=== PATIENT | female | born 1950 | race Hispanic/Latino ===

== ENCOUNTER 2016-10-01 13:05 | Emergency (ER) | payer MEDICARE, BC ==
[2016-10-01 13:05] VITALS: BMI 22.7
[2016-10-01 13:10] VITALS: TEMP 98
[2016-10-01] MEDS ORDERED: DiphenhydrAMINE 50 mg/ml Inj IVP STA (13:16)
[2016-10-01] MEDS ORDERED: methylPREDNISolone 1 GM in Sodium Chloride 0.9% 250 ML IV ONE (13:30)
[2016-10-01 13:40] LABS: ADD MANUAL DIFF? NO
[2016-10-01 13:45] LABS: BASO # 0.02 K/mm3 (0.0-2.0); BASO % 0.5 % (0.0-3.0); EOS # 0.1 (0.0-0.7); EOS % 1.1 % (1.5-5.0); GRAN # 3.18 (1.4-6.5); HEMATOCRIT 31.7 % (36.0-48.0); LYMPH # 0.9 (1.2-3.4); LYMPH % 19.2 % (22.0-35.0); MEAN CELL VOLUME 79.8 fL (80.0-105.0); MEAN CORPUSCULAR HEMOGLOBIN 25.4 pg (25.0-35.0); MEAN CORPUSCULAR HGB CONC 31.9 g/dl (31.0-37.0); MEAN PLATELET VOLUME 9.5 fl (7.0-11.0); MONO # 0.3 (0.1-0.6); MONO % 7.2 % (1.0-6.0); PLATELET COUNT 230 10^3/uL (120.0-450.0); RED CELL DISTRIBUTION WIDTH 16.5 % (11.5-14.5); WHITE BLOOD COUNT 4.4 10^3/ul (4.5-11.0)
[2016-10-01 13:53] LABS: ALB/GLOB RATIO 1.6 (1.1-1.8); ALKALINE PHOSPHATASE 72 U/L (38-133); ALT/SGPT 23 U/L (7-56); AST/SGOT 23 U/L (15-39); BILIRUBIN,TOTAL 0.3 mg/dL (0.2-1.3); BLOOD UREA NITROGEN 12 mg/dL (7-21); CALCIUM 9.5 mg/dL (8.4-10.5); CARBON DIOXIDE 26 mmol/L (21-33); CHLORIDE 105 mmol/L (95-110); GFR AFRICAN-AMERICAN > 60; GLUCOSE,RANDOM 86 mg/dL (70-110); POTASSIUM 4.3 mmol/L (3.6-5.0); SODIUM 141 mmol/L (132-148); TOTAL PROTEIN 7.1 g/dL (5.8-8.3)
[2016-10-01 15:08] VITALS: BP 118/75; PULSE 89; RESP 18; O2SAT 98
--- NOTE | 2016-10-01 15:28 | ED PDOC ---
Arrival/HPI - General Chief Complaint: Weakness/Neurological Deficit Time Seen by Provider: 10/01/16 13:12 - History of Present Illness Narrative History of Present Illness (Text): 66yo female with hx of MS, presents from Dr. Bhavna Del Castillo office for a flare. case has been discussed with him and he asked to obtain labs, per script, and to admin 1g solumedrol with benadryl. pt states she is having difficulty ambulating. states this feels identical to her previous MS flare up symptoms. Denies any trauma/injury, no other complaints. Past Medical History - Provider Review Nursing Documentation Reviewed: Yes - Infectious Disease Hx of Infectious Diseases: None - Tetanus Immunization Tetanus Immunization: Unknown - Cardiac Hx Cardiac Disorders: No - Pulmonary Hx Respiratory Disorders: No - Neurological Hx Neurological Disorder: Yes Hx Multiple Sclerosis: Yes - HEENT Hx HEENT Disorder: Yes (wears eyeglassees) - Renal Hx Renal Disorder: No - Endocrine/Metabolic Hx Endocrine Disorders: No - Hematological/Oncological Hx Blood Disorders: No - Integumentary Hx Dermatological Disorder: No - Musculoskeletal/Rheumatological Hx Musculoskeletal Disorders: No Hx Falls: No - Gastrointestinal Hx Gastrointestinal Disorders: No - Genitourinary/Gynecological Hx Genitourinary Disorders: Yes Other/Comment: pt straight caths herself 3/4x's a day - Psychiatric Hx Psychophysiologic Disorder: No Hx Anxiety: No Hx Bipolar Disorder: No Hx Depression: No Hx Emotional Abuse: No Hx Hallucinations: No Hx Panic Disorder: No Hx Post Traumatic Stress Disorder: No Hx Psychosis: No Hx Physical Abuse: No Hx Schizophrenia: No Hx Sexual Abuse: No Hx Substance Use: No - Past Surgical History Past Surgical History: No Previous - Anesthesia Hx Anesthesia: No Hx Anesthesia Reactions: No Hx Malignant Hyperthermia: No - Suicidal Assessment Feels Threatened In Home Enviroment: No Family/Social History Family/Social History: Unknown Family HX Smoking Status: Never Smoked Hx Alcohol Use: No Hx Substance Use: No Hx Substance Use Treatment: No Allergies/Home Meds Allergies/Adverse Reactions: Allergies No Known Allergies Allergy (Verified 10/01/16 13:10) Home Medications: Home Meds Medication Instructions Recorded Confirmed Dalfampridine [Ampyra] 10 mg PO BID 06/20/15 10/01/16 Dimethyl Fumarate [Tecfidera] 240 mg PO BID 06/20/15 10/01/16 Nitrofurantoin Macrocrystal 50 mg PO DAILY 06/20/15 10/01/16 [Macrodantin] Oxybutynin [Ditropan Tab] 10 mg PO QID 06/20/15 10/01/16 Physical Exam - Physical Exam Narrative Physical Exam (Text): - Review of Systems Constitutional: Normal. absent: Fatigue, Weight Change, Fevers Eyes: Normal ENT: denies sore throat, denies tristhmus Respiratory: Normal. absent: SOB, Cough, Sputum Cardiovascular: absent: Chest Pain, Palpitations, Syncope Gastrointestinal: Normal. absent: Abdominal Pain, Diarrhea, Nausea, Vomiting Genitourinary: Normal. absent: Dysuria, Frequency, Hematuria, vaginal bleeding Musculoskeletal: Normal. absent: Arthralgias, Back Pain, Neck Pain Skin: no rashes, no erythema Neurological: difficulty ambulating absent: Focal Weakness Endocrine: Normal Hemo/Lymphatic: Normal Psychiatric: No suicidal or homicidal ideations Physical exam Patient appears age appropriate in no distress, speaking full sentences without difficulty - Systems Exam Head: Present: Atraumatic, Normocephalic Pupils: Present: PERRL Extroacular Muscles: Present: EOMI Conjunctiva: Present: Normal Mouth: Present: Moist Mucous Membranes Neck: Present: Normal Range of Motion. No: MIDLINE TENDERNESS, Paraspinal Tenderness Respiratory/Chest: Present: Clear to Auscultation, Good Air Exchange. No: Respiratory Distress, Accessory Muscle Use, Tachypneic Cardiovascular: Present: Regular Rate and Rhythm, Normal S1, S2, Peripheal Pulses Present. No: Murmurs Abdomen: Present: Normal Bowel Sounds. No: Tenderness, Distention, Peritoneal Signs, Rebound, Guarding Back: Present: Normal Inspection. No: Midline Tenderness, Paraspinal Tenderness Upper Extremity: Present: Normal Inspection. No: Cyanosis, Edema Lower Extremity: Present: Normal Inspection. No: Edema Neurological: Present: GCS=15, Speech Normal, cranial nerves II through XII fully intact with no cerebellar abnormality. No focal neurological deficits. pt states she does not ambulate, but able to transfer without assistance Skin: Present: Warm, Dry, Normal Color. No: Rashes Lymphatic: Present: OX3, NI, NC Psychiatric: Present: Alert, Oriented x 3, Normal Insight, Normal Concentration Vital Signs Reviewed: Yes Vital Signs Temp Pulse Resp BP Pulse Ox 10/01/16 15:06 89 18 118/75 98 10/01/16 13:07 98 F 91 H 16 121/79 97 Temperature: Afebrile Blood Pressure: Normal Pulse: Regular Respiratory Rate: Normal Appearance: Positive for: Well-Appearing Pain Distress: None Mental Status: Positive for: Alert and Oriented X 3 Medical Decision Making ED Course and Treatment: pt from Dr. Bhavna Franco for emergency medical service manager and labs dw Dr. Franco, asked to dc home and he will f/u labs pt states she lives alone. states she feels comfortable being dc'd home with outpatient f/u Pt states she understands to return to the ER right away for new or worsening symptoms or for inability to f/u with PMD or specialist as instructed. Patient states that she fully agrees with and understands discharge instructions. States that she agrees with the plan and disposition. Verbalized and repeated discharge instructions and plan. I have given the patient opportunity to ask any additional questions. - Lab Interpretations Lab Results: 10/01/16 13:33 10/01/16 13:33 Lab Results 10/01/16 13:33: Sodium 141, Potassium 4.3, Chloride 105, Carbon Dioxide 26, Anion Gap 14, BUN 12, Creatinine 0.6, Est GFR ( Amer) > 60, Est GFR (Non- Af Amer) > 60, Random Glucose 86, Calcium 9.5, Total Bilirubin 0.3, AST 23, ALT 23, Alkaline Phosphatase 72, Total Protein 7.1, Albumin 4.4, Globulin 2.7, Albumin/Globulin Ratio 1.6, Vitamin B12 Pending 10/01/16 13:33: WBC 4.4 L D, RBC 3.97, Hgb 10.1 L, Hct 31.7 L, MCV 79.8 L, MCH 25.4, MCHC 31.9, RDW 16.5 H, Plt Count 230, MPV 9.5, Gran % 72.0 H, Lymph % ( Auto) 19.2 L, [place] % (Auto) 7.2 H, Eos % (Auto) 1.1 L, Baso % (Auto) 0.5, Gran # 3.18, Lymph # 0.9 L, [place] # 0.3, Eos # 0.1, Baso # 0.02 - Medication Orders Current Medication Orders: Discontinued Medications Diphenhydramine HCl (Benadryl) 50 mg IVP STAT STA Stop: 10/01/16 13:17 Last Admin: 10/01/16 13:37 Dose: 50 mg Methylprednisolone 1 gm/ (Sodium Chloride) 250 mls @ 250 mls/hr IV ONCE ONE Stop: 10/01/16 14:29 Last Admin: 10/01/16 13:37 Dose: 250 mls/hr Disposition/Present on Arrival - Present on Arrival Any Indicators Present on Arrival: No History of DVT/PE: No History of Uncontrolled Diabetes: No Urinary Catheter: No History of Decub. Ulcer: No History Surgical Site Infection Following: None - Disposition Have Diagnosis and Disposition been Completed?: Yes Diagnosis: Multiple sclerosis exacerbation Disposition: HOME/ ROUTINE Disposition Time: 15:11 Patient Plan: Discharge Condition: GOOD Additional Instructions: PLEASE RETURN TO THE EMERGENCY DEPARTMENT FOR NEW OR WORSENING SYMPTOMS. RETURN RIGHT AWAY IF YOU CANNOT FOLLOW UP WITH YOUR PRIMARY CARE DOCTOR, CLINIC, OR SPECIALIST IN 1-2 DAYS. Referrals: Manuelito Franco MD [Primary Care Provider] - Follow up with primary Forms: [employer] (Eritrean)
== END 2016-10-01 15:16 | disposition home or self-care (01) ==
LOC: ED 13:05
DX: G35 Multiple sclerosis (principal)
CPT/HCPCS: 80053; 80074; 82306; 82607; 85025; 96374; 99285; J1200; J2930

== ENCOUNTER 2016-11-22 08:52 | Emergency (ER) | payer MEDICARE, BC ==
[2016-11-22 08:52] VITALS: BMI 22.7
[2016-11-22] MEDS ORDERED: DiphenhydrAMINE 50 mg/ml Inj IVP STA (09:32)
[2016-11-22] MEDS ORDERED: methylPREDNISolone 1 GM in Sodium Chloride 0.9% 250 ML IV ONE (09:32)
--- NOTE | 2016-11-22 09:34 | ED PDOC ---
Arrival/HPI - General Time Seen by Provider: 11/22/16 09:08 Historian: Patient - History of Present Illness Narrative History of Present Illness (Text): 11/22/16 09: Cindy Osorio is a 66 year old female, whose past medical history includes Multiple sclerosis, presents to the emergency room complaining of difficulty walking. Patient reports feeling lack of balance. Patient was sent by her neurologist Dr. Ramos. She denies any shortness of breath, chest pain, fever, appetite change or any other associated symptoms. PMD: Dr. Muniz Neurologist: Dr. Franco Symptom Onset: Gradual Symptom Course: Unchanged Activities at Onset: Light Context: Walking Associated Symptoms (Text): gait unbalance Past Medical History - Provider Review Nursing Documentation Reviewed: Yes - Infectious Disease Hx of Infectious Diseases: None - Tetanus Immunization Tetanus Immunization: Unknown - Cardiac Hx Cardiac Disorders: No - Pulmonary Hx Respiratory Disorders: No - Neurological Hx Neurological Disorder: Yes Hx Multiple Sclerosis: Yes - HEENT Hx HEENT Disorder: Yes (wears eyeglassees) - Renal Hx Renal Disorder: No - Endocrine/Metabolic Hx Endocrine Disorders: No - Hematological/Oncological Hx Blood Disorders: No - Integumentary Hx Dermatological Disorder: No - Musculoskeletal/Rheumatological Hx Musculoskeletal Disorders: No Hx Falls: No - Gastrointestinal Hx Gastrointestinal Disorders: No - Genitourinary/Gynecological Hx Genitourinary Disorders: Yes Other/Comment: pt straight caths herself 3/4x's a day - Psychiatric Hx Psychophysiologic Disorder: No Hx Anxiety: No Hx Bipolar Disorder: No Hx Depression: No Hx Emotional Abuse: No Hx Hallucinations: No Hx Panic Disorder: No Hx Post Traumatic Stress Disorder: No Hx Psychosis: No Hx Physical Abuse: No Hx Schizophrenia: No Hx Sexual Abuse: No Hx Substance Use: No - Past Surgical History Past Surgical History: No Previous - Anesthesia Hx Anesthesia: No Hx Anesthesia Reactions: No Hx Malignant Hyperthermia: No - Suicidal Assessment Feels Threatened In Home Enviroment: No Family/Social History - Physician Review Nursing Documentation Reviewed: Yes Family/Social History: Unknown Family HX Smoking Status: Never Smoked Hx Alcohol Use: No Hx Substance Use: No Hx Substance Use Treatment: No Allergies/Home Meds Allergies/Adverse Reactions: Allergies No Known Allergies Allergy (Verified 10/01/16 13:10) Home Medications: Home Meds Medication Instructions Recorded Confirmed Dalfampridine [Ampyra] 10 mg PO BID 06/20/15 11/22/16 Dimethyl Fumarate [Tecfidera] 240 mg PO BID 06/20/15 11/22/16 Nitrofurantoin Macrocrystal 50 mg PO DAILY 06/20/15 11/22/16 [Macrodantin] Oxybutynin [Ditropan Tab] 10 mg PO QID 06/20/15 11/22/16 Review of Systems - Review of Systems Constitutional: absent: Fevers Respiratory: absent: SOB Cardiovascular: absent: Chest Pain Gastrointestinal: absent: Abdominal Pain Neurological: Gait Changes (gait unbalance ). absent: Headache Physical Exam Vital Signs Reviewed: Yes Vital Signs Temp Pulse Resp BP Pulse Ox 11/22/16 13:19 90 18 125/79 99 11/22/16 12:46 89 18 124/69 98 11/22/16 11:24 98 H 18 126/74 98 11/22/16 09:23 98.1 F 110 H 17 129/76 98 Temperature: Afebrile Blood Pressure: Normal Pulse: Tachycardic Respiratory Rate: Normal Appearance: Positive for: Well-Appearing, Non-Toxic, Comfortable Pain Distress: None Mental Status: Positive for: Alert and Oriented X 3 - Systems Exam Head: Present: Atraumatic, Normocephalic Pupils: Present: PERRL Extroacular Muscles: Present: EOMI Conjunctiva: Present: Normal Mouth: Present: Moist Mucous Membranes Neck: Present: Normal Range of Motion Respiratory/Chest: Present: Clear to Auscultation, Good Air Exchange. No: Respiratory Distress, Accessory Muscle Use Cardiovascular: Present: Regular Rate and Rhythm, Normal S1, S2. No: Murmurs Abdomen: Present: Normal Bowel Sounds. No: Tenderness, Distention, Peritoneal Signs Upper Extremity: Present: Normal Inspection. No: Cyanosis, Edema Lower Extremity: Present: Normal ROM. No: Edema Neurological: Present: GCS=15, CN II-XII Intact, Speech Normal. No: Gait Normal (abnormal gait) Skin: Present: Warm, Dry, Normal Color. No: Rashes Psychiatric: Present: Alert, Oriented x 3, Normal Insight, Normal Concentration Medical Decision Making ED Course and Treatment: 11/22/16 Impression: 66 year old female with pmh of MS. Has abnormal gait. Differential Diagnosis included but are not limited to: MS exacerbation Plan: -- Labs -- Benadryl and Solumedrol -- Reassess and disposition Progress Notes: Case discussed with Dr. Franco, who states giving patient 1gram of Solumedrol and Benadryl. Perform reevaluation on patient in two hours. 11/22/16 13:22 On reevaluation, patient was able to walk much better with her walker. We discussed options for admission and she states that she does not want to be admitted. She can walk much better and she'll be great at home with support. I advised to make sure to follow up with Dr. Ramos as scheduled. - Lab Interpretations Lab Results: 11/22/16 10:05 11/22/16 10:05 Lab Results 11/22/16 10:05: Sodium 142, Potassium 3.8, Chloride 107, Carbon Dioxide 26, Anion Gap 13, BUN 14, Creatinine 0.6, Est GFR ( Amer) > 60, Est GFR (Non- Af Amer) > 60, Random Glucose 121 H, Calcium 9.2, Magnesium 1.9, Total Bilirubin 0.2, AST 17, ALT 27, Alkaline Phosphatase 63, Total Protein 6.5, Albumin 4.1, Globulin 2.4, Albumin/Globulin Ratio 1.7 11/22/16 10:05: WBC 3.8 L, RBC 3.87, Hgb 10.0 L, Hct 31.8 L, MCV 82.2, MCH 25.8 , MCHC 31.4, RDW 18.7 H, Plt Count 218, MPV 9.2, Gran % 65.7, Lymph % (Auto) 24.5, [place] % (Auto) 8.5 H, Eos % (Auto) 0.8 L, Baso % (Auto) 0.5, Gran # 2.46, Lymph # 0.9 L, [place] # 0.3, Eos # 0.0, Baso # 0.02 I have reviewed the lab results: Yes - Medication Orders Current Medication Orders: Discontinued Medications Diphenhydramine HCl (Benadryl) 50 mg IVP STAT STA Stop: 11/22/16 09:33 Last Admin: 11/22/16 09:51 Dose: 50 mg IVP Administration Document 11/22/16 09:51 SF (Rec: 11/22/16 09:51 SF [facility] [id number]) Charges for Administration # of IVP Administrations 1 Methylprednisolone 1 gm/ (Sodium Chloride) 250 mls @ 500 mls/hr IV ONCE ONE Stop: 11/22/16 10:01 Last Admin: 11/22/16 10:20 Dose: 500 mls/hr eMAR Start Stop Document 11/22/16 10:20 SF (Rec: 11/22/16 10:20 [id number]) Intravenous Solution Start Date 11/22/16 Start Time 10:20 End Date 11/22/16 End time 10:50 Total Infusion Time 30 - Scribe Statement The provider has reviewed the documentation as recorded by the Scribe Savanna Tate Provider Scribe Attestation: All medical record entries made by the Scribe were at my direction and personally dictated by me. I have reviewed the chart and agree that the record accurately reflects my personal performance of the history, physical exam, medical decision making, and the department course for this patient. I have also personally directed, reviewed, and agree with the discharge instructions and disposition. Disposition/Present on Arrival - Present on Arrival Any Indicators Present on Arrival: No History of DVT/PE: No History of Uncontrolled Diabetes: No Urinary Catheter: No History Surgical Site Infection Following: None - Disposition Have Diagnosis and Disposition been Completed?: Yes Diagnosis: Multiple sclerosis exacerbation Disposition: HOME/ ROUTINE Disposition Time: 13:15 Patient Plan: Discharge Condition: IMPROVED Additional Instructions: Ms Osorio, thank you for letting us take care of you today. Your provider was Dr. Person. You were treated for Multiple Sclerosis exacerbation. The emergency medical care you received today was directed at your acute symptoms. If you were prescribed any medication, please fill it and take as directed. It may take several days for your symptoms to resolve. Return to the Emergency Department if your symptoms worsen, do not improve, or if you have any other problems. Please contact your doctor or call one of the physicians/clinics you have been referred to that are listed on the Patient Visit Information form that is included in your discharge packet. Bring any paperwork you were given at discharge with you along with any medications you are taking to your follow up visit. Our treatment cannot replace ongoing medical care by a primary care provider (PCP) outside of the emergency department. Thank you for allowing the [facility] team to be part of your care today. If you had an X-Ray or CT scan: A Radiologist will review the ED reading if any change in treatment is needed we will contact you. If you had a blood, urine, or wound culture: It will take several days for the results, if any change in treatment is needed we will contact you. If you had an STI test: It will take 48 hours for the results. Please call after 1 week if you have not heard back. Referrals: Michael Franco MD [Staff Provider] - Follow up with primary Jamel Muniz MD [Primary Care Provider] - Follow up with primary Forms: [employer] (Afghan)
[2016-11-22 09:40] VITALS: TEMP 98.1
[2016-11-22 10:17] LABS: BASO # 0.02 K/mm3 (0.0-2.0); BASO % 0.5 % (0.0-3.0); EOS % 0.8 % (1.5-5.0); GRAN # 2.46 (1.4-6.5); GRAN % 65.7 % (50.0-68.0); HEMATOCRIT 31.8 % (36.0-48.0); LYMPH # 0.9 (1.2-3.4); LYMPH % 24.5 % (22.0-35.0); MEAN CELL VOLUME 82.2 fl (80.0-105.0); MEAN CORPUSCULAR HEMOGLOBIN 25.8 pg (25.0-35.0); MEAN CORPUSCULAR HGB CONC 31.4 g/dl (31.0-37.0); MEAN PLATELET VOLUME 9.2 fl (7.0-11.0); MONO # 0.3 (0.1-0.6); MONO % 8.5 % (1.0-6.0); RED CELL DISTRIBUTION WIDTH 18.7 % (11.5-14.5); WHITE BLOOD COUNT 3.8 10^3/ul (4.5-11.0)
[2016-11-22 10:24] LABS: ALB/GLOB RATIO 1.7 (1.1-1.8); ALKALINE PHOSPHATASE 63 U/L (38-126); ALT/SGPT 27 U/L (7-56); AST/SGOT 17 U/L (14-36); BILIRUBIN,TOTAL 0.2 mg/dL (0.2-1.3); BLOOD UREA NITROGEN 14 mg/dL (7-21); CALCIUM 9.2 mg/dL (8.4-10.5); CARBON DIOXIDE 26 mmol/L (21-33); CHLORIDE 107 mmol/L (98-107); GFR AFRICAN-AMERICAN > 60; GLUCOSE,RANDOM 121 mg/dL (70-110); MAGNESIUM 1.9 mg/dL (1.7-2.2); POTASSIUM 3.8 mmol/L (3.6-5.0); SODIUM 142 mmol/L (132-148); TOTAL PROTEIN 6.5 g/dL (5.8-8.3)
[2016-11-22 11:24] VITALS: RESP 18
[2016-11-22 13:20] VITALS: BP 125/79; PULSE 90; O2SAT 99
== END 2016-11-22 13:22 | disposition home or self-care (01) ==
LOC: ED 08:52
DX: G35 Multiple sclerosis (principal)
CPT/HCPCS: 80053; 83735; 85025; 96374; 99285; J1200; J2930

== ENCOUNTER 2018-07-17 12:14 | Inpatient (IN) | payer MEDICARE, BC ==
--- NOTE | 2018-07-17 13:24 | ED PDOC ---
Arrival/HPI - General Chief Complaint: Abdominal Pain Time Seen by Provider: 07/17/18 12:32 Historian: Patient - History of Present Illness Narrative History of Present Illness (Text): 07/17/18 13:18 A 68 year old female, whose past medical history includes MS, patient wheelchair bound, presents to the emergency department with a complaint of nausea and vomiting that stared yesterday. Patient also complains of associated dizziness and epigastric pain. Patient has an infusion yesterday and went home later. Patient notes that she started feeling sick after the infusion. She denies fevers, chills, headache, dizziness, chest pain, shortness of breath, dyspnea on exertion, cough, diarrhea, back pain, neck pain, urinary/bowel changes, or any other complaint. Time/Duration: Other (Yesterday) Symptom Onset: Sudden Symptom Course: Unchanged Activities at Onset: Rest, Light Context: Home Past Medical History - Provider Review Nursing Documentation Reviewed: Yes - Infectious Disease Hx of Infectious Diseases: None - Tetanus Immunization Tetanus Immunization: Unknown - Cardiac Hx Cardiac Disorders: No - Pulmonary Hx Respiratory Disorders: No - Neurological Hx Neurological Disorder: Yes Hx Multiple Sclerosis: Yes - HEENT Hx HEENT Disorder: Yes Hx Blind: Yes - Renal Hx Renal Disorder: No - Endocrine/Metabolic Hx Endocrine Disorders: No - Hematological/Oncological Hx Blood Disorders: No - Integumentary Hx Dermatological Disorder: No - Musculoskeletal/Rheumatological Hx Musculoskeletal Disorders: Yes Hx Falls: Yes Hx Unsteady Gait: Yes - Gastrointestinal Hx Gastrointestinal Disorders: No - Genitourinary/Gynecological Hx Genitourinary Disorders: Yes Hx Urinary Tract Infection: Yes - Psychiatric Hx Psychophysiologic Disorder: No Hx Substance Use: No - Past Surgical History Past Surgical History: No Previous - Anesthesia Hx Anesthesia: No Hx Anesthesia Reactions: No Hx Malignant Hyperthermia: No - Suicidal Assessment Feels Threatened In Home Enviroment: No Family/Social History - Physician Review Nursing Documentation Reviewed: Yes Family/Social History: No Known Family HX Smoking Status: Never Smoked Hx Alcohol Use: No Hx Substance Use: No Hx Substance Use Treatment: No Allergies/Home Meds Allergies/Adverse Reactions: Allergies No Known Allergies Allergy (Verified 07/17/18 12:26) Home Medications: Home Meds Medication Instructions Recorded Confirmed Dalfampridine [Ampyra] 10 mg PO BID 06/20/15 07/17/18 Oxybutynin [Ditropan Tab] 10 mg PO QID 06/20/15 07/17/18 Review of Systems - Physician Review All systems were reviewed & negative as marked: Yes - Review of Systems Constitutional: absent: Fevers Respiratory: absent: SOB, Cough Cardiovascular: absent: Chest Pain, NIEVES Gastrointestinal: Abdominal Pain, Nausea, Vomiting. absent: Stool Changes, Diarrhea Genitourinary Female: absent: Urine Output Changes Musculoskeletal: absent: Back Pain, Neck Pain Neurological: absent: Headache, Dizziness Physical Exam Vital Signs Reviewed: Yes Vital Signs Temp Pulse Resp BP Pulse Ox 07/17/18 12:28 98.7 F 130 H 19 123/82 93 L Temperature: Afebrile Blood Pressure: Normal Pulse: Tachycardic Respiratory Rate: Normal Appearance: Positive for: Well-Appearing, Non-Toxic, Comfortable Pain Distress: None Mental Status: Positive for: Alert and Oriented X 3 - Systems Exam Head: Present: Atraumatic, Normocephalic Pupils: Present: PERRL Extroacular Muscles: Present: EOMI Conjunctiva: Present: Normal Mouth: Present: Dry Neck: Present: Normal Range of Motion Respiratory/Chest: Present: Clear to Auscultation, Good Air Exchange. No: Respiratory Distress, Accessory Muscle Use Cardiovascular: Present: Regular Rate and Rhythm, Normal S1, S2. No: Murmurs Abdomen: Present: Tenderness (epigastric tenderness). No: Distention, Perit guallpa Signs, Rebound, Guarding Back: Present: Normal Inspection Upper Extremity: Present: Normal Inspection. No: Cyanosis, Edema Lower Extremity: Present: Normal Inspection. No: Edema Neurological: Present: GCS=15, CN II-XII Intact, Speech Normal Skin: Present: Warm, Dry, Normal Color. No: Rashes Psychiatric: Present: Alert, Oriented x 3, Normal Insight, Normal Concentration Medical Decision Making ED Course and Treatment: 07/17/18 13:26 Impression: A 68 year old female presents to the emergency department with a complaint of nausea, vomiting, dizziness, and epigastric abdominal pain s/p infusion yesterday. Differential Diagnosis included but are not limited to: Gastritis vs. medication reaction Plan: -- EKG -- Chest X-ray -- Labs -- Pepcid, Zofran -- Reassess and disposition Progress Notes: 07/17/18 12:28: EKG read and interpreted by me shows Sinus Tachycardia at 130 BPM. Normal axis. 07/17/18 16:03 Chest X-Ray shows: IMPRESSION: No active disease - Lab Interpretations I have reviewed the lab results: Yes - Scribe Statement The provider has reviewed the documentation as recorded by the Scribe Ita Khalil Provider Scribe Attestation: All medical record entries made by the Scribe were at my direction and personally dictated by me. I have reviewed the chart and agree that the record accurately reflects my personal performance of the history, physical exam, medical decision making, and the department course for this patient. I have also personally directed, reviewed, and agree with the discharge instructions and disposition. Disposition/Present on Arrival - Present on Arrival Any Indicators Present on Arrival: No History of DVT/PE: No History of Uncontrolled Diabetes: No Urinary Catheter: No History of Decub. Ulcer: No History Surgical Site Infection Following: None - Disposition Have Diagnosis and Disposition been Completed?: Yes Diagnosis: GI bleed Disposition: HOSPITALIZED Disposition Time: 16:22 Patient Plan: Admission Condition: GUARDED
[2018-07-17] MEDS ORDERED: Sodium Chloride 0.9% 1,000 ML IV STA ×2 (13:27→15:05)
[2018-07-17 13:57] LABS: BASO # 0.02 K/mm3 (0.0-2.0); BASO % 0.4 % (0.0-3.0); EOS % 0.2 % (1.5-5.0); HEMOGLOBIN 14.2 g/dL (12.0-16.0); LYMPH # 0.9 (1.2-3.4); LYMPH % 16.6 % (22.0-35.0); MEAN CELL VOLUME 91.1 fl (80.0-105.0); MEAN CORPUSCULAR HEMOGLOBIN 28.7 pg (25.0-35.0); MEAN CORPUSCULAR HGB CONC 31.6 g/dl (31.0-37.0); MEAN PLATELET VOLUME 9.5 fl (7.0-11.0); MONO # 0.6 (0.1-0.6); MONO % 10.1 % (1.0-6.0); RBC 4.94 10^6/uL (3.5-6.1); WHITE BLOOD COUNT 5.5 10^3/uL (4.5-11.0)
[2018-07-17 14:11] LABS: ALB/GLOB RATIO 1.5 (1.1-1.8); ALBUMIN 4.6 g/dL (3.0-4.8); ALT/SGPT 17 U/L (7-56); AST/SGOT 25 U/L (14-36); BLOOD UREA NITROGEN 33 mg/dL (7-21); CALCIUM 10.2 mg/dL (8.4-10.5); GFR NON-AFRICAN AMERICAN > 60; LIPASE 93 U/L (23-300)
[2018-07-17 14:16] LABS: INR 1.15; PARTIAL THROMBOPLASTIN TIME 27.8 Seconds (26.9-38.3); PROTHROMBIN TIME 12.8 SECONDS (9.4-12.5)
[2018-07-17 14:19] LABS: TROPONIN I < 0.01 ng/mL
[2018-07-17 14:51] LABS: URINE BILIRUBIN NEGATIVE (NEGATIVE); URINE BLOOD NEGATIVE (NEGATIVE); URINE GLUCOSE (UA) NEGATIVE (NEGATIVE); URINE LEUKOCYTE ESTERASE TRACE Leu/uL (NEGATIVE); URINE PROTEIN TRACE mg/dL (<30 mg/dL); URINE UROBILINOGEN 0.2 E.U./dL (<1 E.U./dL)
[2018-07-17 14:52] LABS: URINE APPEARANCE TURBID (CLEAR); URINE COLOR YELLOW (YELLOW)
[2018-07-17 14:56] LABS: URINE BACTERIA MANY /hpf; URINE RBC 0 - 2 /hpf (0-2); URINE WBC 0 - 2 /hpf (0-6)
--- NOTE | 2018-07-17 16:07 | RAD ---
Date of service: 07/17/2018 PROCEDURE: CHEST RADIOGRAPH, 1 VIEW HISTORY: r/o infiltrate COMPARISON: 11/20/2012 FINDINGS: LUNGS: Clear. PLEURA: No pneumothorax or pleural fluid seen. CARDIOVASCULAR: No aortic atherosclerotic calcification present. Normal. OSSEOUS STRUCTURES: No significant abnormalities. VISUALIZED UPPER ABDOMEN: Normal. OTHER FINDINGS: None. IMPRESSION: No active disease.
[2018-07-17] MEDS ORDERED: Calcium Gluconate in NS 1 GM/50 ML BAG IV ONE (17:06)
[2018-07-17] MEDS ORDERED: Insulin Regular 1 UNITS/0.01 ML ML SC ONE (17:06)
[2018-07-17] MEDS ORDERED: Dextrose 50% SYRINGE Inj (50 ml) IVP STA (17:06)
[2018-07-17] MEDS ORDERED: Iohexol 240 (50 ml) ONE (18:04)
[2018-07-17] MEDS ORDERED: Iohexol 350 MG/100 ML VIAL ONE (18:16)
--- NOTE | 2018-07-17 18:20 | CP.PCM.HP ---
<Emil Hoover - Last Filed: 07/18/18 06:48> History of Present Illness - History of Present Illness History of Present Illness: H&P for hospitalist Dr. Hood Hoover PGY2 Chief Complaint: nausea, vomiting, and abdominal pain Patient is a 68 F with a history of multiple sclerosis presenting with complains of nausea, vomiting and abdominal pain which began last night and lasted right up until patient was evaluated. Patient states yesterday morning she woke up not feeling too well and as a result had poor oral intake. She states that during the night is when the symptoms started. Patient states she vomited several nacho es, however did not notice any dark colored, brown or blood in vomitus. Upon evaluating patient now she states that all her symptoms have resolved. As per patient's sister who was in the room she states this is the third occurence for the patient as far as these symptoms of nausea, vomiting and abdominal pain which last about one day and then resolves. To note patient had one session of IV infusion of Tecfidera yesterday with Dr. Diaz for her MS. Patient denies current fevers, chills, diarrhea, abdominal pain, nausea, vomiting, headache, dizziness, shortness of breath, palpitations. PMD: Dr. Muniz Neurologist: Dr. Diaz Insurance: Medicare Pharmacy: [facility] PMHx: MS diagnosed in 1982. Patient ambulates with walker but mostly uses wheelchair as of the past year. Patient began receiving infusions of new medication tecfidera 6 months ago. When she has an MS exacerbations she usually feels weak and has vision problems. Family Hx: Mother had breast cancer, father had prostate cancer, and maternal grandfather had cancer not sure which type Allergies: denies Social history: lives at home alone, as per sister, the current plan is to set up assisted living for the patient in [facility] where the brother lives. Labs: WBC 5.5, H&H 14.2&45. Plt 468, Na 141, Potassium 5.3, Chloride 100, BUN/Cr 33/0.9, random glucose 147, Ca 10.2, mg 2.1, AST 25, ALT 17, Alk phos 96, Troponin 0.01, Lipase 93 UA: trace protein, negative Nitrates/Blood, trace LE, WBC 0-2 Stool occult: negative Present on Admission - Present on Admission Any Indicators Present on Admission: No Review of Systems - Review of Systems All systems: reviewed and no additional remarkable complaints except (as mentioned in HPI) Past Patient History - Infectious Disease Hx of Infectious Diseases: None - Tetanus Immunizations Tetanus Immunization: Unknown - Past Social History Smoking Status: Never Smoked - CARDIAC Hx Cardiac Disorders: No - PULMONARY Hx Respiratory Disorders: No - NEUROLOGICAL Hx Neurological Disorder: Yes Hx Multiple Sclerosis: Yes - HEENT Hx HEENT Problems: Yes Hx Blind: Yes - RENAL Hx Chronic Kidney Disease: No - ENDOCRINE/METABOLIC Hx Endocrine Disorders: No - HEMATOLOGICAL/ONCOLOGICAL Hx Blood Disorders: No - INTEGUMENTARY Hx Dermatological Problems: No - MUSCULOSKELETAL/RHEUMATOLOGICAL Hx Musculoskeletal Disorders: Yes Hx Falls: Yes Hx Unsteady Gait: Yes - GASTROINTESTINAL Hx Gastrointestinal Disorders: No - GENITOURINARY/GYNECOLOGICAL Hx Genitourinary Disorders: Yes Hx Urinary Tract Infection: Yes - PSYCHIATRIC Hx Psychophysiologic Disorder: No Hx Substance Use: No - SURGICAL HISTORY Hx Surgeries: No - ANESTHESIA Hx Anesthesia: No Hx Anesthesia Reactions: No Hx Malignant Hyperthermia: No Meds Allergies/Adverse Reactions: Allergies Allergy/AdvReac Type Severity Reaction Status Date / Time No Known Allergies Allergy Verified 07/17/18 12:26 Physical Exam - Constitutional Appears: Non-toxic - Head Exam Head Exam: ATRAUMATIC, NORMAL INSPECTION, NORMOCEPHALIC - Eye Exam Eye Exam: EOMI, Normal appearance - ENT Exam ENT Exam: Mucous Membranes Dry - Respiratory Exam Respiratory Exam: Clear to Auscultation Bilateral, NORMAL BREATHING PATTERN - Cardiovascular Exam Cardiovascular Exam: Tachycardia, REGULAR RHYTHM, +S1, +S2 - GI/Abdominal Exam GI & Abdominal Exam: Normal Bowel Sounds, Soft, Tenderness (epigastric region and left lower quadrant). absent: Distended, Guarding - Extremities Exam Extremities exam: Positive for: normal inspection - Back Exam Back exam: NORMAL INSPECTION - Neurological Exam Neurological exam: Alert, CN II-XII Intact, Oriented x3 - Psychiatric Exam Psychiatric exam: Normal Affect, Normal Mood - Skin Skin Exam: Dry, Intact, Normal Color, Warm Results - Vital Signs Recent Vital Signs: Last Vital Signs Temp 98.7 F 07/17/18 12:28 Pulse 110 H 07/17/18 18:18 Resp 16 07/17/18 18:18 BP 122/72 05/17/19 18:18 Pulse Ox 95 07/17/18 18:18 - Labs Result Diagrams: 07/17/18 13:51 07/17/18 13:51 Labs: Laboratory Results - last 24 hr 07/17/18 07/17/18 07/17/18 13:51 13:51 13:51 WBC 5.5 RBC 4.94 Hgb 14.2 D Hct 45.0 MCV 91.1 D MCH 28.7 MCHC 31.6 RDW 15.0 H Plt Count 468 H MPV 9.5 Neut % (Auto) 72.7 H Lymph % (Auto) 16.6 L [place] % (Auto) 10.1 H Eos % (Auto) 0.2 L Baso % (Auto) 0.4 Lymph # (Auto) 0.9 L [place] # (Auto) 0.6 Eos # (Auto) 0.0 Baso # (Auto) 0.02 Absolute Neuts (auto) 4.02 PT 12.8 H INR 1.15 APTT 27.8 Sodium 141 Potassium 5.3 H Chloride 100 Carbon Dioxide 28 Anion Gap 18 BUN 33 H Creatinine 0.9 Est GFR ( Amer) > 60 Est GFR (Non-Af Amer) > 60 Random Glucose 147 H Calcium 10.2 Magnesium 2.1 Total Bilirubin 0.6 AST 25 ALT 17 Alkaline Phosphatase 96 Troponin I < 0.01 Total Protein 7.7 Albumin 4.6 Globulin 3.1 Albumin/Globulin Ratio 1.5 Lipase 93 Urine Color Urine Appearance Urine pH Ur Specific [place] Urine Protein Urine Glucose (UA) Urine Ketones Urine Blood Urine Nitrate Urine Bilirubin Urine Urobilinogen Ur Leukocyte Esterase Urine RBC Urine WBC Urine Bacteria Stool Occult Blood BBK History Checked 07/17/18 07/17/18 07/17/18 14:10 16:00 17:35 WBC RBC Hgb Hct MCV MCH MCHC RDW Plt Count MPV Neut % (Auto) Lymph % (Auto) [place] % (Auto) Eos % (Auto) Baso % (Auto) Lymph # (Auto) [place] # (Auto) Eos # (Auto) Baso # (Auto) Absolute Neuts (auto) PT INR APTT Sodium Potassium Chloride Carbon Dioxide Anion Gap BUN Creatinine Est GFR ( Amer) Est GFR (Non-Af Amer) Random Glucose Calcium Magnesium Total Bilirubin AST ALT Alkaline Phosphatase Troponin I Total Protein Albumin Globulin Albumin/Globulin Ratio Lipase Urine Color Yellow Urine Appearance Turbid Urine pH 6.0 Ur Specific [place] 1.020 Urine Protein Trace H Urine Glucose (UA) Negative Urine Ketones Negative Urine Blood Negative Urine Nitrate Negative Urine Bilirubin Negative Urine Urobilinogen 0.2 Ur Leukocyte Esterase Trace H Urine RBC 0 - 2 Urine WBC 0 - 2 Urine Bacteria Many Stool Occult Blood Negative BBK History Checked No verified bt Assessment & Plan - Assessment and Plan (Free Text) Assessment: Patient is a 68 F with a history of multiple sclerosis presenting with complains of nausea, vomiting and abdominal pain which began last night and lasted right up until patient was evaluated. Plan: Abdominal pain -CT abdomen/pelvis with IV and PO contrast reveals severe enteritis/colitis; will start rocephin and flagyl -ESR, CRP -CBC, CMP, Mag, Phos, Blood and Urine cultures -Tylenol for pain/fever -Protonix -clear liquid diet Nausea and Vomiting -Zofran -NS@125 Hyperkalemia -Calcium gluconate, Insulin 10 mg IVP, D50 -Repeat BMP and EKG in morning Sinus tachycardia -Most likely due to dehydration vs infection, repeat EKG in morning DVT ppx: SCDs, If patient's hospital stay extends beyond a day consider m edication ppx Case discussed and reviewed with Dr. Morataya <Tracy Morataya - Last Filed: 07/18/18 14:04> Results - Vital Signs Recent Vital Signs: Last Vital Signs Temp 98.6 F 07/18/18 08:02 Pulse 112 H 07/18/18 08:02 Resp 20 07/18/18 08:02 BP 122/75 07/18/18 08:02 Pulse Ox 92 L 07/18/18 08:02 - Labs Result Diagrams: 07/18/18 05:15 07/18/18 05:15 Labs: Laboratory Results - last 24 hr 07/17/18 07/17/18 07/17/18 13:51 13:51 14:10 WBC RBC Hgb Hct MCV MCH MCHC RDW Plt Count MPV Neut % (Auto) Lymph % (Auto) [place] % (Auto) Eos % (Auto) Baso % (Auto) Lymph # (Auto) [place] # (Auto) Eos # (Auto) Baso # (Auto) Absolute Neuts (auto) ESR PT 12.8 H INR 1.15 APTT 27.8 Sodium 141 Potassium 5.3 H Chloride 100 Carbon Dioxide 28 Anion Gap 18 BUN 33 H Creatinine 0.9 Est GFR ( Amer) > 60 Est GFR (Non-Af Amer) > 60 Random Glucose 147 H Calcium 10.2 Phosphorus Magnesium 2.1 Total Bilirubin 0.6 AST 25 ALT 17 Alkaline Phosphatase 96 Troponin I < 0.01 C-React Prot High Sens Total Protein 7.7 Albumin 4.6 Globulin 3.1 Albumin/Globulin Ratio 1.5 Lipase 93 Urine Color Yellow Urine Appearance Turbid Urine pH 6.0 Ur Specific [place] 1.020 Urine Protein Trace H Urine Glucose (UA) Negative Urine Ketones Negative Urine Blood Negative Urine Nitrate Negative Urine Bilirubin Negative Urine Urobilinogen 0.2 Ur Leukocyte Esterase Trace H Urine RBC 0 - 2 Urine WBC 0 - 2 Urine Bacteria Many Stool Occult Blood Blood Type Blood Type Confirm Antibody Screen BBK History Checked 07/17/18 07/17/18 07/17/18 16:00 17:35 23:40 WBC RBC Hgb Hct MCV MCH MCHC RDW Plt Count MPV Neut % (Auto) Lymph % (Auto) [place] % (Auto) Eos % (Auto) Baso % (Auto) Lymph # (Auto) [place] # (Auto) Eos # (Auto) Baso # (Auto) Absolute Neuts (auto) ESR PT INR APTT Sodium Potassium Chloride Carbon Dioxide Anion Gap BUN Creatinine Est GFR ( Amer) Est GFR (Non-Af Amer) Random Glucose Calcium Phosphorus Magnesium Total Bilirubin AST ALT Alkaline Phosphatase Troponin I C-React Prot High Sens Total Protein Albumin Globulin Albumin/Globulin Ratio Lipase Urine Color Urine Appearance Urine pH Ur Specific [place] Urine Protein Urine Glucose (UA) Urine Ketones Urine Blood Urine Nitrate Urine Bilirubin Urine Urobilinogen Ur Leukocyte Esterase Urine RBC Urine WBC Urine Bacteria Stool Occult Blood Negative Blood Type A NEGATIVE Blood Type Confirm A NEGATIVE Antibody Screen Negative BBK History Checked No verified bt 07/17/18 07/17/18 07/18/18 23:40 23:40 05:15 WBC 4.3 L D RBC 3.75 Hgb 10.8 L D Hct 34.6 L MCV 92.3 MCH 28.8 MCHC 31.2 RDW 15.3 H Plt Count 365 MPV 9.4 Neut % (Auto) 48.9 L Lymph % (Auto) 28.7 [place] % (Auto) 17.8 H Eos % (Auto) 4.4 Baso % (Auto) 0.2 Lymph # (Auto) 1.2 [place] # (Auto) 0.8 H Eos # (Auto) 0.2 Baso # (Auto) 0.01 Absolute Neuts (auto) 2.11 ESR 35 H PT INR APTT Sodium Potassium Chloride Carbon Dioxide Anion Gap BUN Creatinine Est GFR ( Amer) Est GFR (Non-Af Amer) Random Glucose Calcium Phosphorus Magnesium Total Bilirubin AST ALT Alkaline Phosphatase Troponin I C-React Prot High Sens > 15.00 H Total Protein Albumin Globulin Albumin/Globulin Ratio Lipase Urine Color Urine Appearance Urine pH Ur Specific [place] Urine Protein Urine Glucose (UA) Urine Ketones Urine Blood Urine Nitrate Urine Bilirubin Urine Urobilinogen Ur Leukocyte Esterase Urine RBC Urine WBC Urine Bacteria Stool Occult Blood Blood Type Blood Type Confirm Antibody Screen BBK History Checked 07/18/18 05:15 WBC RBC Hgb Hct MCV MCH MCHC RDW Plt Count MPV Neut % (Auto) Lymph % (Auto) [place] % (Auto) Eos % (Auto) Baso % (Auto) Lymph # (Auto) [place] # (Auto) Eos # (Auto) Baso # (Auto) Absolute Neuts (auto) ESR PT INR APTT Sodium 140 Potassium 4.6 Chloride 106 Carbon Dioxide 26 Anion Gap 12 BUN 23 H Creatinine 0.7 Est GFR ( Amer) > 60 Est GFR (Non-Af Amer) > 60 Random Glucose 98 Calcium 8.9 Phosphorus 3.6 Magnesium 2.0 Total Bilirubin 0.5 AST 44 H D ALT 23 Alkaline Phosphatase 66 Troponin I C-React Prot High Sens Total Protein 5.9 Albumin 3.4 Globulin 2.5 Albumin/Globulin Ratio 1.4 Lipase Urine Color Urine Appearance Urine pH Ur Specific [place] Urine Protein Urine Glucose (UA) Urine Ketones Urine Blood Urine Nitrate Urine Bilirubin Urine Urobilinogen Ur Leukocyte Esterase Urine RBC Urine WBC Urine Bacteria Stool Occult Blood Blood Type Blood Type Confirm Antibody Screen BBK History Checked Attending/Attestation - Attestation I have personally seen and examined this patient.: Yes I have fully participated in the care of the patient.: Yes I have reviewed all pertinent clinical information: Yes Notes (Text): 07/18/18 13:59 Attending note; Patient seen and examined with resident in the ER. Patient is alert and awake Complaining of nausea and vomiting. Patient is not able to tolerate liquid diet. Complaining of constipation for the past 3 days. Denies any fevers, chills. Denies any urinary complaints Patient got infusion of Tecfidera From Dr. Rivera's office yesterday for MS treatment. Patient is mostly using wheelchair. Walks with a walker at home . Patient is a 68 F with a history of multiple sclerosis presenting with complains of nausea, vomiting and abdominal pain which began last night and lasted right up until patient was evaluated. 1. Intractablenausea and vomiting; patient is currently n.p.o.. Started on IV fluids. Monitor closely. Continue Zofran as needed. Continue IV Pepcid. 2. Tachycardia; secondary to dehydration . Continue IV fluids . 3. Abdominal discomfort; CT abdomen and pelvis ordered . Patient never had EGD or colonoscopy . Will get GI evaluation. 4. Multiple sclerosis; continue infusion with Tecfidera as outpatient. 5. Gait instability. Patient uses wheelchair and walker at home. Upon discharge the patient will follow up with PMD Dr. Muniz.
--- NOTE | 2018-07-17 19:34 | CARD ---
APPROVED REPORT Date of service: 07/17/2018 EKG Measurement Heart [id number] <Conclusion> Sinus tachycardia Otherwise normal ECG
[2018-07-17] MEDS ORDERED: Sodium Chloride 0.9% 1,000 ML IV SCH (21:00)
[2018-07-18 00:15] VITALS: BMI 26.6
[2018-07-18] MEDS: POLYETHYLENE GLYCOL 3350 17 GM/Dose PACKET PO SCH ×3 (02:32→17:24)
[2018-07-18] MEDS: Sodium Chloride 0.9% 1,000 ML IV SCH ×3 (02:32→21:33)
[2018-07-18] MEDS: metroNIDAZOLE IV 500 mg/100 ml 500 MG/100 ML BAG IVPB SCH ×4 (02:32→21:26)
[2018-07-18 06:58] LABS: ALB/GLOB RATIO 1.4 (1.1-1.8); ALBUMIN 3.4 g/dL (3.0-4.8); ALT/SGPT 23 U/L (7-56); AST/SGOT 44 U/L (14-36); BLOOD UREA NITROGEN 23 mg/dL (7-21); CALCIUM 8.9 mg/dL (8.4-10.5); GFR NON-AFRICAN AMERICAN > 60
[2018-07-18 07:50] LABS: BASO # 0.01 K/mm3 (0.0-2.0); BASO % 0.2 % (0.0-3.0); EOS # 0.2 (0.0-0.7); EOS % 4.4 % (1.5-5.0); LYMPH # 1.2 (1.2-3.4); LYMPH % 28.7 % (22.0-35.0); MEAN CELL VOLUME 92.3 fl (80.0-105.0); MEAN CORPUSCULAR HEMOGLOBIN 28.8 pg (25.0-35.0); MEAN CORPUSCULAR HGB CONC 31.2 g/dl (31.0-37.0); MEAN PLATELET VOLUME 9.4 fl (7.0-11.0); MONO # 0.8 (0.1-0.6); MONO % 17.8 % (1.0-6.0); RBC 3.75 10^6/uL (3.5-6.1); RED CELL DISTRIBUTION WIDTH 15.3 % (11.5-14.5); WHITE BLOOD COUNT 4.3 10^3/uL (4.5-11.0)
[2018-07-18 08:11] LABS: HEMOGLOBIN 10.8 g/dL (12.0-16.0)
[2018-07-18] MEDS ORDERED: cefTRIAXone 1 gm 1 GM/100 ML BAG IVPB SCH (10:00)
--- NOTE | 2018-07-18 11:27 | CP.PCM.CON ---
<Gerardo Sears - Last Filed: 07/18/18 11:37> History of Present Illness - History of Present Illness History of Present Illness: PGY5 GI Consult for Dr. Junior White Devon is a 68F w/ hx of MS with complaints of abd discomfort, persistent nausea and vomiting. Pt states that he onets of symptoms has been for 1-2 weeks and has been gradually worsening. She notes decreased appetite with nausea and vomiting after meals. She notes discomfort in the epigastrum and midabdomen. She denies any exacerbating or alleviating factors. She denies any recent fever, chills or diaphoresis. Denies any BM for 3 days, which is abnormal for her. Denies any rectal bleeding. She notes that the emesis did not have any coffee- grounds or bright red blood. In the AM, RN notes almost fecalint maternal in emesis. She denies any opiod use and notes limited motility. CT in the ER revealed dilated small bowel and air fluid levels in the colon, as well as solid stool. Denies any previous colonoscopy or endoscopy PMHx: MS diagnosed in 1982. Patient ambulates with walker but mostly uses wheelchair as of the past year. Patient began receiving infusions of new medication tecfidera 6 months ago. When she has an MS exacerbations she usually feels weak and has vision problems. Family Hx: Mother had breast cancer, father had prostate cancer, and maternal grandfather had cancer not sure which type Allergies: denies Social history: lives at home alone, as per sister, the current plan is to set up assisted living for the patient in [facility] where the brother lives. ROS: other than previously noted above, 12-point ROS in neg Past Patient History - Infectious Disease Hx of Infectious Diseases: None - Tetanus Immunizations Tetanus Immunization: Unknown - Past Social History Smoking Status: Never Smoked - CARDIAC Hx Cardiac Disorders: No - PULMONARY Hx Respiratory Disorders: No - NEUROLOGICAL Hx Neurological Disorder: Yes Hx Multiple Sclerosis: Yes - HEENT Hx HEENT Problems: Yes Hx Blind: Yes - RENAL Hx Chronic Kidney Disease: No - ENDOCRINE/METABOLIC Hx Endocrine Disorders: No - HEMATOLOGICAL/ONCOLOGICAL Hx Blood Disorders: No - INTEGUMENTARY Hx Dermatological Problems: No - MUSCULOSKELETAL/RHEUMATOLOGICAL Hx Musculoskeletal Disorders: Yes Hx Falls: Yes Hx Unsteady Gait: Yes - GASTROINTESTINAL Hx Gastrointestinal Disorders: No - GENITOURINARY/GYNECOLOGICAL Hx Genitourinary Disorders: Yes Hx Urinary Tract Infection: Yes - PSYCHIATRIC Hx Psychophysiologic Disorder: No Hx Substance Use: No - SURGICAL HISTORY Hx Surgeries: No - ANESTHESIA Hx Anesthesia: No Hx Anesthesia Reactions: No Hx Malignant Hyperthermia: No Meds Allergies/Adverse Reactions: Allergies Allergy/AdvReac Type Severity Reaction Status Date / Time No Known Allergies Allergy Verified 07/17/18 12:26 - Medications Medications: Current Medications Acetaminophen (Tylenol 325mg Tab) 650 mg PO Q6H PRN PRN Reason: Fever >100.4 F Metronidazole (Flagyl) 500 mg in 100 mls @ 100 mls/hr IVPB Q8 [facility]; Protocol Last Admin: 07/18/18 06:34 Dose: 100 mls/hr Ceftriaxone Sodium (Rocephin 1 Gram Ivpb) 1 gm in 100 mls @ 100 mls/hr IVPB DAILY [facility]; Protocol Last Admin: 07/18/18 10:09 Dose: 100 mls/hr Sodium Chloride (Sodium Chloride 0.9%) 1,000 mls @ 125 mls/hr IV .Q8H [facility] Last Admin: 07/18/18 02:32 Dose: 125 mls/hr Non-Formulary Medication (Dalfampridine [Ampyra]) 10 mg PO BID [facility] Ondansetron HCl (Zofran Inj) 4 mg IVP Q8H PRN PRN Reason: Nausea/Vomiting Last Admin: 07/18/18 03:57 Dose: 4 mg Oxybutynin Chloride (Ditropan Tab) 10 mg PO QID [facility] Pantoprazole Sodium (Protonix Inj) 40 mg IVP DAILY [facility] Last Admin: 07/18/18 10:09 Dose: 40 mg Polyethylene Glycol (Miralax) 17 gm PO BID [facility] Last Admin: 07/18/18 10:10 Dose: 17 gm Physical Exam - Constitutional Appears: Non-toxic, No Acute Distress, Chronically Ill - Head Exam Head Exam: ATRAUMATIC, NORMOCEPHALIC - Eye Exam Eye Exam: Normal appearance - ENT Exam ENT Exam: Mucous Membranes Moist, Normal Exam - Neck Exam Neck exam: Positive for: Normal Inspection - Respiratory Exam Respiratory Exam: Clear to Auscultation Bilateral, NORMAL BREATHING PATTERN. absent: Rales, Rhonchi, Wheezes, Respiratory Distress - Cardiovascular Exam Cardiovascular Exam: REGULAR RHYTHM, +S1, +S2 - GI/Abdominal Exam GI & Abdominal Exam: Diminished Bowel Sounds, Hypoactive Bowel Sounds, Soft. absent: Distended, Firm, Guarding, Hernia, Rebound, Rigid - Rectal Exam Additional comments: pebble like hard stool in rectal vault, no blood or melena, no masses appreciated - Neurological Exam Neurological exam: Alert, Oriented x3 - Psychiatric Exam Psychiatric exam: Normal Affect, Normal Mood - Skin Skin Exam: Dry, Intact, Normal Color, Warm Results - Vital Signs Recent Vital Signs: Last Vital Signs Temp 98.6 F 07/18/18 08:02 Pulse 112 H 07/18/18 08:02 Resp 20 07/18/18 08:02 BP 122/75 07/18/18 08:02 Pulse Ox 92 L 07/18/18 08:02 - Labs Result Diagrams: 07/18/18 05:15 07/18/18 05:15 Labs: Laboratory Results - last 24 hr 07/17/18 07/17/18 07/17/18 13:51 13:51 13:51 WBC 5.5 RBC 4.94 Hgb 14.2 D Hct 45.0 MCV 91.1 D MCH 28.7 MCHC 31.6 RDW 15.0 H Plt Count 468 H MPV 9.5 Neut % (Auto) 72.7 H Lymph % (Auto) 16.6 L [place] % (Auto) 10.1 H Eos % (Auto) 0.2 L Baso % (Auto) 0.4 Lymph # (Auto) 0.9 L [place] # (Auto) 0.6 Eos # (Auto) 0.0 Baso # (Auto) 0.02 Absolute Neuts (auto) 4.02 ESR PT 12.8 H INR 1.15 APTT 27.8 Sodium 141 Potassium 5.3 H Chloride 100 Carbon Dioxide 28 Anion Gap 18 BUN 33 H Creatinine 0.9 Est GFR ( Amer) > 60 Est GFR (Non-Af Amer) > 60 Random Glucose 147 H Calcium 10.2 Phosphorus Magnesium 2.1 Total Bilirubin 0.6 AST 25 ALT 17 Alkaline Phosphatase 96 Troponin I < 0.01 C-React Prot High Sens Total Protein 7.7 Albumin 4.6 Globulin 3.1 Albumin/Globulin Ratio 1.5 Lipase 93 Urine Color Urine Appearance Urine pH Ur Specific [place] Urine Protein Urine Glucose (UA) Urine Ketones Urine Blood Urine Nitrate Urine Bilirubin Urine Urobilinogen Ur Leukocyte Esterase Urine RBC Urine WBC Urine Bacteria Stool Occult Blood Blood Type Blood Type Confirm Antibody Screen BBK History Checked 07/17/18 07/17/18 07/17/18 14:10 16:00 17:35 WBC RBC Hgb Hct MCV MCH MCHC RDW Plt Count MPV Neut % (Auto) Lymph % (Auto) [place] % (Auto) Eos % (Auto) Baso % (Auto) Lymph # (Auto) [place] # (Auto) Eos # (Auto) Baso # (Auto) Absolute Neuts (auto) ESR PT INR APTT Sodium Potassium Chloride Carbon Dioxide Anion Gap BUN Creatinine Est GFR ( Amer) Est GFR (Non-Af Amer) Random Glucose Calcium Phosphorus Magnesium Total Bilirubin AST ALT Alkaline Phosphatase Troponin I C-React Prot High Sens Total Protein Albumin Globulin Albumin/Globulin Ratio Lipase Urine Color Yellow Urine Appearance Turbid Urine pH 6.0 Ur Specific [place] 1.020 Urine Protein Trace H Urine Glucose (UA) Negative Urine Ketones Negative Urine Blood Negative Urine Nitrate Negative Urine Bilirubin Negative Urine Urobilinogen 0.2 Ur Leukocyte Esterase Trace H Urine RBC 0 - 2 Urine WBC 0 - 2 Urine Bacteria Many Stool Occult Blood Negative Blood Type A NEGATIVE Blood Type Confirm Antibody Screen Negative BBK History Checked No verified bt 07/17/18 07/17/18 07/17/18 23:40 23:40 23:40 WBC RBC Hgb Hct MCV MCH MCHC RDW Plt Count MPV Neut % (Auto) Lymph % (Auto) [place] % (Auto) Eos % (Auto) Baso % (Auto) Lymph # (Auto) [place] # (Auto) Eos # (Auto) Baso # (Auto) Absolute Neuts (auto) ESR 35 H PT INR APTT Sodium Potassium Chloride Carbon Dioxide Anion Gap BUN Creatinine Est GFR ( Amer) Est GFR (Non-Af Amer) Random Glucose Calcium Phosphorus Magnesium Total Bilirubin AST ALT Alkaline Phosphatase Troponin I C-React Prot High Sens > 15.00 H Total Protein Albumin Globulin Albumin/Globulin Ratio Lipase Urine Color Urine Appearance Urine pH Ur Specific [place] Urine Protein Urine Glucose (UA) Urine Ketones Urine Blood Urine Nitrate Urine Bilirubin Urine Urobilinogen Ur Leukocyte Esterase Urine RBC Urine WBC Urine Bacteria Stool Occult Blood Blood Type Blood Type Confirm A NEGATIVE Antibody Screen BBK History Checked 07/18/18 07/18/18 05:15 05:15 WBC 4.3 L D RBC 3.75 Hgb 10.8 L D Hct 34.6 L MCV 92.3 MCH 28.8 MCHC 31.2 RDW 15.3 H Plt Count 365 MPV 9.4 Neut % (Auto) 48.9 L Lymph % (Auto) 28.7 [place] % (Auto) 17.8 H Eos % (Auto) 4.4 Baso % (Auto) 0.2 Lymph # (Auto) 1.2 [place] # (Auto) 0.8 H Eos # (Auto) 0.2 Baso # (Auto) 0.01 Absolute Neuts (auto) 2.11 ESR PT INR APTT Sodium 140 Potassium 4.6 Chloride 106 Carbon Dioxide 26 Anion Gap 12 BUN 23 H Creatinine 0.7 Est GFR ( Amer) > 60 Est GFR (Non-Af Amer) > 60 Random Glucose 98 Calcium 8.9 Phosphorus 3.6 Magnesium 2.0 Total Bilirubin 0.5 AST 44 H D ALT 23 Alkaline Phosphatase 66 Troponin I C-React Prot High Sens Total Protein 5.9 Albumin 3.4 Globulin 2.5 Albumin/Globulin Ratio 1.4 Lipase Urine Color Urine Appearance Urine pH Ur Specific [place] Urine Protein Urine Glucose (UA) Urine Ketones Urine Blood Urine Nitrate Urine Bilirubin Urine Urobilinogen Ur Leukocyte Esterase Urine RBC Urine WBC Urine Bacteria Stool Occult Blood Blood Type Blood Type Confirm Antibody Screen BBK History Checked Assessment & Plan - Assessment and Plan (Free Text) Assessment: Cindy Osorio is a 68F w/ hx of MS who presents with abd pain, nausea, and vomiting Enteritis Dilated small bowel, etiology unclear: no specefic transition point; liquid stool noted throughout small intestine and mix of hard stool and liquid noted in colon on CT Ileus Constipation vs distal impaction intractable nausea and vomiting Hepatic cysts, etiology seem simple, waiting on radiology interpretation Plan: -rectal exam did not reveal any evidence of GI bleed, hard stool removed from vault during exam -will keep NPo in the setting of persistent nausea and vomiting -continue zofran scheduled and protonix IV 40mg daily -recommend water enema, out of bed -if no sig rectal output or continued vomiting, will suggest NG tube placement and surgical eval -serial abd examinations -may require Live CT to eval cyst, but not urgent. may be done after symptoms resolve will D/W Dr. Pacheco <Tracy Morataya - Last Filed: 07/18/18 14:14> Meds - Medications Medications: Current Medications Acetaminophen (Tylenol 325mg Tab) 650 mg PO Q6H PRN PRN Reason: Fever >100.4 F Metronidazole (Flagyl) 500 mg in 100 mls @ 100 mls/hr IVPB Q8 [facility]; Protocol Last Admin: 07/18/18 06:34 Dose: 100 mls/hr Ceftriaxone Sodium (Rocephin 1 Gram Ivpb) 1 gm in 100 mls @ 100 mls/hr IVPB DAILY [facility]; Protocol Last Admin: 07/18/18 10:09 Dose: 100 mls/hr Sodium Chloride (Sodium Chloride 0.9%) 1,000 mls @ 125 mls/hr IV .Q8H [facility] Last Admin: 07/18/18 02:32 Dose: 125 mls/hr Non-Formulary Medication (Dalfampridine [Ampyra]) 10 mg PO BID [facility] Ondansetron HCl (Zofran Inj) 4 mg IVP Q8H PRN PRN Reason: Nausea/Vomiting Last Admin: 07/18/18 03:57 Dose: 4 mg Oxybutynin Chloride (Ditropan Tab) 10 mg PO QID [facility] Pantoprazole Sodium (Protonix Inj) 40 mg IVP DAILY [facility] Last Admin: 07/18/18 10:09 Dose: 40 mg Polyethylene Glycol (Miralax) 17 gm PO BID [facility] Last Admin: 07/18/18 10:10 Dose: 17 gm Results - Vital Signs Recent Vital Signs: Last Vital Signs Temp 98.6 F 07/18/18 08:02 Pulse 112 H 07/18/18 08:02 Resp 20 07/18/18 08:02 BP 122/75 07/18/18 08:02 Pulse Ox 92 L 07/18/18 08:02 - Labs Result Diagrams: 07/18/18 05:15 07/18/18 05:15 Labs: Laboratory Results - last 24 hr 07/17/18 07/17/18 07/17/18 13:51 13:51 13:51 WBC 5.5 RBC 4.94 Hgb 14.2 D Hct 45.0 MCV 91.1 D MCH 28.7 MCHC 31.6 RDW 15.0 H Plt Count 468 H MPV 9.5 Neut % (Auto) 72.7 H Lymph % (Auto) 16.6 L [place] % (Auto) 10.1 H Eos % (Auto) 0.2 L Baso % (Auto) 0.4 Lymph # (Auto) 0.9 L [place] # (Auto) 0.6 Eos # (Auto) 0.0 Baso # (Auto) 0.02 Absolute Neuts (auto) 4.02 ESR PT 12.8 H INR 1.15 APTT 27.8 Sodium 141 Potassium 5.3 H Chloride 100 Carbon Dioxide 28 Anion Gap 18 BUN 33 H Creatinine 0.9 Est GFR ( Amer) > 60 Est GFR (Non-Af Amer) > 60 Random Glucose 147 H Calcium 10.2 Phosphorus Magnesium 2.1 Total Bilirubin 0.6 AST 25 ALT 17 Alkaline Phosphatase 96 Troponin I < 0.01 C-React Prot High Sens Total Protein 7.7 Albumin 4.6 Globulin 3.1 Albumin/Globulin Ratio 1.5 Lipase 93 Urine Color Urine Appearance Urine pH Ur Specific [place] Urine Protein Urine Glucose (UA) Urine Ketones Urine Blood Urine Nitrate Urine Bilirubin Urine Urobilinogen Ur Leukocyte Esterase Urine RBC Urine WBC Urine Bacteria Stool Occult Blood Blood Type Blood Type Confirm Antibody Screen BBK History Checked 07/17/18 07/17/18 07/17/18 14:10 16:00 17:35 WBC RBC Hgb Hct MCV MCH MCHC RDW Plt Count MPV Neut % (Auto) Lymph % (Auto) [place] % (Auto) Eos % (Auto) Baso % (Auto) Lymph # (Auto) [place] # (Auto) Eos # (Auto) Baso # (Auto) Absolute Neuts (auto) ESR PT INR APTT Sodium Potassium Chloride Carbon Dioxide Anion Gap BUN Creatinine Est GFR ( Amer) Est GFR (Non-Af Amer) Random Glucose Calcium Phosphorus Magnesium Total Bilirubin AST ALT Alkaline Phosphatase Troponin I C-React Prot High Sens Total Protein Albumin Globulin Albumin/Globulin Ratio Lipase Urine Color Yellow Urine Appearance Turbid Urine pH 6.0 Ur Specific [place] 1.020 Urine Protein Trace H Urine Glucose (UA) Negative Urine Ketones Negative Urine Blood Negative Urine Nitrate Negative Urine Bilirubin Negative Urine Urobilinogen 0.2 Ur Leukocyte Esterase Trace H Urine RBC 0 - 2 Urine WBC 0 - 2 Urine Bacteria Many Stool Occult Blood Negative Blood Type A NEGATIVE Blood Type Confirm Antibody Screen Negative BBK History Checked No verified bt 07/17/18 07/17/18 07/17/18 23:40 23:40 23:40 WBC RBC Hgb Hct MCV MCH MCHC RDW Plt Count MPV Neut % (Auto) Lymph % (Auto) [place] % (Auto) Eos % (Auto) Baso % (Auto) Lymph # (Auto) [place] # (Auto) Eos # (Auto) Baso # (Auto) Absolute Neuts (auto) ESR 35 H PT INR APTT Sodium Potassium Chloride Carbon Dioxide Anion Gap BUN Creatinine Est GFR ( Amer) Est GFR (Non-Af Amer) Random Glucose Calcium Phosphorus Magnesium Total Bilirubin AST ALT Alkaline Phosphatase Troponin I C-React Prot High Sens > 15.00 H Total Protein Albumin Globulin Albumin/Globulin Ratio Lipase Urine Color Urine Appearance Urine pH Ur Specific [place] Urine Protein Urine Glucose (UA) Urine Ketones Urine Blood Urine Nitrate Urine Bilirubin Urine Urobilinogen Ur Leukocyte Esterase Urine RBC Urine WBC Urine Bacteria Stool Occult Blood Blood Type Blood Type Confirm A NEGATIVE Antibody Screen BBK History Checked 07/18/18 07/18/18 05:15 05:15 WBC 4.3 L D RBC 3.75 Hgb 10.8 L D Hct 34.6 L MCV 92.3 MCH 28.8 MCHC 31.2 RDW 15.3 H Plt Count 365 MPV 9.4 Neut % (Auto) 48.9 L Lymph % (Auto) 28.7 [place] % (Auto) 17.8 H Eos % (Auto) 4.4 Baso % (Auto) 0.2 Lymph # (Auto) 1.2 [place] # (Auto) 0.8 H Eos # (Auto) 0.2 Baso # (Auto) 0.01 Absolute Neuts (auto) 2.11 ESR PT INR APTT Sodium 140 Potassium 4.6 Chloride 106 Carbon Dioxide 26 Anion Gap 12 BUN 23 H Creatinine 0.7 Est GFR ( Amer) > 60 Est GFR (Non-Af Amer) > 60 Random Glucose 98 Calcium 8.9 Phosphorus 3.6 Magnesium 2.0 Total Bilirubin 0.5 AST 44 H D ALT 23 Alkaline Phosphatase 66 Troponin I C-React Prot High Sens Total Protein 5.9 Albumin 3.4 Globulin 2.5 Albumin/Globulin Ratio 1.4 Lipase Urine Color Urine Appearance Urine pH Ur Specific [place] Urine Protein Urine Glucose (UA) Urine Ketones Urine Blood Urine Nitrate Urine Bilirubin Urine Urobilinogen Ur Leukocyte Esterase Urine RBC Urine WBC Urine Bacteria Stool Occult Blood Blood Type Blood Type Confirm Antibody Screen BBK History Checked Attending/Attestation - Attestation I have personally seen and examined this patient.: Yes I have fully participated in the care of the patient.: Yes I have reviewed all pertinent clinical information: Yes Notes (Text): Attending note; GI consult note is for DR. Pacheco. Not for Dr. Morataya. <Lon Pacheco V - Last Filed: 07/18/18 23:37> Meds - Medications Medications: Current Medications Acetaminophen (Tylenol 325mg Tab) 650 mg PO Q6H PRN PRN Reason: Fever >100.4 F Acetaminophen (Tylenol 325 Mg Supp) 650 mg RC Q6H PRN PRN Reason: Fever >100.4 F Last Admin: 07/18/18 17:38 Dose: 650 mg Metronidazole (Flagyl) 500 mg in 100 mls @ 100 mls/hr IVPB Q8 [facility]; Protocol Last Admin: 07/18/18 21:26 Dose: 100 mls/hr Ceftriaxone Sodium (Rocephin 1 Gram Ivpb) 1 gm in 100 mls @ 100 mls/hr IVPB DAILY [facility]; Protocol Last Admin: 07/18/18 10:09 Dose: 100 mls/hr Sodium Chloride (Sodium Chloride 0.9%) 1,000 mls @ 125 mls/hr IV .Q8H [facility] Last Admin: 07/18/18 21:33 Dose: 125 mls/hr Non-Formulary Medication (Dalfampridine [Ampyra]) 10 mg PO BID [facility] Last Admin: 07/18/18 17:24 Dose: Not Given Ondansetron HCl (Zofran Inj) 4 mg IVP Q8H PRN PRN Reason: Nausea/Vomiting Last Admin: 07/18/18 13:46 Dose: 4 mg Oxybutynin Chloride (Ditropan Tab) 10 mg PO QID [facility] Last Admin: 07/18/18 21:26 Dose: 10 mg Pantoprazole Sodium (Protonix Inj) 40 mg IVP DAILY [facility] Last Admin: 07/18/18 10:09 Dose: 40 mg Polyethylene Glycol (Miralax) 17 gm PO BID [facility] Last Admin: 07/18/18 17:24 Dose: Not Given Results - Vital Signs Recent Vital Signs: Last Vital Signs Temp 99.8 F H 07/18/18 18:03 Pulse 119 H 07/18/18 18:03 Resp 20 07/18/18 18:03 BP 128/77 07/18/18 18:03 Pulse Ox 91 L 07/18/18 18:03 - Labs Result Diagrams: 07/18/18 05:15 07/18/18 05:15 Labs: Laboratory Results - last 24 hr 07/17/18 07/17/18 07/17/18 23:40 23:40 23:40 WBC RBC Hgb Hct MCV MCH MCHC RDW Plt Count MPV Neut % (Auto) Lymph % (Auto) [place] % (Auto) Eos % (Auto) Baso % (Auto) Lymph # (Auto) [place] # (Auto) Eos # (Auto) Baso # (Auto) Absolute Neuts (auto) ESR 35 H Sodium Potassium Chloride Carbon Dioxide Anion Gap BUN Creatinine Est GFR ( Amer) Est GFR (Non-Af Amer) Random Glucose Calcium Phosphorus Magnesium Total Bilirubin AST ALT Alkaline Phosphatase C-React Prot High Sens > 15.00 H Total Protein Albumin Globulin Albumin/Globulin Ratio Blood Type Confirm A NEGATIVE 07/18/18 07/18/18 05:15 05:15 WBC 4.3 L D RBC 3.75 Hgb 10.8 L D Hct 34.6 L MCV 92.3 MCH 28.8 MCHC 31.2 RDW 15.3 H Plt Count 365 MPV 9.4 Neut % (Auto) 48.9 L Lymph % (Auto) 28.7 [place] % (Auto) 17.8 H Eos % (Auto) 4.4 Baso % (Auto) 0.2 Lymph # (Auto) 1.2 [place] # (Auto) 0.8 H Eos # (Auto) 0.2 Baso # (Auto) 0.01 Absolute Neuts (auto) 2.11 ESR Sodium 140 Potassium 4.6 Chloride 106 Carbon Dioxide 26 Anion Gap 12 BUN 23 H Creatinine 0.7 Est GFR ( Amer) > 60 Est GFR (Non-Af Amer) > 60 Random Glucose 98 Calcium 8.9 Phosphorus 3.6 Magnesium 2.0 Total Bilirubin 0.5 AST 44 H D ALT 23 Alkaline Phosphatase 66 C-React Prot High Sens Total Protein 5.9 Albumin 3.4 Globulin 2.5 Albumin/Globulin Ratio 1.4 Blood Type Confirm Attending/Attestation - Attestation I have personally seen and examined this patient.: Yes I have fully participated in the care of the patient.: Yes I have reviewed all pertinent clinical information: Yes Notes (Text): This is an addendum to the consultation report dictated by the GI fellow. The patient was seen and evaluated here earlier. Discussed with the medical transcriber. Imaging studies were reviewed. This 68-year-old patient with a long history of multiple sclerosis was admitted for episodes of vomiting for the past 10 days. Symptoms getting progressively worse. Patient does have significantly distended small bowel loops. Patient does have some fecal retention. But small bowel distention is more significant. This patient with a long history of multiple sclerosis Rule out ileus versus partial small bowel obstruction. Would recommend 1. NG tube decompression 2. IV fluid 3. Surgical follow-up 4. Abdominal x-ray in the a.m. 5. Gentle rectal enemas 07/18/18 23:33
--- NOTE | 2018-07-18 14:17 | CT ---
Date of service: 07/17/2018 PROCEDURE: CT Abdomen and Pelvis with contrast HISTORY: abd pain COMPARISON: None. TECHNIQUE: Contrast dose: 100 cc of Omni 350 Radiation dose: Total exam DLP = 319.35 mGy-cm. This CT exam was performed using one or more of the following dose reduction techniques: Automated exposure control, adjustment of the mA and/or kV according to patient size, and/or use of iterative reconstruction technique. FINDINGS: LOWER THORAX: Unremarkable. LIVER: Unremarkable. No gross lesion or ductal dilatation. Multiple small hepatic cysts. GALLBLADDER AND BILE DUCTS: Unremarkable. PANCREAS: Unremarkable. No gross lesion or ductal dilatation. SPLEEN: Unremarkable. ADRENALS: Unremarkable. No mass. KIDNEYS AND URETERS: Unremarkable. No hydronephrosis. No solid mass. VASCULATURE: Unremarkable. No aortic aneurysm. No aortic atherosclerotic calcification or mural plaque present. BOWEL: Multiple dilated fluid-filled loops of small bowel are seen. There is also some fluid in the cecum. There is no transition point to suggest obstruction. Findings are most consistent with ileus. This could be secondary to enteritis. APPENDIX: Normal appendix. PERITONEUM: Unremarkable. No free fluid. No free air. LYMPH NODES: Unremarkable. No enlarged lymph nodes. BLADDER: Unremarkable. REPRODUCTIVE: Unremarkable. BONES: No acute fracture. OTHER FINDINGS: The report concurs with the preliminary [facility] report IMPRESSION: Multiple dilated fluid-filled loops of small bowel are seen. There is also some fluid in the cecum. There is no transition point to suggest obstruction. Findings are most consistent with ileus. This could be secondary to enteritis.
--- NOTE | 2018-07-18 15:25 | CP.PCM.PN ---
<Darwin Robles - Last Filed: 07/18/18 17:14> Subjective - Date & Time of Evaluation Date of Evaluation: 07/18/18 Time of Evaluation: 08:20 - Subjective Subjective: Darwin Robles DO PGY1 Hospitalist Progress Note for Dr Morataya Patient seen and examined at bedside. She still c/o nausea, non bloody vomiting and diffuse abdominal pain. Patient denies hematochezia, melena, fever, chills, CP, SOB, palpitations Objective - Vital Signs/Intake and Output Vital Signs (last 24 hours): Temp Pulse Resp BP Pulse Ox 98.6 F 112 H 20 122/75 92 L 07/18/18 08:02 07/18/18 08:02 07/18/18 08:02 07/18/18 08:02 07/18/18 08:02 Intake and Output: 07/18/18 07/18/18 06:59 18:59 Intake Total 1010 Balance 1010 - Medications Medications: Current Medications Acetaminophen (Tylenol 325mg Tab) 650 mg PO Q6H PRN PRN Reason: Fever >100.4 F Metronidazole (Flagyl) 500 mg in 100 mls @ 100 mls/hr IVPB Q8 [facility]; Protocol Last Admin: 07/18/18 13:46 Dose: 100 mls/hr Ceftriaxone Sodium (Rocephin 1 Gram Ivpb) 1 gm in 100 mls @ 100 mls/hr IVPB DAILY [facility]; Protocol Last Admin: 07/18/18 10:09 Dose: 100 mls/hr Sodium Chloride (Sodium Chloride 0.9%) 1,000 mls @ 125 mls/hr IV .Q8H [facility] Last Admin: 07/18/18 02:32 Dose: 125 mls/hr Non-Formulary Medication (Dalfampridine [Ampyra]) 10 mg PO BID [facility] Ondansetron HCl (Zofran Inj) 4 mg IVP Q8H PRN PRN Reason: Nausea/Vomiting Last Admin: 07/18/18 13:46 Dose: 4 mg Oxybutynin Chloride (Ditropan Tab) 10 mg PO QID [facility] Last Admin: 07/18/18 13:46 Dose: 10 mg Pantoprazole Sodium (Protonix Inj) 40 mg IVP DAILY [facility] Last Admin: 07/18/18 10:09 Dose: 40 mg Polyethylene Glycol (Miralax) 17 gm PO BID [facility] Last Admin: 07/18/18 10:10 Dose: 17 gm - Labs Labs: 07/18/18 05:15 07/18/18 05:15 PT 12.8 SECONDS (9.4-12.5) H 07/17/18 13:51 INR 1.15 07/17/18 13:51 APTT 27.8 Seconds (26.9-38.3) 07/17/18 13:51 - Constitutional Appears: Well, Non-toxic - Head Exam Head Exam: ATRAUMATIC, NORMAL INSPECTION, NORMOCEPHALIC - Eye Exam Eye Exam: EOMI, Normal appearance, PERRL Pupil Exam: NORMAL ACCOMODATION, PERRL - ENT Exam ENT Exam: Mucous Membranes Moist - Respiratory Exam Respiratory Exam: Clear to Ausculation Bilateral, NORMAL BREATHING PATTERN - Cardiovascular Exam Cardiovascular Exam: REGULAR RHYTHM, +S1, +S2 - GI/Abdominal Exam GI & Abdominal Exam: Soft, Tenderness (epigastric/jaquelin-umbilical). absent: Rigid, Rebound - Extremities Exam Extremities Exam: Full ROM, Normal Capillary Refill, Normal Inspection. absent: Joint Swelling, Pedal Edema - Back Exam Back Exam: NORMAL INSPECTION - Neurological Exam Neurological Exam: Alert, Awake, CN II-XII Intact, Normal Gait, Oriented x3 - Psychiatric Exam Psychiatric exam: Normal Affect, Normal Mood - Skin Skin Exam: Dry, Intact, Normal Color, Warm Assessment and Plan - Assessment and Plan (Free Text) Assessment: 68 y/o female with PMH of MS presents with abdominal pain, nausea, NB vomiting. Admitted to med/surg for further work up Plan: Abdominal pain/ Nausea/vomiting: -CT A/P: dilated small bowel. liquid stool noted throughout small intestine and mix of hard stool and liquid noted in colon -NGT placed -continue zofran, protonix 40 IV -continue abx flagyl, rocephin -NPO -IVF: NS@ 150 cc/hr -continue tylenol prn for fever -GI following DR Pacheco. Possible EGD on Friday -surgery on board, Dr Sanabria Constipation: -rectal exam shows hard stool -water enema h/o multiple sclerosis: -continue home med ampyra -patient uses wheelchair/walker at home PPX: DVT: SCD GI: protonix PT/OT Case reviewed and plan discussed with attending Dr Hood Robles, DO <Tracy Morataya - Last Filed: 07/18/18 17:56> Objective - Vital Signs/Intake and Output Vital Signs (last 24 hours): Temp Pulse Resp BP Pulse Ox 99.8 F H 112 H 20 122/75 92 L 07/18/18 17:38 07/18/18 08:02 07/18/18 08:02 07/18/18 08:02 07/18/18 08:02 Intake and Output: 07/18/18 07/18/18 06:59 18:59 Intake Total 1010 Balance 1010 - Medications Medications: Current Medications Acetaminophen (Tylenol 325mg Tab) 650 mg PO Q6H PRN PRN Reason: Fever >100.4 F Acetaminophen (Tylenol 325 Mg Supp) 650 mg RC Q6H PRN PRN Reason: Fever >100.4 F Last Admin: 07/18/18 17:38 Dose: 650 mg Metronidazole (Flagyl) 500 mg in 100 mls @ 100 mls/hr IVPB Q8 [facility]; Protocol Last Admin: 07/18/18 13:46 Dose: 100 mls/hr Ceftriaxone Sodium (Rocephin 1 Gram Ivpb) 1 gm in 100 mls @ 100 mls/hr IVPB DAILY [facility]; Protocol Last Admin: 07/18/18 10:09 Dose: 100 mls/hr Sodium Chloride (Sodium Chloride 0.9%) 1,000 mls @ 125 mls/hr IV .Q8H [facility] Last Admin: 07/18/18 09:00 Dose: 125 mls/hr Sodium Chloride (Sodium Chloride 0.9%) 500 mls @ 999 mls/hr IV .Q31M [facility] Stop: 07/18/18 18:00 Last Admin: 07/18/18 17:41 Dose: 999 mls/hr Non-Formulary Medication (Dalfampridine [Ampyra]) 10 mg PO BID [facility] Last Admin: 07/18/18 17:24 Dose: Not Given Ondansetron HCl (Zofran Inj) 4 mg IVP Q8H PRN PRN Reason: Nausea/Vomiting Last Admin: 07/18/18 13:46 Dose: 4 mg Oxybutynin Chloride (Ditropan Tab) 10 mg PO QID [facility] Last Admin: 07/18/18 17:24 Dose: Not Given Pantoprazole Sodium (Protonix Inj) 40 mg IVP DAILY [facility] Last Admin: 07/18/18 10:09 Dose: 40 mg Polyethylene Glycol (Miralax) 17 gm PO BID [facility] Last Admin: 07/18/18 17:24 Dose: Not Given - Labs Labs: 07/18/18 05:15 07/18/18 05:15 PT 12.8 SECONDS (9.4-12.5) H 07/17/18 13:51 INR 1.15 07/17/18 13:51 APTT 27.8 Seconds (26.9-38.3) 07/17/18 13:51 Attending/Attestation - Attestation I have personally seen and examined this patient.: Yes I have fully participated in the care of the patient.: Yes I have reviewed all pertinent clinical information, including history, physical exam and plan: Yes Notes (Text): 07/18/18 17:49 Attending note; Patient seen and examined with resident. currently npo. Patient is alert and awake still Complaining of nausea and vomiting. seen by GI today. NG tube placed. Patient is a 68 F with a history of multiple sclerosis presenting with complains of nausea, vomiting and abdominal pain which began last night and lasted right up until patient was evaluated. 1. Intractablenausea and vomiting; patient is currently n.p.o.. Started on IV fluids. s/p NG tube placement. Continue Zofran as needed. Continue IV Protonix. 2. Tachycardia; secondary to dehydration . Continue IV fluids . 3. Abdominal discomfort; CT abdomen and pelvis showed multiple dilated bowel loop fluid filled, liquid stool noted throughout small intestine and mix of hard stool. no transition point noted suggesting ileus vs enteritis. Started on IV rocephin and flagyl. GI evaluation appreciated. Started on enema. plan for EGD on Friday. Surgery evaluation appreciated. 4. Multiple sclerosis; continue infusion with Tecfidera as outpatient. 5. Gait instability. Patient uses wheelchair and walker at home. 6. Urinary retention due to MS. Straight cath prn. Monitor closely with GI and surgery. Diagnosis, treatment options discussed with patient in detail.
--- NOTE | 2018-07-18 15:47 | RAD ---
Date of service: 07/18/2018 HISTORY: NGT placement COMPARISON: 07/17/2018 TECHNIQUE: 1 view obtained. FINDINGS: LUNGS: No active pulmonary disease. PLEURA: No significant pleural effusion identified, no pneumothorax apparent. CARDIOVASCULAR: No aortic atherosclerotic calcification present. Normal cardiac size. No pulmonary vascular congestion. OSSEOUS STRUCTURES: No significant abnormalities. VISUALIZED UPPER ABDOMEN: Nasogastric tube in satisfactory position OTHER FINDINGS: None. IMPRESSION: No active disease. Nasogastric tube in satisfactory position
[2018-07-18] MEDS: DALFAMPRIDINE 10 MG PO SCH (17:24)
[2018-07-18] MEDS ORDERED: Sodium Chloride 0.9% 500 ML IV STA (17:30)
--- NOTE | 2018-07-18 18:30 | CP.PCM.CON ---
History of Present Illness - History of Present Illness History of Present Illness: General Surgery Consult Re: SBO HPI: 68F presented to ED complaining of abd discomfort, persistent nausea and dark brown emesis. Ache gradually progressively worsened over 1-2 weeks. Reports decreased appetite as well. Currently, denies any pain and states it comes and goes mainly in the midabdomen. Denies any exacerbating or alleviating factors. Denies fever, chills, shortness of breath, chest pain, palpitations, hematemesis, hematochezia, melena. Last BM was 3 days ago, but she usually has a BM daily. Denies any opiod use. Notes she can ambulate with walker and help but mostly uses wheelchair as of the past year. No prior colonoscopy. PMH: Multiple sclerosis diagnosed in 1982 PSH: Denies SH: Social EtOH. No tobacco or drug use FH: Mother - breast cancer. Father - prostate cancer All: NKDA Meds: See MAR Review of Systems - Review of Systems All systems: reviewed and no additional remarkable complaints except (as per HPI) Past Patient History - Infectious Disease Hx of Infectious Diseases: None - Tetanus Immunizations Tetanus Immunization: Unknown - Past Social History Smoking Status: Never Smoked - CARDIAC Hx Cardiac Disorders: No - PULMONARY Hx Respiratory Disorders: No - NEUROLOGICAL Hx Neurological Disorder: Yes Hx Multiple Sclerosis: Yes - HEENT Hx HEENT Problems: Yes Hx Blind: Yes - RENAL Hx Chronic Kidney Disease: No - ENDOCRINE/METABOLIC Hx Endocrine Disorders: No - HEMATOLOGICAL/ONCOLOGICAL Hx Blood Disorders: No - INTEGUMENTARY Hx Dermatological Problems: No - MUSCULOSKELETAL/RHEUMATOLOGICAL Hx Musculoskeletal Disorders: Yes Hx Falls: Yes Hx Unsteady Gait: Yes - GASTROINTESTINAL Hx Gastrointestinal Disorders: No - GENITOURINARY/GYNECOLOGICAL Hx Genitourinary Disorders: Yes Hx Urinary Tract Infection: Yes - PSYCHIATRIC Hx Psychophysiologic Disorder: No Hx Substance Use: No - SURGICAL HISTORY Hx Surgeries: No - ANESTHESIA Hx Anesthesia: No Hx Anesthesia Reactions: No Hx Malignant Hyperthermia: No Meds Allergies/Adverse Reactions: Allergies Allergy/AdvReac Type Severity Reaction Status Date / Time No Known Allergies Allergy Verified 07/17/18 12:26 - Medications Medications: Current Medications Acetaminophen (Tylenol 325mg Tab) 650 mg PO Q6H PRN PRN Reason: Fever >100.4 F Acetaminophen (Tylenol 325 Mg Supp) 650 mg RC Q6H PRN PRN Reason: Fever >100.4 F Last Admin: 07/18/18 17:38 Dose: 650 mg Metronidazole (Flagyl) 500 mg in 100 mls @ 100 mls/hr IVPB Q8 [facility]; Protocol Last Admin: 07/18/18 13:46 Dose: 100 mls/hr Ceftriaxone Sodium (Rocephin 1 Gram Ivpb) 1 gm in 100 mls @ 100 mls/hr IVPB DAILY [facility]; Protocol Last Admin: 07/18/18 10:09 Dose: 100 mls/hr Sodium Chloride (Sodium Chloride 0.9%) 1,000 mls @ 125 mls/hr IV .Q8H [facility] Last Admin: 07/18/18 09:00 Dose: 125 mls/hr Non-Formulary Medication (Dalfampridine [Ampyra]) 10 mg PO BID [facility] Last Admin: 07/18/18 17:24 Dose: Not Given Ondansetron HCl (Zofran Inj) 4 mg IVP Q8H PRN PRN Reason: Nausea/Vomiting Last Admin: 07/18/18 13:46 Dose: 4 mg Oxybutynin Chloride (Ditropan Tab) 10 mg PO QID [facility] Last Admin: 07/18/18 17:24 Dose: Not Given Pantoprazole Sodium (Protonix Inj) 40 mg IVP DAILY [facility] Last Admin: 07/18/18 10:09 Dose: 40 mg Polyethylene Glycol (Miralax) 17 gm PO BID [facility] Last Admin: 07/18/18 17:24 Dose: Not Given Physical Exam - Constitutional Appears: Non-toxic, No Acute Distress - Head Exam Head Exam: ATRAUMATIC, NORMOCEPHALIC - Eye Exam Eye Exam: EOMI, PERRL. absent: Scleral icterus - ENT Exam ENT Exam: Mucous Membranes Moist Additional comments: NGT in place with brown liquid output, 120cc in canister trachea midline - Neck Exam Neck exam: Negative for: Lymphadenopathy, Tenderness - Respiratory Exam Respiratory Exam: NORMAL BREATHING PATTERN. absent: Respiratory Distress - GI/Abdominal Exam GI & Abdominal Exam: Distended (non tympanic), Guarding, Soft, Tenderness (minimal on deep palpation). absent: Firm, Rebound, Rigid - Rectal Exam Rectal Exam: Deferred - Extremities Exam Extremities exam: Positive for: normal capillary refill. Negative for: calf tenderness, pedal edema - Back Exam Back exam: absent: CVA tenderness (L), CVA tenderness (R) - Neurological Exam Neurological exam: Alert, Oriented x3 - Psychiatric Exam Psychiatric exam: Normal Affect, Normal Mood - Skin Skin Exam: Dry, Warm Results - Vital Signs Recent Vital Signs: Last Vital Signs Temp 99.8 F H 07/18/18 18:03 Pulse 119 H 07/18/18 18:03 Resp 20 07/18/18 18:03 BP 128/77 07/18/18 18:03 Pulse Ox 91 L 07/18/18 18:03 - Labs Result Diagrams: 07/18/18 05:15 07/18/18 05:15 Labs: Laboratory Results - last 24 hr 07/17/18 07/17/18 07/17/18 17:35 23:40 23:40 WBC RBC Hgb Hct MCV MCH MCHC RDW Plt Count MPV Neut % (Auto) Lymph % (Auto) [place] % (Auto) Eos % (Auto) Baso % (Auto) Lymph # (Auto) [place] # (Auto) Eos # (Auto) Baso # (Auto) Absolute Neuts (auto) ESR 35 H Sodium Potassium Chloride Carbon Dioxide Anion Gap BUN Creatinine Est GFR ( Amer) Est GFR (Non-Af Amer) Random Glucose Calcium Phosphorus Magnesium Total Bilirubin AST ALT Alkaline Phosphatase C-React Prot High Sens Total Protein Albumin Globulin Albumin/Globulin Ratio Blood Type A NEGATIVE Blood Type Confirm A NEGATIVE Antibody Screen Negative 07/17/18 07/18/18 07/18/18 23:40 05:15 05:15 WBC 4.3 L D RBC 3.75 Hgb 10.8 L D Hct 34.6 L MCV 92.3 MCH 28.8 MCHC 31.2 RDW 15.3 H Plt Count 365 MPV 9.4 Neut % (Auto) 48.9 L Lymph % (Auto) 28.7 [place] % (Auto) 17.8 H Eos % (Auto) 4.4 Baso % (Auto) 0.2 Lymph # (Auto) 1.2 [place] # (Auto) 0.8 H Eos # (Auto) 0.2 Baso # (Auto) 0.01 Absolute Neuts (auto) 2.11 ESR Sodium 140 Potassium 4.6 Chloride 106 Carbon Dioxide 26 Anion Gap 12 BUN 23 H Creatinine 0.7 Est GFR ( Amer) > 60 Est GFR (Non-Af Amer) > 60 Random Glucose 98 Calcium 8.9 Phosphorus 3.6 Magnesium 2.0 Total Bilirubin 0.5 AST 44 H D ALT 23 Alkaline Phosphatase 66 C-React Prot High Sens > 15.00 H Total Protein 5.9 Albumin 3.4 Globulin 2.5 Albumin/Globulin Ratio 1.4 Blood Type Blood Type Confirm Antibody Screen - Imaging and Cardiology CT scan - abdomen Status: Image reviewed by me, Report reviewed by me Assessment & Plan - Assessment and Plan (Free Text) Assessment: 68F with neuropathic ileus, possibly with some enteritis Plan: NPO IVF NGT in place Strict I&Os Pain control PRN Monitor for bowel function Serial abd exams Dulcolax suppository Recommend daily bowel regimen once return of bowel function and as outpatient D/W Dr. Elly Luciano PGY4
--- NOTE | 2018-07-18 19:08 | CARD ---
APPROVED REPORT Date of service: 07/18/2018 EKG Measurement Heart [id number] <Conclusion> Sinus tachycardia Otherwise normal ECG
[2018-07-19] MEDS: Sodium Chloride 0.9% 1,000 ML IV SCH ×2 (01:00→18:44)
[2018-07-19] MEDS: metroNIDAZOLE IV 500 mg/100 ml 500 MG/100 ML BAG IVPB SCH (05:14)
[2018-07-19 06:50] LABS: BASO # 0.03 K/mm3 (0.0-2.0); BASO % 0.6 % (0.0-3.0); EOS # 0.3 (0.0-0.7); EOS % 6.7 % (1.5-5.0); HEMOGLOBIN 9.5 g/dL (12.0-16.0); LYMPH # 1.2 (1.2-3.4); LYMPH % 24.8 % (22.0-35.0); MEAN CELL VOLUME 92.9 fl (80.0-105.0); MEAN CORPUSCULAR HEMOGLOBIN 27.9 pg (25.0-35.0); MEAN CORPUSCULAR HGB CONC 30.1 g/dl (31.0-37.0); MEAN PLATELET VOLUME 9.2 fl (7.0-11.0); MONO # 0.7 (0.1-0.6); MONO % 15.4 % (1.0-6.0); RBC 3.4 10^6/uL (3.5-6.1); RED CELL DISTRIBUTION WIDTH 15.1 % (11.5-14.5); WHITE BLOOD COUNT 4.8 10^3/uL (4.5-11.0)
[2018-07-19 06:53] LABS: ALB/GLOB RATIO 1.2 (1.1-1.8); ALBUMIN 2.9 g/dL (3.0-4.8); ALT/SGPT 21 U/L (7-56); AST/SGOT 19 U/L (14-36); BLOOD UREA NITROGEN 18 mg/dL (7-21); CALCIUM 8.5 mg/dL (8.4-10.5); GFR NON-AFRICAN AMERICAN > 60
--- NOTE | 2018-07-19 08:25 | CP.PCM.PN ---
<BurgessZachary - Last Filed: 07/19/18 08:21> Subjective - Date & Time of Evaluation Date of Evaluation: 07/19/18 Time of Evaluation: 07:20 - Subjective Subjective: General Surgery Pt seen and examined. NGT is bothering her. Denies abd pain, nausea, emesis, fever. No BM or flatus (had some stool with an enema given yesterday). No new complaints. Objective - Vital Signs/Intake and Output Vital Signs (last 24 hours): Temp Pulse Resp BP Pulse Ox 98.6 F 118 H 20 137/86 93 L 07/19/18 08:01 07/19/18 08:01 07/19/18 08:01 07/19/18 08:01 07/19/18 08:01 Intake and Output: 07/19/18 07/19/18 06:59 18:59 Intake Total 1500 Output Total 2350 Balance -850 - Medications Medications: Current Medications Acetaminophen (Tylenol 325mg Tab) 650 mg PO Q6H PRN PRN Reason: Fever >100.4 F Acetaminophen (Tylenol 325 Mg Supp) 650 mg RC Q6H PRN PRN Reason: Fever >100.4 F Last Admin: 07/18/18 17:38 Dose: 650 mg Metronidazole (Flagyl) 500 mg in 100 mls @ 100 mls/hr IVPB Q8 [facility]; Protocol Last Admin: 07/19/18 05:14 Dose: 100 mls/hr Ceftriaxone Sodium (Rocephin 1 Gram Ivpb) 1 gm in 100 mls @ 100 mls/hr IVPB DAILY [facility]; Protocol Last Admin: 07/18/18 10:09 Dose: 100 mls/hr Sodium Chloride (Sodium Chloride 0.9%) 1,000 mls @ 125 mls/hr IV .Q8H [facility] Last Admin: 07/19/18 01:00 Dose: Not Given Non-Formulary Medication (Dalfampridine [Ampyra]) 10 mg PO BID [facility] Last Admin: 07/18/18 17:24 Dose: Not Given Ondansetron HCl (Zofran Inj) 4 mg IVP Q8H PRN PRN Reason: Nausea/Vomiting Last Admin: 07/18/18 13:46 Dose: 4 mg Oxybutynin Chloride (Ditropan Tab) 10 mg PO QID [facility] Last Admin: 07/18/18 21:26 Dose: 10 mg Pantoprazole Sodium (Protonix Inj) 40 mg IVP DAILY [facility] Last Admin: 07/18/18 10:09 Dose: 40 mg Polyethylene Glycol (Miralax) 17 gm PO BID [facility] Last Admin: 07/18/18 17:24 Dose: Not Given - Labs Labs: 07/19/18 05:00 07/19/18 05:00 PT 12.8 SECONDS (9.4-12.5) H 07/17/18 13:51 INR 1.15 07/17/18 13:51 APTT 27.8 Seconds (26.9-38.3) 07/17/18 13:51 - Constitutional Appears: Non-toxic, No Acute Distress - Head Exam Head Exam: ATRAUMATIC, NORMOCEPHALIC - Eye Exam Eye Exam: EOMI. absent: Scleral icterus - Respiratory Exam Respiratory Exam: NORMAL BREATHING PATTERN. absent: Respiratory Distress - GI/Abdominal Exam GI & Abdominal Exam: Distended (mild), Soft. absent: Firm, Guarding, Rigid, Tenderness, Rebound - Neurological Exam Neurological Exam: Alert, Awake, Oriented x3 - Skin Skin Exam: Dry, Warm Assessment and Plan - Assessment and Plan (Free Text) Assessment: 68F with neuropathic ileus, possibly with some enteritis Plan: NPO IVF NGT repositioned overnight, follow up CXR Strict I&Os Pain control PRN Monitor for bowel function Serial abd exams Recommend daily bowel regimen once return of bowel function and as outpatient D/W Dr. Elly Luciano PGY4 <Joshua Sanabria - Last Filed: 07/20/18 08:29> Objective - Vital Signs/Intake and Output Vital Signs (last 24 hours): Temp Pulse Resp BP Pulse Ox 99 F 121 H 20 135/76 93 L 07/20/18 08:07 07/20/18 08:07 07/20/18 08:07 07/20/18 08:07 07/20/18 08:07 Intake and Output: 07/20/18 07/20/18 06:59 18:59 Intake Total 0 Output Total 800 Balance -800 - Medications Medications: Current Medications Acetaminophen (Tylenol 325mg Tab) 650 mg PO Q6H PRN PRN Reason: Fever >100.4 F Acetaminophen (Tylenol 325 Mg Supp) 650 mg RC Q6H PRN PRN Reason: Fever >100.4 F Last Admin: 07/18/18 17:38 Dose: 650 mg Benzocaine/Menthol (Cepacol Sore Throat) 1 [place] Q2H PRN PRN Reason: Sore Throat Last Admin: 07/19/18 19:39 Dose: 1 [place]ter Sodium Chloride (Sodium Chloride 0.9%) 1,000 mls @ 125 mls/hr IV .Q8H [facility] Last Admin: 07/19/18 18:44 Dose: 125 mls/hr Non-Formulary Medication (Dalfampridine [Ampyra]) 10 mg PO BID [facility] Last Admin: 07/19/18 18:44 Dose: Not Given Ondansetron HCl (Zofran Inj) 4 mg IVP Q8H PRN PRN Reason: Nausea/Vomiting Last Admin: 07/20/18 05:47 Dose: 4 mg Oxybutynin Chloride (Ditropan Tab) 10 mg PO QID [facility] Last Admin: 07/19/18 21:24 Dose: Not Given Pantoprazole Sodium (Protonix Inj) 40 mg IVP DAILY [facility] Last Admin: 07/19/18 09:05 Dose: 40 mg Polyethylene Glycol (Miralax) 17 gm PO BID [facility] Last Admin: 07/19/18 18:44 Dose: Not Given - Labs Labs: 07/20/18 06:30 07/20/18 06:30 PT 12.8 SECONDS (9.4-12.5) H 07/17/18 13:51 INR 1.15 07/17/18 13:51 APTT 27.8 Seconds (26.9-38.3) 07/17/18 13:51 Assessment and Plan - Assessment and Plan (Free Text) Assessment: 68yo F with SBO. Plan: NPO/NGT to LWS/IVF/serial abd exam
[2018-07-19] MEDS ORDERED: Meropenem IV 1 gm in NS 1 GM/50 ML BAG IVPB SCH ×2 (08:45→14:00)
--- NOTE | 2018-07-19 10:14 | RAD ---
Date of service: 07/19/2018 HISTORY: NGT reposition COMPARISON: 07/18/2018 TECHNIQUE: 1 view obtained. FINDINGS: LUNGS: Bibasilar atelectasis. PLEURA: No significant pleural effusion identified, no pneumothorax apparent. CARDIOVASCULAR: No aortic atherosclerotic calcification present. Normal cardiac size. No pulmonary vascular congestion. OSSEOUS STRUCTURES: No significant abnormalities. VISUALIZED UPPER ABDOMEN: Normal. OTHER FINDINGS: None. IMPRESSION: Nasogastric tube in satisfactory position
[2018-07-19] MEDS: POLYETHYLENE GLYCOL 3350 17 GM/Dose PACKET PO SCH ×2 (11:31→18:44)
[2018-07-19] MEDS: DALFAMPRIDINE 10 MG PO SCH ×2 (11:31→18:44)
--- NOTE | 2018-07-19 11:56 | RAD ---
Date of service: 07/19/2018 HISTORY: r/o perforation COMPARISON: CT 07/17/2018 TECHNIQUE: Three view obtained. FINDINGS: BOWEL: Several dilated loops of small bowel are seen in the upper abdomen. A nasogastric tube is seen in satisfactory position BONES: Normal. OTHER FINDINGS: None. IMPRESSION: Several dilated loops of small bowel are seen in the upper abdomen. A nasogastric tube is seen in satisfactory position
--- NOTE | 2018-07-19 13:33 | CP.PCM.PN ---
<Darwin Robles - Last Filed: 07/19/18 13:29> Subjective - Date & Time of Evaluation Date of Evaluation: 07/19/18 Time of Evaluation: 07:40 - Subjective Subjective: Darwin Robles DO PGY1 Hospitalist Progress Note for Dr Sears Patient seen and examined at bedside. She reported improved nausea, abdominal pain. Had BM with ducolax last night. Patient denies hematochezia, melena, fever, chills, CP, SOB, palpitations. NGT in place with o/p of 1450 cc last night Objective - Vital Signs/Intake and Output Vital Signs (last 24 hours): Temp Pulse Resp BP Pulse Ox 98.6 F 118 H 20 137/86 93 L 07/19/18 08:01 07/19/18 08:01 07/19/18 08:01 07/19/18 08:01 07/19/18 08:01 Intake and Output: 07/19/18 07/19/18 06:59 18:59 Intake Total 1500 Output Total 2350 Balance -850 - Medications Medications: Current Medications Acetaminophen (Tylenol 325mg Tab) 650 mg PO Q6H PRN PRN Reason: Fever >100.4 F Acetaminophen (Tylenol 325 Mg Supp) 650 mg RC Q6H PRN PRN Reason: Fever >100.4 F Last Admin: 07/18/18 17:38 Dose: 650 mg Benzocaine/Menthol (Cepacol Sore Throat) 1 lester MT Q2H PRN PRN Reason: Sore Throat Sodium Chloride (Sodium Chloride 0.9%) 1,000 mls @ 125 mls/hr IV .Q8H [facility] Last Admin: 07/19/18 01:00 Dose: Not Given Non-Formulary Medication (Dalfampridine [Ampyra]) 10 mg PO BID [facility] Last Admin: 07/19/18 11:31 Dose: Not Given Ondansetron HCl (Zofran Inj) 4 mg IVP Q8H PRN PRN Reason: Nausea/Vomiting Last Admin: 07/18/18 13:46 Dose: 4 mg Oxybutynin Chloride (Ditropan Tab) 10 mg PO QID [facility] Last Admin: 07/19/18 13:00 Dose: Not Given Pantoprazole Sodium (Protonix Inj) 40 mg IVP DAILY [facility] Last Admin: 07/19/18 09:05 Dose: 40 mg Polyethylene Glycol (Miralax) 17 gm PO BID [facility] Last Admin: 07/19/18 11:31 Dose: Not Given - Labs Labs: 07/19/18 05:00 07/19/18 05:00 PT 12.8 SECONDS (9.4-12.5) H 07/17/18 13:51 INR 1.15 07/17/18 13:51 APTT 27.8 Seconds (26.9-38.3) 07/17/18 13:51 - Additional Findings Additional findings: - Constitutional Appears: Well, Non-toxic - Head Exam Head Exam: ATRAUMATIC, NORMAL INSPECTION, NORMOCEPHALIC - Eye Exam Eye Exam: EOMI, Normal appearance, PERRL Pupil Exam: NORMAL ACCOMODATION, PERRL - ENT Exam ENT Exam: Mucous Membranes Moist - Respiratory Exam Respiratory Exam: Clear to Ausculation Bilateral, NORMAL BREATHING PATTERN - Cardiovascular Exam Cardiovascular Exam: REGULAR RHYTHM, +S1, +S2 - GI/Abdominal Exam GI & Abdominal Exam: Soft, BM nomal, no tnderness/rebound/rigidity - Extremities Exam Extremities Exam: Full ROM, Normal Capillary Refill, Normal Inspection. absent: Joint Swelling, Pedal Edema - Back Exam Back Exam: NORMAL INSPECTION - Neurological Exam Neurological Exam: Alert, Awake, CN II-XII Intact, Oriented x3 - Psychiatric Exam Psychiatric exam: Normal Affect, Normal Mood - Skin Skin Exam: Dry, Intact, Normal Color, Warm Assessment and Plan - Assessment and Plan (Free Text) Assessment: 68 y/o female with PMH of MS presents with abdominal pain, nausea, NB vomiting. Admitted to med/surg for further work up Plan: Abdominal pain/ Nausea/vomiting: -CT A/P: dilated small bowel. liquid stool noted throughout small intestine and mix of hard stool and liquid noted in colon -abd XR 07/19: several dilated small bowel loops in upper abdomen -NGT placed. o/p 1450 cc -continue zofran, protonix 40 IV -NPO -IVF: NS@ 150 cc/hr -continue tylenol prn for fever -GI following DR Pacheco. Possible EGD/colonscopy on Friday -surgery on board, Dr Sanabria Constipation: -patient had BM with ducolax -water enema prn h/o multiple sclerosis: -continue home med ampyra -patient uses wheelchair/walker at home PPX: DVT: SCD GI: protonix PT/OT Case reviewed and plan discussed with attending Dr Orion Robles, DO <Shelly Sears R - Last Filed: 07/19/18 15:44> Objective - Vital Signs/Intake and Output Vital Signs (last 24 hours): Temp Pulse Resp BP Pulse Ox 98.6 F 118 H 20 137/86 93 L 07/19/18 08:01 07/19/18 08:01 07/19/18 08:01 07/19/18 08:01 07/19/18 08:01 Intake and Output: 07/19/18 07/19/18 06:59 18:59 Intake Total 1500 Output Total 2350 Balance -850 - Medications Medications: Current Medications Acetaminophen (Tylenol 325mg Tab) 650 mg PO Q6H PRN PRN Reason: Fever >100.4 F Acetaminophen (Tylenol 325 Mg Supp) 650 mg RC Q6H PRN PRN Reason: Fever >100.4 F Last Admin: 07/18/18 17:38 Dose: 650 mg Benzocaine/Menthol (Cepacol Sore Throat) 1 lester MT Q2H PRN PRN Reason: Sore Throat Last Admin: 07/19/18 14:32 Dose: 1 lester Sodium Chloride (Sodium Chloride 0.9%) 1,000 mls @ 125 mls/hr IV .Q8H [facility] Last Admin: 07/19/18 01:00 Dose: Not Given Non-Formulary Medication (Dalfampridine [Ampyra]) 10 mg PO BID [facility] Last Admin: 07/19/18 11:31 Dose: Not Given Ondansetron HCl (Zofran Inj) 4 mg IVP Q8H PRN PRN Reason: Nausea/Vomiting Last Admin: 07/18/18 13:46 Dose: 4 mg Oxybutynin Chloride (Ditropan Tab) 10 mg PO QID [facility] Last Admin: 07/19/18 13:00 Dose: Not Given Pantoprazole Sodium (Protonix Inj) 40 mg IVP DAILY [facility] Last Admin: 07/19/18 09:05 Dose: 40 mg Polyethylene Glycol (Miralax) 17 gm PO BID [facility] Last Admin: 07/19/18 11:31 Dose: Not Given - Labs Labs: 07/19/18 05:00 07/19/18 05:00 PT 12.8 SECONDS (9.4-12.5) H 07/17/18 13:51 INR 1.15 07/17/18 13:51 APTT 27.8 Seconds (26.9-38.3) 07/17/18 13:51 Attending/Attestation - Attestation I have personally seen and examined this patient.: Yes I have fully participated in the care of the patient.: Yes I have reviewed all pertinent clinical information, including history, physical exam and plan: Yes Notes (Text): Patient seen and examined by me with resident at approximately 9:25AM on 07/19/18 in the emergency room. Case including HPI, physical exam, and assessment and plan discussed with resident. Agree with above with following additio ns/corrections. Patient is a 68 year old female with history of multiple sclerosis that presented to the emergency room with nausea, vomiting, and abdominal pain. Patient states that she is feeling ok. Complains of discomfort with NG tube. However, abdominal pain has resolved. She denies any nausea or vomiting. Patient did have bowel movement after receiving dulcolax suppository. Patient denies any dysuria or burning with urination. No headaches or dizziness. No fevers or chills. No chest pain or shortness of breath. Physical exam: General: Awake and alert lying in bed in no acute distress HEENT: Normocephalic, atraumatic. Extraocular muscles intact. Pupils equal and reactive, no scleral icterus. NG tube in place with brown output. Neck is supple. Cardiovascular: Normal rhythm. Normal S1 and S2. No murmurs, rubs, or gallops appreciated Pulmonary: Normal respiratory effort. No rhonchi, rales, or wheezing appreciated. Gastrointestinal: Soft, nondistended. Nontender. Positive bowel tawanna nds all 4 quadrants. No guarding. Musculoskeletal: Moves all extremities. No calf tenderness. No edema appreciated. Central nervous system: AAO X 3. Dermatologic: Skin warm and dry. Assessment and plan: Patient is a 68 year old female with history of multiple sclerosis that presented to the emergency room with nausea, vomiting, and abdominal pain. 1. Ileus. Enteritis. Surgical team recommendations appreciated. CT abd/pelvis per radiologist showed multiple dilated fluid filled loops of small bowel are seen, there is also some fluid in the cecum, there is no transition point to suggest obstruction, findings most consistent with ileus, this could be secondary to enteritis. Afebrile. No leukocytosis. NGT in place with brown output. Abdominal xray per radiologist showed several dilated loops of small bowel seen in upper abdomen. GI recommendations appreciated. Patient for EGD in AM. 2. Nausea and vomiting. Continue Zofran as needed. Continue IV fluids. Continue NPO 3. Fecal retention. S/P enema and dulcolax suppository. Now with bowel movements. Continue to monitor. 4. ESBL UTI. Placed on Merrem. ID consulted, follow up recommendations. Patient self catheterizes at home. 5. Multiple Sclerosis. Continue home Ampyra. 6. Overactive bladder. Continue home oxybutynin 7. Patient is a full code. Case was discussed in detail with the patient regarding current diagnosis, study results, and treatment plan. All questions answered.
--- NOTE | 2018-07-19 13:51 | CP.PCM.PN ---
<Gerardo Sears - Last Filed: 07/19/18 13:51> Subjective - Date & Time of Evaluation Date of Evaluation: 07/19/18 Time of Evaluation: 09:30 - Subjective Subjective: PGY5 GI Follow-up for Dr Pacheco Pt seen and examined bedside Notes improved abd disfort still NPO BM yesterday after enema NG suction ~1400cc since placement ROS: 12 point ROS conducted, neg other than above Objective - Vital Signs/Intake and Output Vital Signs (last 24 hours): Temp Pulse Resp BP Pulse Ox 98.6 F 118 H 20 137/86 93 L 07/19/18 08:01 07/19/18 08:01 07/19/18 08:01 07/19/18 08:01 07/19/18 08:01 Intake and Output: 07/19/18 07/19/18 06:59 18:59 Intake Total 1500 Output Total 2350 Balance -850 - Medications Medications: Current Medications Acetaminophen (Tylenol 325mg Tab) 650 mg PO Q6H PRN PRN Reason: Fever >100.4 F Acetaminophen (Tylenol 325 Mg Supp) 650 mg RC Q6H PRN PRN Reason: Fever >100.4 F Last Admin: 07/18/18 17:38 Dose: 650 mg Benzocaine/Menthol (Cepacol Sore Throat) 1 lester MT Q2H PRN PRN Reason: Sore Throat Sodium Chloride (Sodium Chloride 0.9%) 1,000 mls @ 125 mls/hr IV .Q8H [facility] Last Admin: 07/19/18 01:00 Dose: Not Given Non-Formulary Medication (Dalfampridine [Ampyra]) 10 mg PO BID [facility] Last Admin: 07/19/18 11:31 Dose: Not Given Ondansetron HCl (Zofran Inj) 4 mg IVP Q8H PRN PRN Reason: Nausea/Vomiting Last Admin: 07/18/18 13:46 Dose: 4 mg Oxybutynin Chloride (Ditropan Tab) 10 mg PO QID [facility] Last Admin: 07/19/18 13:00 Dose: Not Given Pantoprazole Sodium (Protonix Inj) 40 mg IVP DAILY [facility] Last Admin: 07/19/18 09:05 Dose: 40 mg Polyethylene Glycol (Miralax) 17 gm PO BID [facility] Last Admin: 07/19/18 11:31 Dose: Not Given - Labs Labs: 07/19/18 05:00 07/19/18 05:00 PT 12.8 SECONDS (9.4-12.5) H 07/17/18 13:51 INR 1.15 07/17/18 13:51 APTT 27.8 Seconds (26.9-38.3) 07/17/18 13:51 - Constitutional Appears: No Acute Distress, Chronically Ill - Head Exam Head Exam: ATRAUMATIC, NORMOCEPHALIC - Eye Exam Eye Exam: Normal appearance - ENT Exam ENT Exam: Mucous Membranes Moist, Normal Exam Additional comments: NG in place - Neck Exam Neck Exam: Normal Inspection - Respiratory Exam Respiratory Exam: Clear to Ausculation Bilateral, NORMAL BREATHING PATTERN. absent: Rales, Rhonchi, Wheezes - Cardiovascular Exam Cardiovascular Exam: REGULAR RHYTHM, +S1, +S2 - GI/Abdominal Exam GI & Abdominal Exam: Distended, Soft, Normal Bowel Sounds. absent: Guarding, Rigid, Tenderness, Organomegaly, Rebound - Extremities Exam Extremities Exam: absent: Joint Swelling, Pedal Edema - Neurological Exam Neurological Exam: Alert, Awake, Oriented x3 - Psychiatric Exam Psychiatric exam: Normal Affect, Normal Mood - Skin Skin Exam: Dry, Intact, Normal Color, Warm Assessment and Plan - Assessment and Plan (Free Text) Assessment: Cindy Osorio is a 68F w/ hx of MS who presents with abd pain, nausea, and vomiting Possible Enteritis Dilated small bowel, etiology unclear: no specefic transition point; liquid stool noted throughout small intestine and mix of hard stool and liquid noted in colon on CT Ileus Constipation vs distal impaction intractable nausea and vomiting Hepatic cysts, etiology seem simple, waiting on radiology interpretation Plan: -rectal exam did not reveal any evidence of GI bleed, hard stool removed from vault during exam -will keep NPo in the setting of persistent nausea and vomiting -continue zofran scheduled and protonix IV 40mg daily -Keep NG at intermittent suction -surgery on board -abd xray revealed continued dilated bowel loops -will do an EGD tomorrow, NPO after midnight D/W Dr. Pacheco <Lon Pacheco V - Last Filed: 07/20/18 06:57> Objective - Vital Signs/Intake and Output Vital Signs (last 24 hours): Temp Pulse Resp BP Pulse Ox 98.7 F 120 H 20 148/80 93 L 07/19/18 16:19 07/19/18 16:19 07/19/18 16:19 07/19/18 16:19 07/19/18 16:19 Intake and Output: 07/19/18 07/20/18 18:59 06:59 Intake Total 1500 0 Output Total 450 350 Balance 1050 -350 - Medications Medications: Current Medications Acetaminophen (Tylenol 325mg Tab) 650 mg PO Q6H PRN PRN Reason: Fever >100.4 F Acetaminophen (Tylenol 325 Mg Supp) 650 mg RC Q6H PRN PRN Reason: Fever >100.4 F Last Admin: 07/18/18 17:38 Dose: 650 mg Benzocaine/Menthol (Cepacol Sore Throat) 1 lester MT Q2H PRN PRN Reason: Sore Throat Last Admin: 07/19/18 19:39 Dose: 1 lester Sodium Chloride (Sodium Chloride 0.9%) 1,000 mls @ 125 mls/hr IV .Q8H [facility] Last Admin: 07/19/18 18:44 Dose: 125 mls/hr Non-Formulary Medication (Dalfampridine [Ampyra]) 10 mg PO BID [facility] Last Admin: 07/19/18 18:44 Dose: Not Given Ondansetron HCl (Zofran Inj) 4 mg IVP Q8H PRN PRN Reason: Nausea/Vomiting Last Admin: 07/18/18 13:46 Dose: 4 mg Oxybutynin Chloride (Ditropan Tab) 10 mg PO QID [facility] Last Admin: 07/19/18 21:24 Dose: Not Given Pantoprazole Sodium (Protonix Inj) 40 mg IVP DAILY [facility] Last Admin: 07/19/18 09:05 Dose: 40 mg Polyethylene Glycol (Miralax) 17 gm PO BID [facility] Last Admin: 07/19/18 18:44 Dose: Not Given - Labs Labs: 07/19/18 05:00 07/19/18 05:00 PT 12.8 SECONDS (9.4-12.5) H 07/17/18 13:51 INR 1.15 07/17/18 13:51 APTT 27.8 Seconds (26.9-38.3) 05/17/19 13:51 Attending/Attestation - Attestation I have personally seen and examined this patient.: Yes I have fully participated in the care of the patient.: Yes I have reviewed all pertinent clinical information, including history, physical exam and plan: Yes Notes (Text): This patient was seen and evaluated here earlier along with the GI fellow. This is an addendum to the GI fellow's progress note. Repeat abdominal x-ray reviewed still has significant loops of small bowel. The small bowel distension is a real concern as the Patient did not have any abdominal surgery and the colon is realtively non distended with stools 07/19/18 23:58 07/20/18 06:55
[2018-07-19] MEDS: Benzocaine/Menthol (Cepacol) Lozenge MT PRN ×2 (14:32→19:39)
[2018-07-19] MEDS ORDERED: Sodium Chloride 0.9% 500 ML IV STA (17:34)
--- NOTE | 2018-07-19 20:55 | CON ---
DATE: 07/19/2018 Room 368, Bed 1 CHIEF COMPLAINT: Nausea and vomiting. HISTORY OF PRESENT ILLNESS: This is a 68-year-old female with history of multiple sclerosis, anxiety, cataract, multiple urinary tract infections, legally blind, self urinary catheterization at home, who was admitted with nausea and vomiting, abdominal discomfort, low-grade fevers. No chills. No chest pain. The patient denies any dysuria or frequency. She has no urinary symptoms. REVIEW OF SYSTEMS: Twelve-point review of systems is performed. PAST MEDICAL HISTORY: Significant for multiple sclerosis, self urinary catheterization, anxiety, cataract, urinary tract infection, legally blind. PAST SURGICAL HISTORY: Noncontributory. ALLERGIES: THE PATIENT HAS NO KNOWN ALLERGIES. MEDICATIONS AT HOME: and oxybutynin. PHYSICAL EXAMINATION: GENERAL: She is in bed, no acute distress, answering questions appropriately. VITAL SIGNS: Temperature of 99.8, blood pressure is 130/80, respiratory rate of 20, heart rate of 119. HEENT: Unremarkable. NECK: Supple. An NG tube is in place. LUNGS: Have decreased breath sounds. HEART: Normal S1, S2. ABDOMEN: Soft, nontender. No rebound. LABORATORY EXAMINATION: Reveals a white count of 4.8, hemoglobin of 9. Chemistries are reviewed. Urinalysis is unremarkable with only 0-2 wbc's, trace leukocyte esterase, negative nitrites. Stool for occult blood is negative. Blood cultures are negative. The urine culture is E. coli ESBL. CAT scan of the abdomen and pelvis reveals bowel dilatation and dilated fluid-filled loops of small-bowel and consistent ileus, maybe secondary enteritis. The patient's chest x-ray is reported to be negative. ASSESSMENT AND PLAN: This is a 68-year-old female with: 1. Ileus. 2. Asymptomatic bacteriuria with extended spectrum beta-lactamase Escherichia coli, no indication for antibiotics. We will discontinue Flagyl and meropenem. Ileus without leukocytosis or fevers does not require antibiotics, and she has no urinary symptoms, also does not require antibiotics. We will keep the patient off antibiotics. However, we will order ESBL isolation. We will follow with you. Kenn Goodrich MD
[2018-07-20 07:06] LABS: HEMOGLOBIN 9.8 g/dL (12.0-16.0); MEAN CELL VOLUME 93.1 fl (80.0-105.0); MEAN CORPUSCULAR HEMOGLOBIN 28.2 pg (25.0-35.0); MEAN CORPUSCULAR HGB CONC 30.2 g/dl (31.0-37.0); MEAN PLATELET VOLUME 9.4 fl (7.0-11.0); RBC 3.48 10^6/uL (3.5-6.1); RED CELL DISTRIBUTION WIDTH 15.1 % (11.5-14.5); WHITE BLOOD COUNT 6.9 10^3/uL (4.5-11.0)
[2018-07-20 07:09] LABS: BLOOD UREA NITROGEN 16 mg/dL (7-21); CALCIUM 8.5 mg/dL (8.4-10.5); GFR NON-AFRICAN AMERICAN > 60
[2018-07-20] MEDS ORDERED: Potassium Phosphate 15 MMOLE in Sodium Chloride 0.9% 250 ML IVPB ONE (08:50)
[2018-07-20] MEDS: DALFAMPRIDINE 10 MG PO SCH ×2 (09:26→17:00)
[2018-07-20] MEDS: POLYETHYLENE GLYCOL 3350 17 GM/Dose PACKET PO SCH ×2 (09:26→17:00)
[2018-07-20] MEDS: Dextrose 5%/0.9% NS 1,000 ML IV SCH ×2 (09:28→18:36)
[2018-07-20] MEDS: Sodium Chloride 0.9% 1,000 ML IV SCH (09:29)
--- NOTE | 2018-07-20 11:20 | CP.PCM.PN ---
Subjective - Date & Time of Evaluation Date of Evaluation: 07/20/18 Time of Evaluation: 11:17 - Subjective Subjective: SURGERY NOTE FOR DR. MELENDREZ 68F seen and examined at bedside. Patient states she feels better.She denies any flatus. Per nurse patient did have bowel movements yesterday. Patient with NGT 100cc in canister, output is reducing. Objective - Vital Signs/Intake and Output Vital Signs (last 24 hours): Temp Pulse Resp BP Pulse Ox 99 F 121 H 20 135/76 93 L 07/20/18 08:07 07/20/18 08:07 07/20/18 08:07 07/20/18 08:07 07/20/18 08:07 Intake and Output: 07/20/18 07/20/18 06:59 18:59 Intake Total 0 Output Total 800 Balance -800 - Medications Medications: Current Medications Acetaminophen (Tylenol 325mg Tab) 650 mg PO Q6H PRN PRN Reason: Fever >100.4 F Acetaminophen (Tylenol 325 Mg Supp) 650 mg RC Q6H PRN PRN Reason: Fever >100.4 F Last Admin: 07/18/18 17:38 Dose: 650 mg Benzocaine/Menthol (Cepacol Sore Throat) 1 lester MT Q2H PRN PRN Reason: Sore Throat Last Admin: 07/19/18 19:39 Dose: 1 lester Potassium Phosphate 15 mmole/ (Sodium Chloride) 255 mls @ 42.5 mls/hr IVPB ONCE ONE Stop: 07/20/18 14:49 Last Admin: 07/20/18 09:54 Dose: 42.5 mls/hr Dextrose/Sodium Chloride (Dextrose 5%/0.9% Ns 1000 Ml) 1,000 mls @ 125 mls/hr IV .Q8H [facility] Last Admin: 07/20/18 09:28 Dose: 125 mls/hr Non-Formulary Medication (Dalfampridine [Ampyra]) 10 mg PO BID [facility] Last Admin: 07/20/18 09:26 Dose: Not Given Ondansetron HCl (Zofran Inj) 4 mg IVP Q8H PRN PRN Reason: Nausea/Vomiting Last Admin: 07/20/18 05:47 Dose: 4 mg Oxybutynin Chloride (Ditropan Tab) 10 mg PO QID [facility] Last Admin: 07/20/18 09:29 Dose: Not Given Pantoprazole Sodium (Protonix Inj) 40 mg IVP DAILY [facility] Last Admin: 07/20/18 09:29 Dose: 40 mg Polyethylene Glycol (Miralax) 17 gm PO BID [facility] Last Admin: 07/20/18 09:26 Dose: Not Given - Labs Labs: 07/20/18 06:30 07/20/18 06:30 PT 12.8 SECONDS (9.4-12.5) H 07/17/18 13:51 INR 1.15 07/17/18 13:51 APTT 27.8 Seconds (26.9-38.3) 07/17/18 13:51 - Constitutional Appears: Non-toxic, No Acute Distress - Respiratory Exam Respiratory Exam: Clear to Ausculation Bilateral, NORMAL BREATHING PATTERN - Cardiovascular Exam Cardiovascular Exam: REGULAR RHYTHM, +S1, +S2 - GI/Abdominal Exam GI & Abdominal Exam: Soft, Tenderness. absent: Distended, Firm, Guarding, Rigid, Rebound - Neurological Exam Neurological Exam: Alert, Awake Assessment and Plan - Assessment and Plan (Free Text) Assessment: 68F with small bowel disease obstruction vs neurogenic ileus Plan: - NPO - NGT discontinued - monitor for further flatus - monitor for bowel movement - serial abdominal exams Further recs discuss with Dr. Elly Luna, PGY3
--- NOTE | 2018-07-20 13:44 | CP.PCM.PN ---
<Lyn Lewis - Last Filed: 07/20/18 13:47> Subjective - Date & Time of Evaluation Date of Evaluation: 07/20/18 Time of Evaluation: 13:41 - Subjective Subjective: Gastroenterology Fellow/PGY6 Progress Note Patient notes last bowel movement on Friday. Denies abdominal pain. Patient states she is thirsty and hungry. Slowing of NGT output over last 24 hours to 450cc. A 12-point review of systems negative except for as above. Objective - Vital Signs/Intake and Output Vital Signs (last 24 hours): Temp Pulse Resp BP Pulse Ox 99 F 121 H 20 135/76 93 L 07/20/18 08:07 07/20/18 08:07 07/20/18 08:07 07/20/18 08:07 07/20/18 08:07 Intake and Output: 07/20/18 07/20/18 06:59 18:59 Intake Total 0 Output Total 800 Balance -800 - Medications Medications: Current Medications Acetaminophen (Tylenol 325mg Tab) 650 mg PO Q6H PRN PRN Reason: Fever >100.4 F Acetaminophen (Tylenol 325 Mg Supp) 650 mg RC Q6H PRN PRN Reason: Fever >100.4 F Last Admin: 07/18/18 17:38 Dose: 650 mg Benzocaine/Menthol (Cepacol Sore Throat) 1 lester MT Q2H PRN PRN Reason: Sore Throat Last Admin: 07/19/18 19:39 Dose: 1 lester Potassium Phosphate 15 mmole/ (Sodium Chloride) 255 mls @ 42.5 mls/hr IVPB ONCE ONE Stop: 07/20/18 14:49 Last Admin: 07/20/18 09:54 Dose: 42.5 mls/hr Dextrose/Sodium Chloride (Dextrose 5%/0.9% Ns 1000 Ml) 1,000 mls @ 125 mls/hr IV .Q8H [facility] Last Admin: 07/20/18 09:28 Dose: 125 mls/hr Meropenem (Merrem Iv 1 Gm Premix) 1 gm in 50 mls @ 100 mls/hr IVPB Q12 [facility]; Protocol Stop: 07/20/18 22:29 Non-Formulary Medication (Dalfampridine [Ampyra]) 10 mg PO BID [facility] Last Admin: 07/20/18 09:26 Dose: Not Given Ondansetron HCl (Zofran Inj) 4 mg IVP Q8H PRN PRN Reason: Nausea/Vomiting Last Admin: 07/20/18 05:47 Dose: 4 mg Oxybutynin Chloride (Ditropan Tab) 10 mg PO QID [facility] Last Admin: 07/20/18 09:29 Dose: Not Given Pantoprazole Sodium (Protonix Inj) 40 mg IVP DAILY [facility] Last Admin: 07/20/18 09:29 Dose: 40 mg Polyethylene Glycol (Miralax) 17 gm PO BID [facility] Last Admin: 07/20/18 09:26 Dose: Not Given - Labs Labs: 07/20/18 06:30 07/20/18 06:30 PT 12.8 SECONDS (9.4-12.5) H 07/17/18 13:51 INR 1.15 07/17/18 13:51 APTT 27.8 Seconds (26.9-38.3) 07/17/18 13:51 - Constitutional Appears: Non-toxic, No Acute Distress - Head Exam Head Exam: ATRAUMATIC, NORMOCEPHALIC - Eye Exam Eye Exam: EOMI, PERRL. absent: Scleral icterus Pupil Exam: PERRL. absent: Miosis, Mydriatic - ENT Exam ENT Exam: Mucous Membranes Moist, Normal Oropharynx - Neck Exam Neck Exam: Full ROM, Normal Inspection - Cardiovascular Exam Cardiovascular Exam: RRR, +S1, +S2. absent: Gallop, Rubs - GI/Abdominal Exam GI & Abdominal Exam: Soft, Hypoactive Bowel Sounds. absent: Distended, Firm, Guarding, Rigid, Tenderness, Organomegaly, Rebound - Extremities Exam Extremities Exam: Normal Inspection - Neurological Exam Neurological Exam: Alert, Awake - Psychiatric Exam Psychiatric exam: Normal Affect, Normal Mood - Skin Skin Exam: Dry, Intact, Normal Color, Warm Assessment and Plan - Assessment and Plan (Free Text) Assessment: 68 year old female with PMH of MS presenting with abdominal pain, nausea, and vomiting. Active treatment of SBO versus neurogenic ileus without transition point on CT A/P. No prior EGD or colonoscopy. Plan: -surgery managing- discontinued NGT today -monitor clinical status -NPO, follow up surgery recommendations -ordered serial abdominal xray -no plan for endoscopic evaluation at present -will follow clinical course <Lon Pacheco V - Last Filed: 07/22/18 18:49> Objective - Vital Signs/Intake and Output Vital Signs (last 24 hours): Temp Pulse Resp BP Pulse Ox 99 F 118 H 18 130/70 94 L 07/20/18 17:11 07/20/18 17:11 07/20/18 17:11 07/20/18 17:11 07/20/18 17:11 Intake and Output: 07/20/18 07/21/18 18:59 06:59 Intake Total 0 Output Total 400 Balance -400 - Medications Medications: Current Medications Acetaminophen (Tylenol 325mg Tab) 650 mg PO Q6H PRN PRN Reason: Fever >100.4 F Acetaminophen (Tylenol 325 Mg Supp) 650 mg RC Q6H PRN PRN Reason: Fever >100.4 F Last Admin: 07/18/18 17:38 Dose: 650 mg Benzocaine/Menthol (Cepacol Sore Throat) 1 lester MT Q2H PRN PRN Reason: Sore Throat Last Admin: 07/20/18 21:56 Dose: 1 lester Dextrose/Sodium Chloride (Dextrose 5%/0.9% Ns 1000 Ml) 1,000 mls @ 125 mls/hr IV .Q8H [facility] Last Admin: 07/20/18 18:36 Dose: 125 mls/hr Non-Formulary Medication (Dalfampridine [Ampyra]) 10 mg PO BID [facility] Last Admin: 07/20/18 17:00 Dose: Not Given Ondansetron HCl (Zofran Inj) 4 mg IVP Q8H PRN PRN Reason: Nausea/Vomiting Last Admin: 07/20/18 05:47 Dose: 4 mg Oxybutynin Chloride (Ditropan Tab) 10 mg PO QID [facility] Last Admin: 07/20/18 23:03 Dose: Not Given Pantoprazole Sodium (Protonix Inj) 40 mg IVP DAILY [facility] Last Admin: 07/20/18 09:29 Dose: 40 mg Polyethylene Glycol (Miralax) 17 gm PO BID [facility] Last Admin: 07/20/18 17:00 Dose: Not Given - Labs Labs: 07/20/18 06:30 07/20/18 06:30 PT 12.8 SECONDS (9.4-12.5) H 07/17/18 13:51 INR 1.15 07/17/18 13:51 APTT 27.8 Seconds (26.9-38.3) 07/17/18 13:51 Attending/Attestation - Attestation I have personally seen and examined this patient.: Yes I have fully participated in the care of the patient.: Yes I have reviewed all pertinent clinical information, including history, physical exam and plan: Yes Notes (Text): This is a delayed addendum to the progress note dictated by the fellow. The patient was seen and evaluated along with the GI fellow earlier. Small bowel obstruction no transition point seen in the small bowel. No previous surgery. Is a concern when patient had no surgery small bowel obstruction and no hernia. Would need a repeat CT with oral contrast to further evaluate the delayed pictures to evaluate the transition to the colon. Continue surgical follow-up 07/20/18 23:52 07/22/18 18:48
--- NOTE | 2018-07-20 13:54 | CP.PCM.APN ---
Subjective - Date & Time of Evaluation Date of Evaluation: 07/20/18 Time of Evaluation: 10:30 - Subjective Subjective: Pt. seen , sitting up in chair, NGT removed, denied any abdom pain, denied nausea, vomiting. NPO for EGD. Objective - Vital Signs/Intake and Output Vital Signs (last 24 hours): Temp Pulse Resp BP Pulse Ox 99 F 121 H 20 135/76 93 L 07/20/18 08:07 07/20/18 08:07 07/20/18 08:07 07/20/18 08:07 07/20/18 08:07 Intake and Output: 07/20/18 07/20/18 06:59 18:59 Intake Total 0 Output Total 800 Balance -800 - Medications Medications: Current Medications Acetaminophen (Tylenol 325mg Tab) 650 mg PO Q6H PRN PRN Reason: Fever >100.4 F Acetaminophen (Tylenol 325 Mg Supp) 650 mg RC Q6H PRN PRN Reason: Fever >100.4 F Last Admin: 07/18/18 17:38 Dose: 650 mg Benzocaine/Menthol (Cepacol Sore Throat) 1 lester MT Q2H PRN PRN Reason: Sore Throat Last Admin: 07/19/18 19:39 Dose: 1 lester Potassium Phosphate 15 mmole/ (Sodium Chloride) 255 mls @ 42.5 mls/hr IVPB ONCE ONE Stop: 07/20/18 14:49 Last Admin: 07/20/18 09:54 Dose: 42.5 mls/hr Dextrose/Sodium Chloride (Dextrose 5%/0.9% Ns 1000 Ml) 1,000 mls @ 125 mls/hr IV .Q8H [facility] Last Admin: 07/20/18 09:28 Dose: 125 mls/hr Meropenem (Merrem Iv 1 Gm Premix) 1 gm in 50 mls @ 100 mls/hr IVPB Q12 [facility]; Protocol Stop: 07/20/18 22:29 Non-Formulary Medication (Dalfampridine [Ampyra]) 10 mg PO BID [facility] Last Admin: 07/20/18 09:26 Dose: Not Given Ondansetron HCl (Zofran Inj) 4 mg IVP Q8H PRN PRN Reason: Nausea/Vomiting Last Admin: 07/20/18 05:47 Dose: 4 mg Oxybutynin Chloride (Ditropan Tab) 10 mg PO QID [facility] Last Admin: 07/20/18 09:29 Dose: Not Given Pantoprazole Sodium (Protonix Inj) 40 mg IVP DAILY [facility] Last Admin: 07/20/18 09:29 Dose: 40 mg Polyethylene Glycol (Miralax) 17 gm PO BID [facility] Last Admin: 07/20/18 09:26 Dose: Not Given - Labs Labs: 07/20/18 06:30 07/20/18 06:30 PT 12.8 SECONDS (9.4-12.5) H 07/17/18 13:51 INR 1.15 07/17/18 13:51 APTT 27.8 Seconds (26.9-38.3) 07/17/18 13:51 - Constitutional Appears: Well, Non-toxic - Head Exam Head Exam: NORMOCEPHALIC - Neck Exam Neck Exam: Full ROM - Rectal Exam Rectal Exam: Deferred - Exam Exam: absent: Circumcision, NORMAL INSPECTION, Scrotal Swelling, Testicular Tenderness, Uretheral Discharge, Testicular Vertical Lie, Bladder Distension External exam: absent: Ecchymosis, Erythema, Lacerations, Lesions, NORMAL EXTERNAL EXAM, Swelling Speculum exam: absent: Cervical Discharge, Erythema, Foreign Body, Laceration, NORMAL SPECULUM EXAM, Tissue, Vaginal Bleeding, Vaginal Discharge Bimanual exam: absent: Adenexal Mass, Adnexal, Cervical Motion Tendernes, NORMAL BIMANUAL EXAM, Uterine Enlargement, Uterine Tenderness - Extremities Exam Extremities Exam: Full ROM - Back Exam Back Exam: NORMAL INSPECTION - Neurological Exam Neurological Exam: Alert, Awake, Oriented x3 - Psychiatric Exam Psychiatric exam: Normal Affect, Normal Mood - Skin Skin Exam: Normal Color, Warm Assessment and Plan - Assessment and Plan (Free Text) Assessment: ITS Impressions Chest X-Ray 07/17/18 15:08 IMPRESSION: No active disease. Abdomen/Pelvis CT 07/17/18 17:58 IMPRESSION: Multiple dilated fluid-filled loops of small bowel are seen. There is also some fluid in the cecum. There is no transition point to suggest obstruction. Findings are most consistent with ileus. This could be secondary to enteritis. Chest X-Ray 07/18/18 15:19 IMPRESSION: No active disease. Nasogastric tube in satisfactory position Chest X-Ray 07/19/18 08:27 IMPRESSION: Nasogastric tube in satisfactory position Abdomen X-Ray 07/19/18 10:53 IMPRESSION: Several dilated loops of small bowel are seen in the upper abdomen. A nasogastric tube is seen in satisfactory position Assessment: 68 year old female with PMH of MS presenting with abdominal pain, nausea, and vomiting. Active treatment of SBO versus neurogenic ileus , admitted, for further eval and treatment, with NGT inserted, GI consulted. Plan: 1. SBO- NGT removed, patient for EGD per GI. 2. UTI + ESBL- Merrem iV ordered. cont. to monitor clinicAL status and follow closely.
--- NOTE | 2018-07-20 14:18 | RAD ---
Date of service: 07/20/2018 HISTORY: SBO evaluation COMPARISON: None available. TECHNIQUE: Two view obtained. FINDINGS: BOWEL: Decreased size and number of dilated small bowel loops. No evidence of free air BONES: Normal. OTHER FINDINGS: None. IMPRESSION: Decreased size and number of dilated small bowel loops. No evidence of free air
--- NOTE | 2018-07-20 16:25 | CP.PCM.PN ---
<Darwin Robles - Last Filed: 07/20/18 16:22> Subjective - Date & Time of Evaluation Date of Evaluation: 07/20/18 Time of Evaluation: 06:30 - Subjective Subjective: Darwin Robles DO PGY1 Hospitalist Progress Note for Dr Sears Patient seen and examined at bedside. She reported improved nausea, abdominal pain. Patient denies hematochezia, melena, fever, chills, CP, SOB, palpitations. Objective - Vital Signs/Intake and Output Vital Signs (last 24 hours): Temp Pulse Resp BP Pulse Ox 99 F 121 H 20 135/76 93 L 07/20/18 08:07 07/20/18 08:07 07/20/18 08:07 07/20/18 08:07 07/20/18 08:07 Intake and Output: 07/20/18 07/20/18 06:59 18:59 Intake Total 0 Output Total 800 Balance -800 - Medications Medications: Current Medications Acetaminophen (Tylenol 325mg Tab) 650 mg PO Q6H PRN PRN Reason: Fever >100.4 F Acetaminophen (Tylenol 325 Mg Supp) 650 mg RC Q6H PRN PRN Reason: Fever >100.4 F Last Admin: 07/18/18 17:38 Dose: 650 mg Benzocaine/Menthol (Cepacol Sore Throat) 1 lester MT Q2H PRN PRN Reason: Sore Throat Last Admin: 07/19/18 19:39 Dose: 1 lester Dextrose/Sodium Chloride (Dextrose 5%/0.9% Ns 1000 Ml) 1,000 mls @ 125 mls/hr IV .Q8H [facility] Last Admin: 07/20/18 09:28 Dose: 125 mls/hr Meropenem (Merrem Iv 1 Gm Premix) 1 gm in 50 mls @ 100 mls/hr IVPB Q12 [facility]; Protocol Stop: 07/20/18 22:29 Non-Formulary Medication (Dalfampridine [Ampyra]) 10 mg PO BID [facility] Last Admin: 07/20/18 09:26 Dose: Not Given Ondansetron HCl (Zofran Inj) 4 mg IVP Q8H PRN PRN Reason: Nausea/Vomiting Last Admin: 07/20/18 05:47 Dose: 4 mg Oxybutynin Chloride (Ditropan Tab) 10 mg PO QID [facility] Last Admin: 07/20/18 14:01 Dose: Not Given Pantoprazole Sodium (Protonix Inj) 40 mg IVP DAILY [facility] Last Admin: 07/20/18 09:29 Dose: 40 mg Polyethylene Glycol (Miralax) 17 gm PO BID [facility] Last Admin: 07/20/18 09:26 Dose: Not Given - Labs Labs: 07/20/18 06:30 07/20/18 06:30 PT 12.8 SECONDS (9.4-12.5) H 07/17/18 13:51 INR 1.15 07/17/18 13:51 APTT 27.8 Seconds (26.9-38.3) 07/17/18 13:51 - Additional Findings Additional findings: - Constitutional Appears: Well, Non-toxic - Head Exam Head Exam: ATRAUMATIC, NORMAL INSPECTION, NORMOCEPHALIC - Eye Exam Eye Exam: EOMI, Normal appearance, PERRL Pupil Exam: NORMAL ACCOMODATION, PERRL - ENT Exam ENT Exam: Mucous Membranes Moist - Respiratory Exam Respiratory Exam: Clear to Ausculation Bilateral, NORMAL BREATHING PATTERN - Cardiovascular Exam Cardiovascular Exam: REGULAR RHYTHM, +S1, +S2 - GI/Abdominal Exam GI & Abdominal Exam: Soft, BM nomal, no tnderness/rebound/rigidity - Extremities Exam Extremities Exam: Full ROM, Normal Capillary Refill, Normal Inspection. absent: Joint Swelling, Pedal Edema - Back Exam Back Exam: NORMAL INSPECTION - Neurological Exam Neurological Exam: Alert, Awake, CN II-XII Intact, Oriented x3 - Psychiatric Exam Psychiatric exam: Normal Affect, Normal Mood - Skin Skin Exam: Dry, Intact, Normal Color, Warm Assessment and Plan - Assessment and Plan (Free Text) Assessment: 68 y/o female with PMH of MS presents with abdominal pain, nausea, NB vomiting. Admitted to med/surg for further work up Plan: Abdominal pain/ Nausea/vomiting: -Per GI: no plan for endoscopic evaluation at present. will follow clinical course -CT A/P: dilated small bowel. liquid stool noted throughout small intestine and mix of hard stool and liquid noted in colon -abd XR 07/19: several dilated small bowel loops in upper abdomen -NGT removed -serial abdominal xray -continue zofran, protonix 40 IV -NPO -IVF: D5/NS @ 125 cc/hr -continue tylenol prn for fever -GI following DR Pacheco. Possible EGD/colonscopy on Friday -surgery on board, Dr Sanabria UTI: -Ucx: + ESBL -continue Merrem Constipation: -water enema prn h/o multiple sclerosis: -continue home med ampyra -patient uses wheelchair/walker at home PPX: DVT: SCD GI: protonix PT/OT Case reviewed and plan discussed with attending Dr Orion Robles, DO <Shelly Sears R - Last Filed: 07/20/18 17:17> Objective - Vital Signs/Intake and Output Vital Signs (last 24 hours): Temp Pulse Resp BP Pulse Ox 99 F 118 H 18 130/70 94 L 07/20/18 17:11 07/20/18 17:11 07/20/18 17:11 07/20/18 17:11 07/20/18 17:11 Intake and Output: 07/20/18 07/20/18 06:59 18:59 Intake Total 0 Output Total 800 Balance -800 - Medications Medications: Current Medications Acetaminophen (Tylenol 325mg Tab) 650 mg PO Q6H PRN PRN Reason: Fever >100.4 F Acetaminophen (Tylenol 325 Mg Supp) 650 mg RC Q6H PRN PRN Reason: Fever >100.4 F Last Admin: 07/18/18 17:38 Dose: 650 mg Benzocaine/Menthol (Cepacol Sore Throat) 1 lester MT Q2H PRN PRN Reason: Sore Throat Last Admin: 07/19/18 19:39 Dose: 1 lester Dextrose/Sodium Chloride (Dextrose 5%/0.9% Ns 1000 Ml) 1,000 mls @ 125 mls/hr IV .Q8H [facility] Last Admin: 07/20/18 09:28 Dose: 125 mls/hr Non-Formulary Medication (Dalfampridine [Ampyra]) 10 mg PO BID [facility] Last Admin: 07/20/18 17:00 Dose: Not Given Ondansetron HCl (Zofran Inj) 4 mg IVP Q8H PRN PRN Reason: Nausea/Vomiting Last Admin: 07/20/18 05:47 Dose: 4 mg Oxybutynin Chloride (Ditropan Tab) 10 mg PO QID [facility] Last Admin: 07/20/18 17:00 Dose: Not Given Pantoprazole Sodium (Protonix Inj) 40 mg IVP DAILY [facility] Last Admin: 07/20/18 09:29 Dose: 40 mg Polyethylene Glycol (Miralax) 17 gm PO BID [facility] Last Admin: 07/20/18 17:00 Dose: Not Given - Labs Labs: 07/20/18 06:30 07/20/18 06:30 PT 12.8 SECONDS (9.4-12.5) H 07/17/18 13:51 INR 1.15 07/17/18 13:51 APTT 27.8 Seconds (26.9-38.3) 07/17/18 13:51 Attending/Attestation - Attestation I have personally seen and examined this patient.: Yes I have fully participated in the care of the patient.: Yes I have reviewed all pertinent clinical information, including history, physical exam and plan: Yes Notes (Text): Patient seen and examined by me with resident at approximately 11AM on 07/19/18 in the emergency room. Case including HPI, physical exam, and assessment and plan discussed with resident. Agree with above with following additions/corrections. Patient is a 68 year old female with history of multiple sclerosis that presented to the emergency room with nausea, vomiting, and abdominal pain. Patient states that she is feeling a little better. States she had some nausea earlier but improved with medication. Patient has some abdominal "cramping." Patient denies current nausea or vomiting. Patient denies bowel movements but per nurse, patient had 2 bowel movements yesterday. No dysuria or burning with urination. No headaches or dizziness. No fevers or chills. No chest pain or shortness of breath. Physical exam: General: Awake and alert lying in bed in no acute distress HEENT: Normocephalic, atraumatic. Extraocular muscles intact. Pupils equal and reactive, no scleral icterus. Oropharynx is pink. Positive dry mucous membranes. Neck is supple. Cardiovascular: Normal rhythm. Normal S1 and S2. No murmurs, rubs, or gallops appreciated Pulmonary: Normal respiratory effort. No rhonchi, rales, or wheezing appreciated. Gastrointestinal: Soft, nondistended. Positive right lower abdominal tenderness. Positive bowel sounds all 4 quadrants. No guarding. Musculoskeletal: Moves all extremities. No calf tenderness. No edema appreciated. Central nervous system: AAO X 3. Dermatologic: Skin warm and dry. Assessment and plan: Patient is a 68 year old female with history of multiple sclerosis that presented to the emergency room with nausea, vomiting, and abdominal pain. 1. Ileus. Enteritis. Surgical team recommendations appreciated. NGT removed this AM. Continue with NPO. No EGD for now per GI team. CT abd/pelvis per radiologist showed multiple dilated fluid filled loops of small bowel are seen, there is also some fluid in the cecum, there is no transition point to suggest obstruction, findings most consistent with ileus, this could be secondary to enteritis. Afebrile. No leukocytosis. Abdominal xray today per radiologist showed decreased size and number of dilated small bowel loops, no evidence of free air. 2. Nausea and vomiting. Continue Zofran as needed. Continue IV fluids, changed to D5 secondary to hypoglycemia. Continue NPO 3. Fecal retention. S/P enema and dulcolax suppository. Had 2 bowel movements yesterday. Continue to monitor. 4. ESBL UTI. ID recommendations appreciated. Patient asymptomatic. No antibiotic treatment indicated per ID. Continue with contact precautions 5. Multiple Sclerosis. Continue home Ampyra. 6. Overactive bladder. Continue home oxybutynin 7. Patient is a full code. Case was discussed in detail with the patient regarding current diagnosis, study results, and treatment plan. All questions answered.
--- NOTE | 2018-07-20 21:08 | PN ---
DATE: 07/20/2018 SUBJECTIVE: The patient is in bed, seen earlier today. No fevers and no chills. PHYSICAL EXAMINATION VITAL SIGNS: On exam temperature is 99, blood pressure is , respiratory rate of 18 and heart rate of 120. HEENT: Unremarkable. NECK: Supple. LUNGS: Decreased breath sounds. HEART: Normal S1 and S2. ABDOMEN: Soft and nontender. LABORATORY DATA: Laboratory examination reveals a white count of 6.9 and hemoglobin of 9. Chemistries are noted. Urinalysis is noted. Abdominal x-rays are noted, decreased in size and number of dilated small bowel loops. No evidence of free air. Dr. Lewis's note is reviewed. ASSESSMENT: This is a 68-year-old female with: 1. Ileus. 2. Asymptomatic bacteriuria with extended-spectrum beta-lactamases Escherichia coli with no indication for antibiotics. PLAN: He has ileus without any leukocytosis or fevers and urinary tract infections, asymptomatic bacteriuria and no antibiotics necessary. We will follow off of antibiotics. Asymptomatic bacteriuria does not require treatment. Kenn Goodrich MD
[2018-07-20] MEDS: Benzocaine/Menthol (Cepacol) Lozenge MT PRN (21:56)
[2018-07-20] MEDS ORDERED: Meropenem IV 1 gm in NS 1 GM/50 ML BAG IVPB SCH (22:00)
[2018-07-21] MEDS: Benzocaine/Menthol (Cepacol) Lozenge MT PRN ×3 (00:50→09:51)
[2018-07-21] MEDS: Dextrose 5%/0.9% NS 1,000 ML IV SCH ×4 (01:15→17:34)
[2018-07-21] MEDS ORDERED: Barium Sulfate Susp 2.1% w/v, 2.0% w/w 450 mL Bottle PO ONE (08:12)
--- NOTE | 2018-07-21 08:39 | CP.PCM.PN ---
Subjective - Date & Time of Evaluation Date of Evaluation: 07/21/18 Time of Evaluation: 08:30 - Subjective Subjective: General Surgery Pt seen and examined. Denies abd pain, nausea, emesis, fever. + flatus. No BM. Getting CT scan today ordered by GI Objective - Vital Signs/Intake and Output Vital Signs (last 24 hours): Temp Pulse Resp BP Pulse Ox 98.5 F 91 H 18 130/79 94 L 07/21/18 08:18 07/21/18 08:18 07/21/18 08:18 07/21/18 08:18 07/21/18 08:18 Intake and Output: 07/21/18 07/21/18 06:59 18:59 Intake Total 1560 Output Total 850 Balance 710 - Medications Medications: Current Medications Acetaminophen (Tylenol 325mg Tab) 650 mg PO Q6H PRN PRN Reason: Fever >100.4 F Acetaminophen (Tylenol 325 Mg Supp) 650 mg RC Q6H PRN PRN Reason: Fever >100.4 F Last Admin: 07/18/18 17:38 Dose: 650 mg Benzocaine/Menthol (Cepacol Sore Throat) 1 lester MT Q2H PRN PRN Reason: Sore Throat Last Admin: 07/21/18 05:39 Dose: 1 lester Dextrose/Sodium Chloride (Dextrose 5%/0.9% Ns 1000 Ml) 1,000 mls @ 125 mls/hr IV .Q8H [facility] Last Admin: 07/21/18 04:00 Dose: 125 mls/hr Non-Formulary Medication (Dalfampridine [Ampyra]) 10 mg PO BID [facility] Last Admin: 07/20/18 17:00 Dose: Not Given Ondansetron HCl (Zofran Inj) 4 mg IVP Q8H PRN PRN Reason: Nausea/Vomiting Last Admin: 07/20/18 05:47 Dose: 4 mg Oxybutynin Chloride (Ditropan Tab) 10 mg PO QID [facility] Last Admin: 07/20/18 23:03 Dose: Not Given Pantoprazole Sodium (Protonix Inj) 40 mg IVP DAILY [facility] Last Admin: 07/20/18 09:29 Dose: 40 mg Polyethylene Glycol (Miralax) 17 gm PO BID [facility] Last Admin: 07/20/18 17:00 Dose: Not Given - Labs Labs: 07/20/18 06:30 07/20/18 06:30 PT 12.8 SECONDS (9.4-12.5) H 07/17/18 13:51 INR 1.15 07/17/18 13:51 APTT 27.8 Seconds (26.9-38.3) 07/17/18 13:51 - Constitutional Appears: Non-toxic, No Acute Distress - Head Exam Head Exam: ATRAUMATIC, NORMOCEPHALIC - Eye Exam Eye Exam: EOMI. absent: Scleral icterus - Respiratory Exam Respiratory Exam: NORMAL BREATHING PATTERN. absent: Respiratory Distress - GI/Abdominal Exam GI & Abdominal Exam: Distended (mild), Soft. absent: Firm, Guarding, Rigid, Tenderness, Rebound - Extremities Exam Extremities Exam: Normal Capillary Refill. 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 Elly Luciano PGY4
[2018-07-21 09:48] LABS: BASO # 0.03 K/mm3 (0.0-2.0); BASO % 0.4 % (0.0-3.0); EOS # 0.2 (0.0-0.7); HEMOGLOBIN 11.2 g/dL (12.0-16.0); LYMPH # 2.3 (1.2-3.4); MEAN CELL VOLUME 91.8 fl (80.0-105.0); MEAN CORPUSCULAR HEMOGLOBIN 28.7 pg (25.0-35.0); MEAN CORPUSCULAR HGB CONC 31.3 g/dl (31.0-37.0); MONO # 0.8 (0.1-0.6); MONO % 10.1 % (1.0-6.0); RBC 3.9 10^6/uL (3.5-6.1); RED CELL DISTRIBUTION WIDTH 15.1 % (11.5-14.5)
[2018-07-21] MEDS: DALFAMPRIDINE 10 MG PO SCH ×2 (09:49→17:00)
[2018-07-21] MEDS: POLYETHYLENE GLYCOL 3350 17 GM/Dose PACKET PO SCH ×2 (09:52→17:00)
[2018-07-21 09:55] LABS: ALB/GLOB RATIO 1.3 (1.1-1.8); ALBUMIN 3.3 g/dL (3.0-4.8); ALT/SGPT 27 U/L (7-56); AST/SGOT 18 U/L (14-36); BLOOD UREA NITROGEN 7 mg/dL (7-21); CALCIUM 8.8 mg/dL (8.4-10.5); GFR NON-AFRICAN AMERICAN > 60
--- NOTE | 2018-07-21 13:01 | CP.PCM.PN ---
<Sherri Restrepola - Last Filed: 07/21/18 15:25> Subjective - Date & Time of Evaluation Date of Evaluation: 07/21/18 Time of Evaluation: 09:45 - Subjective Subjective: IM progress note for the Hospitalist service. Patient is seating comfortably on the chair. Patient states she's feeling much better. Denies nausea, vomiting or diarrhea Admits to flatus, denies bowel movement. No abdominal pain. No fever or chills. Patient is drinking contrast pending CT ordered by GI. Objective - Vital Signs/Intake and Output Vital Signs (last 24 hours): Temp Pulse Resp BP Pulse Ox 98.5 F 91 H 18 130/79 94 L 07/21/18 08:18 07/21/18 08:18 07/21/18 08:18 07/21/18 08:18 07/21/18 08:18 Intake and Output: 07/21/18 07/21/18 06:59 18:59 Intake Total 1560 Output Total 850 Balance 710 - Medications Medications: Current Medications Acetaminophen (Tylenol 325mg Tab) 650 mg PO Q6H PRN PRN Reason: Fever >100.4 F Acetaminophen (Tylenol 325 Mg Supp) 650 mg RC Q6H PRN PRN Reason: Fever >100.4 F Last Admin: 07/18/18 17:38 Dose: 650 mg Benzocaine/Menthol (Cepacol Sore Throat) 1 lester MT Q2H PRN PRN Reason: Sore Throat Last Admin: 07/21/18 09:51 Dose: 1 lester Dextrose/Sodium Chloride (Dextrose 5%/0.9% Ns 1000 Ml) 1,000 mls @ 125 mls/hr IV .Q8H [facility] Last Admin: 07/21/18 09:52 Dose: 125 mls/hr Non-Formulary Medication (Dalfampridine [Ampyra]) 10 mg PO BID [facility] Last Admin: 07/21/18 09:49 Dose: Not Given Ondansetron HCl (Zofran Inj) 4 mg IVP Q8H PRN PRN Reason: Nausea/Vomiting Last Admin: 07/20/18 05:47 Dose: 4 mg Oxybutynin Chloride (Ditropan Tab) 10 mg PO QID [facility] Last Admin: 07/21/18 09:51 Dose: Not Given Pantoprazole Sodium (Protonix Inj) 40 mg IVP DAILY [facility] Last Admin: 07/21/18 09:51 Dose: 40 mg Polyethylene Glycol (Miralax) 17 gm PO BID [facility] Last Admin: 07/21/18 09:52 Dose: Not Given - Labs Labs: 07/21/18 09:00 07/21/18 09:00 PT 12.8 SECONDS (9.4-12.5) H 07/17/18 13:51 INR 1.15 07/17/18 13:51 APTT 27.8 Seconds (26.9-38.3) 07/17/18 13:51 - Constitutional Appears: No Acute Distress - Head Exam Head Exam: ATRAUMATIC, NORMAL INSPECTION, NORMOCEPHALIC - Eye Exam Eye Exam: EOMI, Normal appearance, PERRL. absent: Scleral icterus Pupil Exam: NORMAL ACCOMODATION - ENT Exam ENT Exam: Mucous Membranes Moist - Neck Exam Neck Exam: Normal Inspection - Respiratory Exam Respiratory Exam: Clear to Ausculation Bilateral, NORMAL BREATHING PATTERN. absent: Rales, Rhonchi, Wheezes - Cardiovascular Exam Cardiovascular Exam: REGULAR RHYTHM, +S1, +S2 - GI/Abdominal Exam GI & Abdominal Exam: Soft, Normal Bowel Sounds. absent: Distended, Firm, Guarding, Rigid, Tenderness - Extremities Exam Extremities Exam: Normal Inspection. absent: Pedal Edema - Back Exam Back Exam: NORMAL INSPECTION - Neurological Exam Neurological Exam: Alert, Awake, Oriented x3 - Psychiatric Exam Psychiatric exam: Normal Affect, Normal Mood - Skin Skin Exam: Dry, Normal Color, Warm Assessment and Plan - Assessment and Plan (Free Text) Assessment: Patient is a 68 y/o with PMHx of MS presenting with intractable nausea, vom iting, and abdominal pain. Plan: 1)Nausea and vomiting resolved - CT with dilated bowel loop with no transition point and possibly Enteritis /ileitis- - S/P NGT decompression - Repeat abdominal x-ray with improvement - Patient is to get CT with po contrast per GI - EGD is on hold - Surgery is also following - Tylenol prn for fever - Will continue with zofran prn for n/v - On D5 NS hydration at 125 ml/hr, start diet if cleared by GI 2)Constipation with fecal impaction - s/p desimpaction - increase MiraLAX to bid 3)ESBL UTI- asymptomatic per Gi no antibiotic at this time. 4)Multiple sclerosis- Continue with ampyra from home 5)h/o overactive bladder- continue with oxybutynin 6)Transient hypoglycemia- due to NPO status, resolved 7)Hypophosphatemia- will replete and continue to monitor 8)DVT/GI prophylaxis: continue with compressive mechanical devices, on protonix po for gi prophylaxis. 9)Disposition: Pending gi recommendations for discharge Patient seen examined and case discussed with Dr. Sears. <Shelly Sears R - Last Filed: 07/21/18 21:51> Objective - Vital Signs/Intake and Output Vital Signs (last 24 hours): Temp Pulse Resp BP Pulse Ox 98.1 F 97 H 20 150/84 97 07/21/18 16:28 07/21/18 16:53 07/21/18 16:28 07/21/18 16:53 07/21/18 16:28 Intake and Output: 07/21/18 07/22/18 18:59 06:59 Intake Total 1750 Balance 1750 - Medications Medications: Current Medications Acetaminophen (Tylenol 325mg Tab) 650 mg PO Q6H PRN PRN Reason: Fever >100.4 F Acetaminophen (Tylenol 325 Mg Supp) 650 mg RC Q6H PRN PRN Reason: Fever >100.4 F Last Admin: 07/18/18 17:38 Dose: 650 mg Benzocaine/Menthol (Cepacol Sore Throat) 1 lester MT Q2H PRN PRN Reason: Sore Throat Last Admin: 07/21/18 09:51 Dose: 1 lester Dextrose/Sodium Chloride (Dextrose 5%/0.9% Ns 1000 Ml) 1,000 mls @ 125 mls/hr IV .Q8H [facility] Last Admin: 07/21/18 17:34 Dose: Not Given Non-Formulary Medication (Dalfampridine [Ampyra]) 10 mg PO BID [facility] Last Admin: 07/21/18 17:00 Dose: Not Given Ondansetron HCl (Zofran Inj) 4 mg IVP Q8H PRN PRN Reason: Nausea/Vomiting Last Admin: 07/21/18 18:54 Dose: 4 mg Oxybutynin Chloride (Ditropan Tab) 10 mg PO QID [facility] Last Admin: 07/21/18 21:23 Dose: 10 mg Pantoprazole Sodium (Protonix Inj) 40 mg IVP DAILY [facility] Last Admin: 07/21/18 09:51 Dose: 40 mg Polyethylene Glycol (Miralax) 17 gm PO BID [facility] Last Admin: 07/21/18 17:00 Dose: Not Given - Labs Labs: 07/21/18 09:00 07/21/18 09:00 PT 12.8 SECONDS (9.4-12.5) H 07/17/18 13:51 INR 1.15 07/17/18 13:51 APTT 27.8 Seconds (26.9-38.3) 07/17/18 13:51 Attending/Attestation - Attestation I have personally seen and examined this patient.: Yes I have fully participated in the care of the patient.: Yes I have reviewed all pertinent clinical information, including history, physical exam and plan: Yes Notes (Text): Patient seen and examined by me with resident at approximately 10:20AM on 07/21/18. Case including HPI, physical exam, and assessment and plan discussed with resident. Agree with above with following additions/corrections. Patient states she is feeling better. Patient denies any abdominal pain. No nausea or vomiting. Patient is tolerating PO contrast. Patient denies bowel movement but states she is having flatus. Patient denies dysuria or burning with urination. No headaches or dizziness. No fevers or chills. No chest pain or shortness of breath. Physical exam: General: Awake and alert lying in bed in no acute distress HEENT: Normocephalic, atraumatic. Extraocular muscles intact. Pupils equal and reactive, no scleral icterus. Oropharynx is pink. Positive dry mucous membranes. Neck is supple. Cardiovascular: Normal rhythm. Normal S1 and S2. No murmurs, rubs, or gallops appreciated Pulmonary: Normal respiratory effort. No rhonchi, rales, or wheezing appreciated. Gastrointestinal: Soft, mild distention. Nontender. Positive bowel sounds all 4 quadrants. No guarding. Musculoskeletal: Moves all extremities. No calf tenderness. No edema appreciated. Central nervous system: AAO X 3. Dermatologic: Skin warm and dry. Assessment and plan: Patient is a 68 year old female with history of multiple sclerosis that presented to the emergency room with nausea, vomiting, and abdominal pain. 1. Ileus. Enteritis. NGT removed yesterday. Patient for repeat CT with contrast today. Tolerating oral contrast. No EGD for now per GI team. Surgical and GI recommendations appreciated. 2. Nausea and vomiting. Resolved for now. Continue Zofran as needed. Continue IV fluids. 3. Fecal retention. S/P 2 bowel movements 07/19/18. Continue miralax. Continue to monitor. 4. ESBL UTI. ID recommendations appreciated. Patient asymptomatic. No antibiotic treatment indicated per ID.Continue contact isolation. 5. Multiple Scelerosis. Continue Ampyra. 6. Overactive bladder. Continue oxybutynin 7. Patient is a full code. Case was discussed in detail with the patient regarding current diagnosis, study results, and treatment plan. All questions answered.
[2018-07-21] MEDS ORDERED: Potassium Phosphate 15 MMOLE in Dextrose 5% In Water 250 ML IVPB ONE (13:11)
--- NOTE | 2018-07-21 13:45 | CT ---
Date of service: 07/21/2018 PROCEDURE: CT Abdomen and Pelvis without intravenous contrast HISTORY: bowel obstruction re-evaluation COMPARISON: 07/17/2018 TECHNIQUE: Without contrast.. Contrast dose: Radiation dose: Total exam DLP = 391.16 mGy-cm. This CT exam was performed using one or more of the following dose reduction techniques: Automated exposure control, adjustment of the mA and/or kV according to patient size, and/or use of iterative reconstruction technique. FINDINGS: LOWER THORAX: Small right effusion LIVER: Unremarkable. No gross lesion or ductal dilatation. Multiple hepatic cysts. GALLBLADDER AND BILE DUCTS: Unremarkable. There is excreted contrast or sludge in the gallbladder. PANCREAS: Unremarkable. No gross lesion or ductal dilatation. SPLEEN: Unremarkable. ADRENALS: Unremarkable. No mass. KIDNEYS AND URETERS: Unremarkable. No hydronephrosis. No solid mass. VASCULATURE: Unremarkable. No aortic aneurysm. No aortic atherosclerotic calcification or mural plaque present. BOWEL: There is no significant change in the pattern of diffusely dilated small bowel loops. There is also dilatation of the cecum which is filled with fluid. There is an annular lesion at the junction of the cecum and ascending colon which is producing partial obstruction. Below this level this cecum is dilated and filled with fluid. Above this level the colon is essentially collapsed and contains more dense contrast and fecal material. Colonoscopy correlation is recommended The finding is best visualized on image 111 series 3 as well as coronal image 41 APPENDIX: Unremarkable. Normal appendix. PERITONEUM: Unremarkable. No free fluid. No free air. LYMPH NODES: Unremarkable. No enlarged lymph nodes. BLADDER: Unremarkable. REPRODUCTIVE: Unremarkable. BONES: No acute fracture. OTHER FINDINGS: None. IMPRESSION: There is no significant change in the pattern of diffusely dilated small bowel loops. There is an annular lesion at the junction of the cecum and ascending colon which is producing partial obstruction. Below this level this cecum is dilated and filled with fluid. Above this level the colon is essentially collapsed and contains more dense contrast and fecal material.
--- NOTE | 2018-07-21 14:47 | CP.PCM.PN ---
<Lyn Lewis - Last Filed: 07/21/18 14:39> Subjective - Date & Time of Evaluation Date of Evaluation: 07/21/18 Time of Evaluation: 14:39 - Subjective Subjective: Gastroenterology Fellow/PGY6 Progress Note Patient denies bowel movement in over 48 hours. Denies abdominal pain. Remains NPO. A 12-point review of systems negative except for as above. Objective - Vital Signs/Intake and Output Vital Signs (last 24 hours): Temp Pulse Resp BP Pulse Ox 98.5 F 91 H 18 130/79 94 L 07/21/18 08:18 07/21/18 08:18 07/21/18 08:18 07/21/18 08:18 07/21/18 08:18 Intake and Output: 07/21/18 07/21/18 06:59 18:59 Intake Total 1560 Output Total 850 Balance 710 - Medications Medications: Current Medications Acetaminophen (Tylenol 325mg Tab) 650 mg PO Q6H PRN PRN Reason: Fever >100.4 F Acetaminophen (Tylenol 325 Mg Supp) 650 mg RC Q6H PRN PRN Reason: Fever >100.4 F Last Admin: 07/18/18 17:38 Dose: 650 mg Benzocaine/Menthol (Cepacol Sore Throat) 1 lester MT Q2H PRN PRN Reason: Sore Throat Last Admin: 07/21/18 09:51 Dose: 1 lester Dextrose/Sodium Chloride (Dextrose 5%/0.9% Ns 1000 Ml) 1,000 mls @ 125 mls/hr IV .Q8H [facility] Last Admin: 07/21/18 09:52 Dose: 125 mls/hr Potassium Phosphate 15 mmole/ (Dextrose) 255 mls @ 42.5 mls/hr IVPB ONCE ONE Stop: 07/21/18 19:10 Last Admin: 07/21/18 13:46 Dose: 42.5 mls/hr Non-Formulary Medication (Dalfampridine [Ampyra]) 10 mg PO BID [facility] Last Admin: 07/21/18 09:49 Dose: Not Given Ondansetron HCl (Zofran Inj) 4 mg IVP Q8H PRN PRN Reason: Nausea/Vomiting Last Admin: 07/20/18 05:47 Dose: 4 mg Oxybutynin Chloride (Ditropan Tab) 10 mg PO QID [facility] Last Admin: 07/21/18 13:31 Dose: Not Given Pantoprazole Sodium (Protonix Inj) 40 mg IVP DAILY [facility] Last Admin: 07/21/18 09:51 Dose: 40 mg Polyethylene Glycol (Miralax) 17 gm PO BID [facility] Last Admin: 07/21/18 09:52 Dose: Not Given - Labs Labs: 07/21/18 09:00 07/21/18 09:00 PT 12.8 SECONDS (9.4-12.5) H 07/17/18 13:51 INR 1.15 07/17/18 13:51 APTT 27.8 Seconds (26.9-38.3) 07/17/18 13:51 - Constitutional Appears: Non-toxic, No Acute Distress - Head Exam Head Exam: ATRAUMATIC, NORMOCEPHALIC - Eye Exam Eye Exam: EOMI, PERRL. absent: Scleral icterus Pupil Exam: PERRL. absent: Miosis, Mydriatic - ENT Exam ENT Exam: Mucous Membranes Moist, Normal Oropharynx - Neck Exam Neck Exam: Full ROM, Normal Inspection - Cardiovascular Exam Cardiovascular Exam: RRR, +S1, +S2. absent: Gallop, Rubs - GI/Abdominal Exam GI & Abdominal Exam: Soft, Hypoactive Bowel Sounds. absent: Distended, Firm, Guarding, Rigid, Organomegaly, Rebound - Extremities Exam Extremities Exam: Normal Inspection - Neurological Exam Neurological Exam: Alert, Awake - Psychiatric Exam Psychiatric exam: Normal Affect, Normal Mood - Skin Skin Exam: Dry, Intact, Normal Color, Warm Assessment and Plan - Assessment and Plan (Free Text) Assessment: 68 year old female with PMH of Multiple Sclerosis presenting with abdominal pain, nausea, and vomiting. Active treatment of partial bowel obstruction at junction of cecum and ascending colon confirmed on CT A/P PO contrast. No prior EGD or colonoscopy. Plan: -high risk for aspiration and/or bowel perforation for consideration of bowel preparation for colonoscopy in setting of retained stool throughout colon with unchanged dilated caliber of bowel loops -will discuss findings with Dr. Pacheco for final recommendation on colonoscopy -discussed with surgery team, follow up recommendations on indication for surgical intervention -NPO -supportive care -further recommendations to follow <Lon Pacheco V - Last Filed: 07/21/18 19:35> Objective - Vital Signs/Intake and Output Vital Signs (last 24 hours): Temp Pulse Resp BP Pulse Ox 98.1 F 97 H 20 150/84 97 07/21/18 16:28 07/21/18 16:53 07/21/18 16:28 07/21/18 16:53 07/21/18 16:28 Intake and Output: 07/21/18 07/22/18 18:59 06:59 Intake Total 1750 Balance 1750 - Medications Medications: Current Medications Acetaminophen (Tylenol 325mg Tab) 650 mg PO Q6H PRN PRN Reason: Fever >100.4 F Acetaminophen (Tylenol 325 Mg Supp) 650 mg RC Q6H PRN PRN Reason: Fever >100.4 F Last Admin: 07/18/18 17:38 Dose: 650 mg Benzocaine/Menthol (Cepacol Sore Throat) 1 lester MT Q2H PRN PRN Reason: Sore Throat Last Admin: 07/21/18 09:51 Dose: 1 lester Dextrose/Sodium Chloride (Dextrose 5%/0.9% Ns 1000 Ml) 1,000 mls @ 125 mls/hr IV .Q8H [facility] Last Admin: 07/21/18 17:34 Dose: Not Given Non-Formulary Medication (Dalfampridine [Ampyra]) 10 mg PO BID [facility] Last Admin: 07/21/18 17:00 Dose: Not Given Ondansetron HCl (Zofran Inj) 4 mg IVP Q8H PRN PRN Reason: Nausea/Vomiting Last Admin: 07/21/18 18:54 Dose: 4 mg Oxybutynin Chloride (Ditropan Tab) 10 mg PO QID [facility] Last Admin: 07/21/18 17:00 Dose: Not Given Pantoprazole Sodium (Protonix Inj) 40 mg IVP DAILY [facility] Last Admin: 07/21/18 09:51 Dose: 40 mg Polyethylene Glycol (Miralax) 17 gm PO BID [facility] Last Admin: 07/21/18 17:00 Dose: Not Given - Labs Labs: 07/21/18 09:00 07/21/18 09:00 PT 12.8 SECONDS (9.4-12.5) H 07/17/18 13:51 INR 1.15 07/17/18 13:51 APTT 27.8 Seconds (26.9-38.3) 07/17/18 13:51 Attending/Attestation - Attestation I have personally seen and examined this patient.: Yes I have fully participated in the care of the patient.: Yes I have reviewed all pertinent clinical information, including history, physical exam and plan: Yes Notes (Text): This is an addendum to the GI progress report dictated by the fellow. The patient was seen and evaluated along with the fellow. The CT scan was reviewed. Obstructing lesion in the cecum ascending colon area. Throat small bowel has significant distention. Surgical interventions versus colonoscopy evaluation will be discussed with the surgical team. No bowel preparation ordered in view of persistent obstruction with a significant distention of the small bowel loops 07/21/18 19:33
--- NOTE | 2018-07-22 00:59 | PN ---
DATE: 07/21/2018 SUBJECTIVE: The patient is in bed, in no acute distress, nontoxic. PHYSICAL EXAMINATION: VITAL SIGNS: Temperature is 98, blood pressure is 150/80, respiratory rate of 20. HEENT: Unremarkable. NECK: Supple. LUNGS: Have decreased breath sounds. HEART: Normal S1, S2. ABDOMEN: Soft. LABORATORY DATA: Reveals a white count of 8000. Chemistries are noted. Microbiology reveals E. coli in the urine culture which is ESBL E. coli. Blood cultures are negative. Review of orders reveals the patient to be off of antibiotics. ASSESSMENT AND PLAN: This is a 68-year-old female with, 1. Ileus. 2. Asymptomatic bacteriuria with extended-spectrum beta-lactamase Escherichia coli. Currently, no indication for any antibiotics either for the ileus or the asymptomatic bacteriuria. The patient had another CAT scan of the abdomen and pelvis today which reveals there is an annular lesion at junction of the cecum and ascending colon producing partial obstruction. We will follow with you. Kenn Goodrich MD
[2018-07-22] MEDS ORDERED: DiphenhydrAMINE 50 mg/ml Inj IVP STA (01:42)
[2018-07-22 07:01] LABS: BASO # 0.03 K/mm3 (0.0-2.0); BASO % 0.5 % (0.0-3.0); EOS # 0.2 (0.0-0.7); EOS % 2.9 % (1.5-5.0); HEMOGLOBIN 10.4 g/dL (12.0-16.0); LYMPH # 1.9 (1.2-3.4); LYMPH % 33.3 % (22.0-35.0); MEAN CELL VOLUME 90.5 fl (80.0-105.0); MEAN CORPUSCULAR HEMOGLOBIN 28.3 pg (25.0-35.0); MEAN CORPUSCULAR HGB CONC 31.3 g/dl (31.0-37.0); MEAN PLATELET VOLUME 9.3 fl (7.0-11.0); MONO # 0.7 (0.1-0.6); MONO % 12.9 % (1.0-6.0); RBC 3.67 10^6/uL (3.5-6.1); RED CELL DISTRIBUTION WIDTH 15.1 % (11.5-14.5); WHITE BLOOD COUNT 5.6 10^3/uL (4.5-11.0)
[2018-07-22 07:02] LABS: INR 1.39; PROTHROMBIN TIME 15.7 SECONDS (9.4-12.5)
[2018-07-22 07:16] LABS: ALB/GLOB RATIO 1.2 (1.1-1.8); ALBUMIN 2.8 g/dL (3.0-4.8); ALT/SGPT 32 U/L (7-56); AST/SGOT 27 U/L (14-36); BLOOD UREA NITROGEN < 2 mg/dL (7-21); CALCIUM 8.2 mg/dL (8.4-10.5); GFR NON-AFRICAN AMERICAN > 60
[2018-07-22] MEDS ORDERED: Potassium Chloride 40 mEq/30 ml LIQ UD PO STA (07:38)
[2018-07-22] MEDS ORDERED: Magnesium Sulfate 1 gm in D5W 1 GM/100 ML BAG IVPB ONE (07:38)
[2018-07-22] MEDS ORDERED: Potassium Phosphate 3 mmol/ml Inj IV ONE (07:40)
[2018-07-22] MEDS ORDERED: Potassium Phosphate 15 MMOLE in Sodium Chloride 0.9% 250 ML IVPB ONE (07:45)
[2018-07-22] MEDS: POLYETHYLENE GLYCOL 3350 17 GM/Dose PACKET PO SCH ×2 (09:37→18:41)
[2018-07-22] MEDS: DALFAMPRIDINE 10 MG PO SCH ×2 (09:37→18:40)
--- NOTE | 2018-07-22 10:40 | CP.PCM.PN ---
Subjective - Date & Time of Evaluation Date of Evaluation: 07/22/18 Time of Evaluation: 09:35 - Subjective Subjective: General Surgery Pt seen and examined. Denies abd pain, nausea, emesis, fever. + flatus. No BM. Possible colonoscopy today for annular mass seen on CT Objective - Vital Signs/Intake and Output Vital Signs (last 24 hours): Temp Pulse Resp BP Pulse Ox 97.9 F 104 H 20 144/82 96 07/22/18 06:00 07/22/18 06:00 07/22/18 06:00 07/22/18 06:00 07/22/18 06:00 Intake and Output: 07/22/18 07/22/18 06:59 18:59 Output Total 910 Balance -910 - Medications Medications: Current Medications Acetaminophen (Tylenol 325mg Tab) 650 mg PO Q6H PRN PRN Reason: Fever >100.4 F Acetaminophen (Tylenol 325 Mg Supp) 650 mg RC Q6H PRN PRN Reason: Fever >100.4 F Last Admin: 07/18/18 17:38 Dose: 650 mg Benzocaine/Menthol (Cepacol Sore Throat) 1 lester MT Q2H PRN PRN Reason: Sore Throat Last Admin: 07/21/18 09:51 Dose: 1 lester Dextrose/Sodium Chloride (Dextrose 5%/0.9% Ns 1000 Ml) 1,000 mls @ 125 mls/hr IV .Q8H [facility] Last Admin: 07/21/18 17:34 Dose: Not Given Potassium Phosphate 15 mmole/ (Sodium Chloride) 255 mls @ 42.5 mls/hr IVPB ONCE ONE Stop: 07/22/18 13:44 Potassium Chloride (Potassium Chloride 10 Meq/100 Ml) 10 meq in 100 mls @ 100 mls/hr IVPB Q2H [facility] Stop: 07/22/18 13:44 Last Admin: 07/22/18 09:44 Dose: 100 mls/hr Non-Formulary Medication (Dalfampridine [Ampyra]) 10 mg PO BID [facility] Last Admin: 07/22/18 09:37 Dose: Not Given Ondansetron HCl (Zofran Inj) 4 mg IVP Q8H PRN PRN Reason: Nausea/Vomiting Last Admin: 07/21/18 18:54 Dose: 4 mg Oxybutynin Chloride (Ditropan Tab) 10 mg PO QID [facility] Last Admin: 07/22/18 09:37 Dose: Not Given Pantoprazole Sodium (Protonix Inj) 40 mg IVP DAILY [facility] Last Admin: 07/22/18 09:44 Dose: 40 mg Polyethylene Glycol (Miralax) 17 gm PO BID [facility] Last Admin: 07/22/18 09:37 Dose: Not Given - Labs Labs: 07/22/18 06:30 07/22/18 06:30 PT 15.7 SECONDS (9.4-12.5) H 07/22/18 06:30 INR 1.39 07/22/18 06:30 APTT 27.8 Seconds (26.9-38.3) 07/17/18 13:51 - Constitutional Appears: Non-toxic, No Acute Distress - Head Exam Head Exam: ATRAUMATIC, NORMOCEPHALIC - Eye Exam Eye Exam: EOMI. absent: Scleral icterus - Respiratory Exam Respiratory Exam: NORMAL BREATHING PATTERN. absent: Respiratory Distress - GI/Abdominal Exam GI & Abdominal Exam: Distended, Soft. absent: Firm, Guarding, Rigid, Tenderness, Rebound - Extremities Exam Extremities Exam: absent: Calf Tenderness, Pedal Edema - Back Exam Back Exam: absent: CVA tenderness (L), CVA tenderness (R) - Neurological Exam Neurological Exam: Alert, Awake, Oriented x3 - Skin Skin Exam: Dry, Warm Assessment and Plan - Assessment and Plan (Free Text) Assessment: 68F with annular mass in ascending colon on CT Plan: NPO IVF Strict I&Os Monitor for bowel movements F/U flat plate F/U GI plan, would like to get colonoscopy prior to any surgical intervention D/W Dr. Elly Luciano PGY4
[2018-07-22] MEDS: Dextrose 5%/0.9% NS 1,000 ML IV SCH ×2 (11:41→20:17)
--- NOTE | 2018-07-22 14:58 | CP.PCM.PN ---
<Darwin Robles - Last Filed: 07/22/18 19:29> Subjective - Date & Time of Evaluation Date of Evaluation: 07/22/18 Time of Evaluation: 06:00 - Subjective Subjective: Darwin Robles DO PGY1 Hospitalist Progress Note for Dr Morataya Patient seen and examined at bedside. She is awake, alert. Denies abd pain, N/V/D, CP, palpitations. No acute events overnight Objective - Vital Signs/Intake and Output Vital Signs (last 24 hours): Temp Pulse Resp BP Pulse Ox 97.9 F 104 H 20 144/82 96 07/22/18 06:00 07/22/18 06:00 07/22/18 06:00 07/22/18 06:00 07/22/18 06:00 Intake and Output: 07/22/18 07/22/18 06:59 18:59 Output Total 910 Balance -910 - Medications Medications: Current Medications Acetaminophen (Tylenol 325mg Tab) 650 mg PO Q6H PRN PRN Reason: Fever >100.4 F Acetaminophen (Tylenol 325 Mg Supp) 650 mg RC Q6H PRN PRN Reason: Fever >100.4 F Last Admin: 07/18/18 17:38 Dose: 650 mg Benzocaine/Menthol (Cepacol Sore Throat) 1 lester MT Q2H PRN PRN Reason: Sore Throat Last Admin: 07/21/18 09:51 Dose: 1 lester Dextrose/Sodium Chloride (Dextrose 5%/0.9% Ns 1000 Ml) 1,000 mls @ 125 mls/hr IV .Q8H [facility] Last Admin: 07/22/18 11:41 Dose: 125 mls/hr Dalfampridine [ Ampyra] 10 Mg ( Home Med) 10 mg PO BID [facility] Ondansetron HCl (Zofran Inj) 4 mg IVP Q8H PRN PRN Reason: Nausea/Vomiting Last Admin: 07/21/18 18:54 Dose: 4 mg Oxybutynin Chloride (Ditropan Tab) 10 mg PO QID [facility] Last Admin: 07/22/18 09:37 Dose: Not Given Pantoprazole Sodium (Protonix Inj) 40 mg IVP DAILY [facility] Last Admin: 07/22/18 09:44 Dose: 40 mg Polyethylene Glycol (Miralax) 17 gm PO BID [facility] Last Admin: 07/22/18 09:37 Dose: Not Given - Labs Labs: 07/22/18 06:30 07/22/18 06:30 PT 15.7 SECONDS (9.4-12.5) H 07/22/18 06:30 INR 1.39 07/22/18 06:30 APTT 27.8 Seconds (26.9-38.3) 07/17/18 13:51 - Constitutional Appears: Well, Non-toxic - Head Exam Head Exam: ATRAUMATIC, NORMAL INSPECTION, NORMOCEPHALIC - Eye Exam Eye Exam: EOMI, Normal appearance, PERRL Pupil Exam: NORMAL ACCOMODATION, PERRL - ENT Exam ENT Exam: Mucous Membranes Moist, Normal Exam - Neck Exam Neck Exam: Normal Inspection - Respiratory Exam Respiratory Exam: Clear to Ausculation Bilateral, NORMAL BREATHING PATTERN - Cardiovascular Exam Cardiovascular Exam: REGULAR RHYTHM, +S1, +S2. absent: JVD - GI/Abdominal Exam GI & Abdominal Exam: Soft, Normal Bowel Sounds. absent: Tenderness Assessment and Plan - Assessment and Plan (Free Text) Assessment: 68 y/o female with PMH of MS presents with abdominal pain, nausea, NB vomiting. Admitted to med/surg for work up Plan: SBO with cecal mass: -CT A/P: dilated small bowel. liquid stool noted throughout small intestine and mix of hard stool and liquid noted in colon -serial abdominal xray did not show any improvement -patient is going for right hemicolectomy as per surgery -patient is a high risk for colonscopy ass per GI -patient needs cardiac eval for risk stratification before OR -RCRI-Reviced Cardiac Risk Stratification is 1% -IVF: D5/NS @ 125 cc/hr -continue zofran, protonix -GI following DR Pacheco -surgery on board, Dr Sanabria Asymptomatic ESBL: -Ucx: + ESBL -no abx needed per ID h/o multiple sclerosis: -continue home med ampyra -patient uses wheelchair/walker at home PPX: DVT: SCD GI: protonix PT/OT Case reviewed and plan discussed with attending Dr Hood Robles, DO <Tracy Morataya - Last Filed: 07/26/18 12:53> Objective - Vital Signs/Intake and Output Vital Signs (last 24 hours): Temp Pulse Resp BP Pulse Ox 98.9 F 110 H 16 137/80 99 07/26/18 06:00 07/26/18 09:10 07/26/18 06:00 07/26/18 09:10 07/26/18 06:00 Intake and Output: 07/26/18 07/26/18 06:59 18:59 Intake Total 240 Output Total 100 Balance 140 - Medications Medications: Current Medications Acetaminophen (Tylenol 325mg Tab) 650 mg PO Q6H PRN PRN Reason: Fever >100.4 F Acetaminophen (Tylenol 325 Mg Supp) 650 mg RC Q6H PRN PRN Reason: Fever >100.4 F Last Admin: 07/18/18 17:38 Dose: 650 mg Benzocaine/Menthol (Cepacol Sore Throat) 1 lester MT Q2H PRN PRN Reason: Sore Throat Last Admin: 07/24/18 18:19 Dose: 1 lester Enoxaparin Sodium (Lovenox) 30 mg SC DAILY [facility]; Protocol Last Admin: 07/26/18 09:09 Dose: 30 mg Hydromorphone HCl (Dilaudid) 0.5 mg IVP Q4H PRN PRN Reason: Pain, severe (8-10) Last Admin: 07/26/18 05:18 Dose: 0.5 mg Hydromorphone HCl (Dilaudid) 0.5 mg IVP Q15M PRN PRN Reason: Pain, Moderate/Severe (4-10) Metronidazole (Flagyl) 500 mg in 100 mls @ 100 mls/hr IVPB Q8 [facility]; Protocol Last Admin: 07/26/18 05:06 Dose: 100 mls/hr Cefepime HCl (Maxipime 1gm) 1 gm in 100 mls @ 100 mls/hr IVPB Q8 [facility]; Protocol Stop: 08/02/18 10:16 Last Admin: 07/26/18 06:20 Dose: 100 mls/hr Sodium Chloride (Sodium Chloride 0.9%) 1,000 mls @ 100 mls/hr IV .Q10H [facility] Metoprolol Tartrate (Lopressor) 50 mg PO BID [facility] Dalfampridine [ Ampyra] 10 Mg ( Home Med) 10 mg PO BID [facility] Last Admin: 07/25/18 17:53 Dose: 10 mg Ondansetron HCl (Zofran Inj) 4 mg IVP Q4 PRN PRN Reason: Nausea/Vomiting Last Admin: 07/25/18 08:48 Dose: 4 mg Oxybutynin Chloride (Ditropan Tab) 10 mg PO QID [facility] Last Admin: 07/26/18 09:09 Dose: 10 mg Pantoprazole Sodium (Protonix Inj) 40 mg IVP DAILY [facility] Last Admin: 07/26/18 09:10 Dose: 40 mg - Labs Labs: 07/26/18 07:00 07/26/18 07:00 PT 15.7 SECONDS (9.4-12.5) H 07/22/18 06:30 INR 1.39 07/22/18 06:30 APTT 27.8 Seconds (26.9-38.3) 07/17/18 13:51 Attending/Attestation - Attestation I have personally seen and examined this patient.: Yes I have fully participated in the care of the patient.: Yes I have reviewed all pertinent clinical information, including history, physical exam and plan: Yes Notes (Text): 07/26/18 12:50 Attending note; Patient seen and examined with resident. Denies any nausea, vomiting. complaining of abdominal discomfort. Patient is currently n.p.o. Patient is a 68 year old female with history of multiple sclerosis that presented to the emergency room with nausea, vomiting, and abdominal pain. 1. Partial small bowel obstruction; NG tube removed yesterday. Still not tolerating diet. Case discussed with surgery in detail. Plan for surgery on Friday. Patient is low risk for planned surgical procedure. Cardiology evaluation requested. 2. Nausea and vomiting.;Continue Zofran as needed. Continue IV fluids. 3. ESBL UTI. ID recommendations appreciated. Patient asymptomatic. No antibiotic treatment indicated per ID.Continue contact isolation. 4. Multiple Scelerosis. Continue Ampyra. 5. Overactive bladder. Continue oxybutynin 6. Patient is a full code. Diagnosis, treatment plan discussed with patient in detail. Monitor closely. Upon discharge the patient will follow up with PMD Dr. Muniz.
--- NOTE | 2018-07-22 15:36 | RAD ---
Date of service: 07/22/2018 HISTORY: re-evaluate bowel obstruction COMPARISON: 07/20/2018 TECHNIQUE: Two view obtained. FINDINGS: BOWEL: Diffusely dilated contrast filled small bowel loops are seen. There is residual contrast and fecal material in the ascending colon. BONES: Normal. OTHER FINDINGS: None. IMPRESSION: Diffusely dilated contrast filled small bowel loops are seen. There is residual contrast and fecal material in the ascending colon.
--- NOTE | 2018-07-22 16:13 | CP.PCM.PCO ---
Additional Comments - Additional Comments Additional Comments: pt. with pos flatus, remains constipated, with hard small stool, denied abdom. pain, nausea vomiting. CT Scan abdom pos for obstructing lesion at junction of cecum, ascending colon. Abdomen flat plate xray consistent with sbo, per GI, high risk for colon perf for colonoscopy planned, cancelled, rec.surg consult for poss. colon resection. Cardiac consult for clearance pending. will continue to monitor clinical status and follow closely.
--- NOTE | 2018-07-22 16:32 | CP.PCM.PN ---
<Alejandro Yo - Last Filed: 07/22/18 16:59> Subjective - Date & Time of Evaluation Date of Evaluation: 07/22/18 Time of Evaluation: 16:35 - Subjective Subjective: PGY-4 GI Fellow Prog Note Pt lying in bed when seen this afternoon. Denied abd pain. + Flatus but no BM. 5 point ROS negative other than stated above Objective - Vital Signs/Intake and Output Vital Signs (last 24 hours): Temp Pulse Resp BP Pulse Ox 97.9 F 104 H 20 144/82 96 07/22/18 06:00 07/22/18 06:00 07/22/18 06:00 07/22/18 06:00 07/22/18 06:00 Intake and Output: 07/22/18 07/22/18 06:59 18:59 Output Total 910 Balance -910 - Medications Medications: Current Medications Acetaminophen (Tylenol 325mg Tab) 650 mg PO Q6H PRN PRN Reason: Fever >100.4 F Acetaminophen (Tylenol 325 Mg Supp) 650 mg RC Q6H PRN PRN Reason: Fever >100.4 F Last Admin: 07/18/18 17:38 Dose: 650 mg Benzocaine/Menthol (Cepacol Sore Throat) 1 lester MT Q2H PRN PRN Reason: Sore Throat Last Admin: 07/21/18 09:51 Dose: 1 lester Dextrose/Sodium Chloride (Dextrose 5%/0.9% Ns 1000 Ml) 1,000 mls @ 125 mls/hr IV .Q8H [facility] Last Admin: 07/22/18 11:41 Dose: 125 mls/hr Dalfampridine [ Ampyra] 10 Mg ( Home Med) 10 mg PO BID [facility] Ondansetron HCl (Zofran Inj) 4 mg IVP Q8H PRN PRN Reason: Nausea/Vomiting Last Admin: 07/21/18 18:54 Dose: 4 mg Oxybutynin Chloride (Ditropan Tab) 10 mg PO QID [facility] Last Admin: 07/22/18 16:21 Dose: 10 mg Pantoprazole Sodium (Protonix Inj) 40 mg IVP DAILY [facility] Last Admin: 07/22/18 09:44 Dose: 40 mg Polyethylene Glycol (Miralax) 17 gm PO BID [facility] Last Admin: 07/22/18 09:37 Dose: Not Given - Labs Labs: 07/22/18 06:30 07/22/18 06:30 PT 15.7 SECONDS (9.4-12.5) H 07/22/18 06:30 INR 1.39 07/22/18 06:30 APTT 27.8 Seconds (26.9-38.3) 07/17/18 13:51 - Constitutional Appears: Well, No Acute Distress - Head Exam Head Exam: ATRAUMATIC, NORMAL INSPECTION - Eye Exam Eye Exam: EOMI. absent: Scleral icterus - ENT Exam ENT Exam: Mucous Membranes Dry. absent: Mucous Membranes Moist - Respiratory Exam Respiratory Exam: NORMAL BREATHING PATTERN. absent: Accessory Muscle Use - GI/Abdominal Exam GI & Abdominal Exam: Distended, Soft, Hypoactive Bowel Sounds. absent: Firm, Guarding, Rigid, Tenderness, Normal Bowel Sounds Assessment and Plan - Assessment and Plan (Free Text) Assessment: 68 year old female with PMH of Multiple Sclerosis presenting with abdominal pain, nausea, and vomiting. Active treatment of partial bowel obstruction at junction of cecum and ascending colon confirmed on CT A/P PO contrast. No prior EGD or colonoscopy. Plan: -High risk for aspiration and/or bowel perforation for consideration of bowel preparation for colonoscopy in setting of retained stool throughout colon with unchanged dilated caliber of bowel loops -After review of images and discussion with General Surgery, safest course would be to proceed with surgical resection (likely R hemicolectomy) rather than colonoscopy at this time -NPO -Surgical planning per surgery Pt seen and examined with Dr. Pacheco; please see attestation for further recs/changes. <Lon Pacheco V - Last Filed: 07/22/18 18:23> Objective - Vital Signs/Intake and Output Vital Signs (last 24 hours): Temp Pulse Resp BP Pulse Ox 98.3 F 105 H 20 147/89 96 07/22/18 14:00 07/22/18 14:00 07/22/18 14:00 07/22/18 14:00 07/22/18 14:00 Intake and Output: 07/22/18 07/22/18 06:59 18:59 Output Total 910 Balance -910 - Medications Medications: Current Medications Acetaminophen (Tylenol 325mg Tab) 650 mg PO Q6H PRN PRN Reason: Fever >100.4 F Acetaminophen (Tylenol 325 Mg Supp) 650 mg RC Q6H PRN PRN Reason: Fever >100.4 F Last Admin: 07/18/18 17:38 Dose: 650 mg Benzocaine/Menthol (Cepacol Sore Throat) 1 lester MT Q2H PRN PRN Reason: Sore Throat Last Admin: 07/21/18 09:51 Dose: 1 lester Dextrose/Sodium Chloride (Dextrose 5%/0.9% Ns 1000 Ml) 1,000 mls @ 125 mls/hr IV .Q8H [facility] Last Admin: 07/22/18 11:41 Dose: 125 mls/hr Dalfampridine [ Ampyra] 10 Mg ( Home Med) 10 mg PO BID [facility] Ondansetron HCl (Zofran Inj) 4 mg IVP Q8H PRN PRN Reason: Nausea/Vomiting Last Admin: 07/21/18 18:54 Dose: 4 mg Oxybutynin Chloride (Ditropan Tab) 10 mg PO QID [facility] Last Admin: 07/22/18 16:21 Dose: 10 mg Pantoprazole Sodium (Protonix Inj) 40 mg IVP DAILY [facility] Last Admin: 07/22/18 09:44 Dose: 40 mg Polyethylene Glycol (Miralax) 17 gm PO BID [facility] Last Admin: 07/22/18 09:37 Dose: Not Given - Labs Labs: 07/22/18 06:30 07/22/18 06:30 PT 15.7 SECONDS (9.4-12.5) H 07/22/18 06:30 INR 1.39 07/22/18 06:30 APTT 27.8 Seconds (26.9-38.3) 07/17/18 13:51 Attending/Attestation - Attestation I have personally seen and examined this patient.: Yes I have fully participated in the care of the patient.: Yes I have reviewed all pertinent clinical information, including history, physical exam and plan: Yes Notes (Text): This is an addendum to the GI progress report dictated by the fellow. The patient was seen and evaluated along with the fellow. Discussed with the surgical team. Repeat abdominal x-ray was reviewed. Distended loops of the small bowel significant still present at the same level. Patient high risk for aspiration. And also an provider: This study is going to be very limited. Patient did have a near complete obstruction which requires a right hemicolectomy. Colonoscopy was canceled in view of the above. Patient also has hepatic lesions IV contrast CT done on initially it was more suggestive of hepatic cyst We will request CA as a baseline evaluation. Discussed with the patient's family who were at bedside 07/22/18 18:22
[2018-07-22] MEDS: Benzocaine/Menthol (Cepacol) Lozenge MT PRN (20:09)
--- NOTE | 2018-07-23 01:16 | PN ---
DATE: 07/22/2018 SUBJECTIVE: The patient is in bed, in no acute distress, nontoxic, was seen earlier this morning in room 560, bed 1. She is comfortable. PHYSICAL EXAMINATION: VITAL SIGNS: Temperature is 97, blood pressure is 140/80, respiratory rate of 20. HEENT: Unremarkable. NECK: Supple. LUNGS: Decreased breath sounds. HEART: Normal S1, S2. ABDOMEN: Soft. LABORATORY DATA: Reveals the patient's white count of 5.6, hemoglobin of 10, BUN of 2, creatinine 0.5. Urinalysis is noted. Review of orders reveals the patient to be off of antibiotics. Dr. Pacheco's note is reviewed. He recommends a surgical procedure surgical resection of most likely a right hemicolectomy for an obstructing lesion on the CAT scan at the junction of the cecum. ASSESSMENT AND PLAN: A 68-year-old female with history of multiple sclerosis, admitted with the ileus, found to have a cecal mass on CAT scan. No fevers, no tachycardia. The patient also was found to have asymptomatic bacteriuria with extended-spectrum beta-lactamases Escherichia coli. Currently off of antibiotics, afebrile. The patient is at risk for developing nosocomial infections. Annular mass in the ascending colon on CAT scan in a patient with multiple sclerosis, anxiety. We will follow with you. Kenn Goodrich MD
[2018-07-23 07:07] LABS: BASO # 0.02 K/mm3 (0.0-2.0); BASO % 0.3 % (0.0-3.0); EOS # 0.2 (0.0-0.7); EOS % 2.7 % (1.5-5.0); HEMOGLOBIN 10.1 g/dL (12.0-16.0); LYMPH % 34.3 % (22.0-35.0); MEAN CELL VOLUME 89.1 fl (80.0-105.0); MEAN CORPUSCULAR HEMOGLOBIN 28.1 pg (25.0-35.0); MEAN CORPUSCULAR HGB CONC 31.6 g/dl (31.0-37.0); MEAN PLATELET VOLUME 8.9 fl (7.0-11.0); MONO # 0.8 (0.1-0.6); MONO % 14.1 % (1.0-6.0); RBC 3.59 10^6/uL (3.5-6.1); RED CELL DISTRIBUTION WIDTH 14.9 % (11.5-14.5); WHITE BLOOD COUNT 5.8 10^3/uL (4.5-11.0)
[2018-07-23 07:47] LABS: ALB/GLOB RATIO 1.2 (1.1-1.8); ALBUMIN 2.8 g/dL (3.0-4.8); ALT/SGPT 39 U/L (7-56); AST/SGOT 41 U/L (14-36); BLOOD UREA NITROGEN 2 mg/dL (7-21); CALCIUM 8.3 mg/dL (8.4-10.5); GFR NON-AFRICAN AMERICAN > 60
--- NOTE | 2018-07-23 08:23 | CP.PCM.PN ---
Subjective - Date & Time of Evaluation Date of Evaluation: 07/23/18 Time of Evaluation: 08:19 - Subjective Subjective: SURGERY NOTE FOR DR. MELENDREZ 68F seen and examined at bedside. Patient states pain is mild and diffuse in abdomen, Denies nausea or vomiting overnight, denies any stool overnight, but admits to some flatus. Objective - Vital Signs/Intake and Output Vital Signs (last 24 hours): Temp Pulse Resp BP Pulse Ox 98.2 F 100 H 16 148/84 95 07/23/18 06:00 07/23/18 06:00 07/23/18 06:00 07/23/18 06:00 07/23/18 06:00 Intake and Output: 07/23/18 07/23/18 06:59 18:59 Intake Total 180 Output Total 1100 1100 Balance -920 -1100 - Medications Medications: Current Medications Acetaminophen (Tylenol 325mg Tab) 650 mg PO Q6H PRN PRN Reason: Fever >100.4 F Acetaminophen (Tylenol 325 Mg Supp) 650 mg RC Q6H PRN PRN Reason: Fever >100.4 F Last Admin: 07/18/18 17:38 Dose: 650 mg Benzocaine/Menthol (Cepacol Sore Throat) 1 lester MT Q2H PRN PRN Reason: Sore Throat Last Admin: 07/22/18 20:09 Dose: 1 lester Dextrose/Sodium Chloride (Dextrose 5%/0.9% Ns 1000 Ml) 1,000 mls @ 125 mls/hr IV .Q8H [facility] Last Admin: 07/22/18 20:17 Dose: 125 mls/hr Dalfampridine [ Ampyra] 10 Mg ( Home Med) 10 mg PO BID [facility] Last Admin: 07/22/18 18:40 Dose: 10 mg Ondansetron HCl (Zofran Inj) 4 mg IVP Q8H PRN PRN Reason: Nausea/Vomiting Last Admin: 07/21/18 18:54 Dose: 4 mg Oxybutynin Chloride (Ditropan Tab) 10 mg PO QID [facility] Last Admin: 07/22/18 21:34 Dose: 10 mg Pantoprazole Sodium (Protonix Inj) 40 mg IVP DAILY [facility] Last Admin: 07/22/18 09:44 Dose: 40 mg Polyethylene Glycol (Miralax) 17 gm PO BID [facility] Last Admin: 07/22/18 18:41 Dose: 17 gm - Labs Labs: 07/23/18 06:45 07/23/18 06:45 PT 15.7 SECONDS (9.4-12.5) H 07/22/18 06:30 INR 1.39 07/22/18 06:30 APTT 27.8 Seconds (26.9-38.3) 07/17/18 13:51 - Constitutional Appears: Non-toxic, No Acute Distress - ENT Exam ENT Exam: Mucous Membranes Moist - Respiratory Exam Respiratory Exam: Clear to Ausculation Bilateral, NORMAL BREATHING PATTERN - Cardiovascular Exam Cardiovascular Exam: REGULAR RHYTHM, +S1, +S2 - GI/Abdominal Exam GI & Abdominal Exam: Soft, Tenderness. absent: Distended, Firm, Guarding, Rigid, Rebound - Neurological Exam Neurological Exam: Alert, Awake - Skin Skin Exam: Dry, Intact, Normal Color, Warm Assessment and Plan - Assessment and Plan (Free Text) Assessment: 68F with bowel obstruction secondary to cecal mass Plan: - Plan for OR tomorrow, right hemicolectomy - Clears today, NPO after midnight - Pain control - AM labs, Coags - Medical/Cardiac clearance - Bowel prep, go-joãotely/[place] protocol - Spoke with Patient and her brother Andrew about the operation, explained the risk and benefits, both agree to the operation, also obtained blood transfusion consent Further recs discuss with Dr. Elly Luna, PGY3
[2018-07-23] MEDS ORDERED: Sodium Chloride 0.9% 1,000 ML IV SCH (09:15)
[2018-07-23] MEDS: Enoxaparin 30 mg Syringe SC SCH (10:41)
[2018-07-23] MEDS: POLYETHYLENE GLYCOL 3350 17 GM/Dose PACKET PO SCH ×2 (10:41→18:40)
[2018-07-23] MEDS: DALFAMPRIDINE 10 MG PO SCH ×2 (10:44→18:39)
--- NOTE | 2018-07-23 11:02 | CARD ---
APPROVED REPORT Date of service: 07/23/2018 EXAM: Two-dimensional and M-mode echocardiogram with Doppler and color Doppler. INDICATION Pre-Op 2D DIMENSIONS Left Atrium (2D)3.3 (1.6-4.0cm)IVSd1.0 (0.7-1.1cm) LVDd3.6 (3.9-5.9cm)PWd0.9 (0.7-1.1cm) LVDs2.7 (2.5-4.0cm)FS (%) 25.8 % LVEF (%)51.6 (>50%) M-Mode DIMENSIONS Aortic Root2.70 (2.2-3.7cm)Aortic Cusp Exc.1.70 (1.5-2.0cm) Aortic Valve AoV Peak Ncybribt775.0cm/Jim Peak GR.14mmHg Mitral Valve MV E Gjgfuluu55.1cm/sMV A Tjkmplzo547.0cm/sE/A ratio0.7 TDI E/Lateral E'0.0E/Medial E'0.0 Tricuspid Valve TR Peak [id number]/sRAP [id number] Peak Gr.15mmHg [id number] LEFT VENTRICLE The left ventricle is normal size. There is normal left ventricular wall thickness. Left ventricle systolic function is borderline. There is normal LV segmental wall motion. Transmitral Doppler flow pattern is Grade I-abnormal relaxation pattern. RIGHT VENTRICLE The right ventricle is normal size. There is normal right ventricular wall thickness. The right ventricular systolic function is normal. ATRIA The left atrium size is normal. The right atrium size is normal. AORTIC VALVE The aortic valve is mildly thickened. There is trace to mild aortic regurgitation. There is no aortic valvular stenosis. MITRAL VALVE The mitral valve is mildly thickened. There is no mitral valve regurgitation noted. There is no mitral valve stenosis. TRICUSPID VALVE The tricuspid valve is normal in structure. There is trace tricuspid regurgitation. PULMONIC VALVE The pulmonary valve is normal in structure. There is trace pulmonic valvular regurgitation. GREAT VESSELS The aortic root is normal in size. The IVC is normal in size and collapses >50% with inspiration. PERICARDIAL EFFUSION There is a trace pericardial effusion. <Conclusion> There is normal left ventricular wall thickness. Left ventricle systolic function is borderline. There is normal LV segmental wall motion. Transmitral Doppler flow pattern is Grade I-abnormal relaxation pattern. There is trace to mild aortic regurgitation.
[2018-07-23] MEDS: NuLYTELY (NACL/NAHCO3/KCL/PEG) 4L PO SCH ×2 (11:20→19:02)
[2018-07-23] MEDS: Sodium Chloride 0.9% 1,000 ML IV SCH (11:20)
--- NOTE | 2018-07-23 12:25 | CP.PCM.PN ---
<Darwin Robles - Last Filed: 07/23/18 13:22> Subjective - Date & Time of Evaluation Date of Evaluation: 07/23/18 Time of Evaluation: 06:15 - Subjective Subjective: Darwin Robles DO PGY1 Hospitalist Progress Note for Dr Sears Patient seen and examined at bedside. She admits to last night, passing flatus. Denies abdominal pain, N/V. No acute events overnight Objective - Vital Signs/Intake and Output Vital Signs (last 24 hours): Temp Pulse Resp BP Pulse Ox 98.2 F 100 H 16 148/84 95 07/23/18 06:00 07/23/18 06:00 07/23/18 06:00 07/23/18 06:00 07/23/18 06:00 Intake and Output: 07/23/18 07/23/18 06:59 18:59 Intake Total 180 Output Total 1100 1100 Balance -920 -1100 - Medications Medications: Current Medications Acetaminophen (Tylenol 325mg Tab) 650 mg PO Q6H PRN PRN Reason: Fever >100.4 F Acetaminophen (Tylenol 325 Mg Supp) 650 mg RC Q6H PRN PRN Reason: Fever >100.4 F Last Admin: 07/18/18 17:38 Dose: 650 mg Benzocaine/Menthol (Cepacol Sore Throat) 1 lester MT Q2H PRN PRN Reason: Sore Throat Last Admin: 07/22/18 20:09 Dose: 1 lester Enoxaparin Sodium (Lovenox) 30 mg SC DAILY [facility]; Protocol Last Admin: 07/23/18 10:41 Dose: 30 mg Erythromycin (Erythromycin) 1,000 mg PO ONCE ONE; Protocol Stop: 07/23/18 14:01 Erythromycin (Erythromycin) 1,000 mg PO ONCE ONE; Protocol Stop: 07/23/18 15:01 Erythromycin (Erythromycin) 1,000 mg PO ONCE ONE; Protocol Stop: 07/23/18 23:01 Sodium Chloride (Sodium Chloride 0.9%) 1,000 mls @ 75 mls/hr IV .[id number] [facility] Last Admin: 07/23/18 11:20 Dose: 75 mls/hr Metoprolol Tartrate (Lopressor) 25 mg PO BID [facility] Neomycin Sulfate (Neomycin Tab) 1,000 mg PO ONCE ONE Stop: 07/23/18 14:01 Neomycin Sulfate (Neomycin Tab) 1,000 mg PO ONCE ONE Stop: 07/23/18 15:01 Neomycin Sulfate (Neomycin Tab) 1,000 mg PO ONCE ONE Stop: 07/23/18 23:01 Dalfampridine [ Ampyra] 10 Mg ( Home Med) 10 mg PO BID [facility] Last Admin: 07/23/18 10:44 Dose: 10 mg Ondansetron HCl (Zofran Inj) 4 mg IVP Q8H PRN PRN Reason: Nausea/Vomiting Last Admin: 07/21/18 18:54 Dose: 4 mg Oxybutynin Chloride (Ditropan Tab) 10 mg PO QID [facility] Last Admin: 07/23/18 10:41 Dose: 10 mg Pantoprazole Sodium (Protonix Inj) 40 mg IVP DAILY [facility] Last Admin: 07/23/18 10:42 Dose: 40 mg Polyethylene Glycol (Miralax) 17 gm PO BID [facility] Last Admin: 07/23/18 10:41 Dose: 17 gm Sodium Cl/Sod Bicarb/Potass Cl/PEG (Nulytely With Flavor Packs Amanda) 2,000 ml PO Q6H [facility] Stop: 07/23/18 15:16 Last Admin: 07/23/18 11:20 Dose: 2,000 ml - Labs Labs: 07/23/18 06:45 07/23/18 06:45 PT 15.7 SECONDS (9.4-12.5) H 07/22/18 06:30 INR 1.39 07/22/18 06:30 APTT 27.8 Seconds (26.9-38.3) 07/17/18 13:51 - Constitutional Appears: Well, Non-toxic - Head Exam Head Exam: ATRAUMATIC, NORMOCEPHALIC - Eye Exam Eye Exam: EOMI, Normal appearance, PERRL Pupil Exam: NORMAL ACCOMODATION, PERRL - ENT Exam ENT Exam: Mucous Membranes Moist - Neck Exam Neck Exam: Normal Inspection - Respiratory Exam Respiratory Exam: Clear to Ausculation Bilateral, NORMAL BREATHING PATTERN. absent: Rhonchi, Wheezes - Cardiovascular Exam Cardiovascular Exam: REGULAR RHYTHM, +S1, +S2. absent: JVD, RRR, Murmur - GI/Abdominal Exam GI & Abdominal Exam: Soft, Normal Bowel Sounds. absent: Tenderness - Extremities Exam Extremities Exam: Full ROM, Normal Capillary Refill, Normal Inspection. absent: Joint Swelling, Pedal Edema - Back Exam Back Exam: NORMAL INSPECTION - Neurological Exam Neurological Exam: Alert, Awake, CN II-XII Intact, Oriented x3 - Psychiatric Exam Psychiatric exam: Depressed - Skin Skin Exam: Dry, Normal Color, Warm Assessment and Plan - Assessment and Plan (Free Text) Assessment: 68 y/o female with PMH of MS presents with abdominal pain, nausea, NB vomiting. Found to have SBO with obstructive cecal mass Plan: SBO with cecal mass: -patient is going for right hemicolectomy on 07/24. high risk for colonscopy -NPO after midnight. on bowel prep -serial abdominal xray did not show any improvement -CT A/P: dilated small bowel. liquid stool noted throughout small intestine and mix of hard stool and liquid noted in colon -patient evaluated by cardiology for cardiac risk stratification -Echo: LVEF 51.6%, LV function is borderline, normal LV wall thickness -RCRI-Reviced Cardiac Risk Stratification is 1% -IVF:NS@ 75 cc/hr -continue zofran, protonix -GI following DR Pacheco -surgery on board, Dr Sanabria h/o multiple sclerosis: -continue home med ampyra -patient uses wheelchair/walker at home Asymptomatic ESBL: -Ucx: + ESBL, no abx needed PPX: DVT: SCD GI: protonix PT: recommended TCU d/c Case reviewed and plan discussed with attending Dr Orion Robles, DO <Shelly Sears R - Last Filed: 07/24/18 13:16> Objective - Vital Signs/Intake and Output Vital Signs (last 24 hours): Temp Pulse Resp BP Pulse Ox 98.4 F 94 H 18 127/71 100 07/24/18 08:52 07/24/18 08:52 07/24/18 08:52 07/24/18 08:52 07/24/18 08:52 Intake and Output: 07/24/18 07/24/18 06:59 18:59 Intake Total 0 Balance 0 - Medications Medications: Current Medications Acetaminophen (Tylenol 325mg Tab) 650 mg PO Q6H PRN PRN Reason: Fever >100.4 F Acetaminophen (Tylenol 325 Mg Supp) 650 mg RC Q6H PRN PRN Reason: Fever >100.4 F Last Admin: 07/18/18 17:38 Dose: 650 mg Benzocaine/Menthol (Cepacol Sore Throat) 1 lester MT Q2H PRN PRN Reason: Sore Throat Last Admin: 07/23/18 21:59 Dose: 1 lester Enoxaparin Sodium (Lovenox) 30 mg SC DAILY [facility]; Protocol Last Admin: 07/23/18 10:41 Dose: 30 mg Hydromorphone HCl (Dilaudid) 0.5 mg IVP Q4H PRN PRN Reason: Pain, severe (8-10) Hydromorphone HCl (Dilaudid) 0.5 mg IVP Q15M PRN PRN Reason: Pain, Moderate/Severe (4-10) Sodium Chloride (Sodium Chloride 0.9%) 1,000 mls @ 75 mls/hr IV .[id number] [facility] Last Admin: 07/23/18 11:20 Dose: 75 mls/hr Potassium Chloride (Potassium Chloride 10 Meq/100 Ml) 10 meq in 100 mls @ 100 mls/hr IVPB Q2H [facility] Stop: 07/24/18 15:44 Lactated Ringer's (Lactated Ringer's) 1,000 mls @ 75 mls/hr IV .[id number] [facility] Stop: 07/24/18 15:16 Metoprolol Tartrate (Lopressor) 25 mg PO BID [facility] Last Admin: 07/24/18 08:32 Dose: 25 mg Dalfampridine [ Ampyra] 10 Mg ( Home Med) 10 mg PO BID [facility] Last Admin: 07/23/18 18:39 Dose: 10 mg Ondansetron HCl (Zofran Inj) 4 mg IVP Q8H PRN PRN Reason: Nausea/Vomiting Last Admin: 07/24/18 02:43 Dose: 4 mg Oxybutynin Chloride (Ditropan Tab) 10 mg PO QID [facility] Last Admin: 07/23/18 21:59 Dose: 10 mg Pantoprazole Sodium (Protonix Inj) 40 mg IVP DAILY [facility] Last Admin: 07/23/18 10:42 Dose: 40 mg Polyethylene Glycol (Miralax) 17 gm PO BID [facility] Last Admin: 07/23/18 18:40 Dose: Not Given - Labs Labs: 07/24/18 06:40 07/24/18 06:40 PT 15.7 SECONDS (9.4-12.5) H 07/22/18 06:30 INR 1.39 07/22/18 06:30 APTT 27.8 Seconds (26.9-38.3) 07/17/18 13:51 Attending/Attestation - Attestation I have personally seen and examined this patient.: Yes I have fully participated in the care of the patient.: Yes I have reviewed all pertinent clinical information, including history, physical exam and plan: Yes Notes (Text): Patient seen and examined by me with resident at approximately 11:35AM on 07/23/18. Case including HPI, physical exam, and assessment and plan discussed with resident. Agree with above with following additions/corrections. Patient states she feels ok. Patient understands she is going for surgery tomorrow. All questions were answered. Patient denied any abdominal pain. No nausea or vomiting. Tolerating diet. States she had a bowel movement today. No dysuria or burning with urination. No headaches or dizziness. No fevers or chills. No chest pain or shortness of breath. Physical exam: General: Awake and alert lying in bed in no acute distress HEENT: Normocephalic, atraumatic. Extraocular muscles intact. Pupils equal and reactive, no scleral icterus. Oropharynx is pink. Positive dry mucous membranes. Neck is supple. Cardiovascular: Normal rhythm. Normal S1 and S2. No murmurs, rubs, or gallops appreciated Pulmonary: Normal respiratory effort. No rhonchi, rales, or wheezing apprec iated. Gastrointestinal: Soft, mild distention. Nontender. Positive bowel sounds all 4 quadrants. No guarding. Musculoskeletal: Moves all extremities. No calf tenderness. No edema appreciated. Central nervous system: AAO X 3. Dermatologic: Skin warm and dry. Assessment and plan: Patient is a 68 year old female with history of multiple sclerosis that presented to the emergency room with nausea, vomiting, and abdominal pain. 1. Annular cecal lesion, partial obstruction. CT abd/pelvis 07/21/18 per r adiologist showed no significant change in the pattern of diffusely dilated small bowel loops, there is an annular lesion at the junction of the cecum and ascending colon which is producing partial obstruction; below this level, the cecum is dilated and filled with fluid; above this level, the colon is essentially collapsed and contains more dense contrast and fecal material. Abdominal xray 07/22/18 per radiologist showed diffusely dilated contrast filled snmall bowel loops are seen, there is residual contrast and fecal material in the ascending colon. Surgical and GI recommendations appreciated. Patient for OR tomorrow. Tolerating liquid diet. 2. Nausea and vomiting. Resolved. Continue Zofran as needed. 3. Fecal retention. Resolved for now. Continue miralax. Continue to monitor. 4. ESBL UTI. ID recommendations appreciated. Patient asymptomatic. No antibiotic treatment indicated per ID. Continue contact isolation. 5. Multiple Scelerosis. Continue Ampyra. 6. Overactive bladder. Continue oxybutynin 7. Patient is a full code. Case was discussed in detail with the patient regarding current diagnosis, study results, and treatment plan. All questions answered.
[2018-07-23] MEDS ORDERED: ERYthromycin Base 250 MG DR Cap PO ONE ×3 (14:00→23:00)
--- NOTE | 2018-07-23 14:08 | CP.PCM.PCO ---
Physician Communication Note - Physician Communication Note Physician Communication Note: pt.receiving bowel prep,for hemicolectomy tommorow.
--- NOTE | 2018-07-23 14:15 | PN ---
DATE: 07/23/2018 SUBJECTIVE: The patient is in bed, in no acute distress, nontoxic. PHYSICAL EXAMINATION: VITAL SIGNS: Temperature is 98, blood pressure is 140/80, respiratory rate of 18. HEENT: Unremarkable. NECK: Supple. LUNGS: Have decreased breath sounds. HEART: Normal S1 and S2. ABDOMEN: Soft. LABORATORY DATA: Reveals a white count of 5.8, hemoglobin of 10. Chemistries are noted. Urinalysis is noted. Microbiology is reviewed with E. coli in the urine. The blood cultures are negative. E. coli is ESBL. REVIEW OF ORDERS: Confirms the patient to be off of antibiotics. ASSESSMENT AND PLAN: A 68-year-old female who was seen in [facility], bed 1, with multiple sclerosis, admitted with ileus, found to have a cecal mass on CAT scan. The patient has asymptomatic bacteriuria with extended-spectrum beta-lactamases Escherichia coli, does not require treatment, currently off of antibiotics. Awaiting for surgical input regarding the cecal mass. The patient is planned for a right hemicolectomy for tomorrow. The patient is at risk for developing nosocomial infection. Kenn Goodrich MD
--- NOTE | 2018-07-23 15:16 | CP.PCM.PN ---
<Alejandro Yo - Last Filed: 07/23/18 15:13> Subjective - Date & Time of Evaluation Date of Evaluation: 07/23/18 Time of Evaluation: 08:55 - Subjective Subjective: PGY-4 GI Fellow Prog Note Pt sitting in bedside chair when seen this AM. States still passing gas with some small dark BM this AM. 5 point ROS negative other than stated above Objective - Vital Signs/Intake and Output Vital Signs (last 24 hours): Temp Pulse Resp BP Pulse Ox 98 F 130 H 16 160/93 H 97 07/23/18 14:00 07/23/18 14:00 07/23/18 14:00 07/23/18 14:00 07/23/18 14:00 Intake and Output: 07/23/18 07/23/18 06:59 18:59 Intake Total 180 Output Total 1100 1100 Balance -920 -1100 - Medications Medications: Current Medications Acetaminophen (Tylenol 325mg Tab) 650 mg PO Q6H PRN PRN Reason: Fever >100.4 F Acetaminophen (Tylenol 325 Mg Supp) 650 mg RC Q6H PRN PRN Reason: Fever >100.4 F Last Admin: 07/18/18 17:38 Dose: 650 mg Benzocaine/Menthol (Cepacol Sore Throat) 1 lester MT Q2H PRN PRN Reason: Sore Throat Last Admin: 07/22/18 20:09 Dose: 1 lester Enoxaparin Sodium (Lovenox) 30 mg SC DAILY [facility]; Protocol Last Admin: 07/23/18 10:41 Dose: 30 mg Erythromycin (Erythromycin) 1,000 mg PO ONCE ONE; Protocol Stop: 07/23/18 23:01 Sodium Chloride (Sodium Chloride 0.9%) 1,000 mls @ 75 mls/hr IV .[id number] [facility] Last Admin: 07/23/18 11:20 Dose: 75 mls/hr Metoprolol Tartrate (Lopressor) 25 mg PO BID [facility] Last Admin: 07/23/18 12:40 Dose: 25 mg Neomycin Sulfate (Neomycin Tab) 1,000 mg PO ONCE ONE Stop: 07/23/18 23:01 Dalfampridine [ Ampyra] 10 Mg ( Home Med) 10 mg PO BID [facility] Last Admin: 07/23/18 10:44 Dose: 10 mg Ondansetron HCl (Zofran Inj) 4 mg IVP Q8H PRN PRN Reason: Nausea/Vomiting Last Admin: 07/21/18 18:54 Dose: 4 mg Oxybutynin Chloride (Ditropan Tab) 10 mg PO QID [facility] Last Admin: 07/23/18 13:42 Dose: 10 mg Pantoprazole Sodium (Protonix Inj) 40 mg IVP DAILY [facility] Last Admin: 07/23/18 10:42 Dose: 40 mg Polyethylene Glycol (Miralax) 17 gm PO BID [facility] Last Admin: 07/23/18 10:41 Dose: 17 gm Sodium Cl/Sod Bicarb/Potass Cl/PEG (Nulytely With Flavor Packs Amanda) 2,000 ml PO Q6H [facility] Stop: 07/23/18 15:16 Last Admin: 07/23/18 11:20 Dose: 2,000 ml - Labs Labs: 07/23/18 06:45 07/23/18 06:45 PT 15.7 SECONDS (9.4-12.5) H 07/22/18 06:30 INR 1.39 07/22/18 06:30 APTT 27.8 Seconds (26.9-38.3) 07/17/18 13:51 - Constitutional Appears: Well, No Acute Distress - Eye Exam Eye Exam: EOMI. absent: Scleral icterus - ENT Exam ENT Exam: Mucous Membranes Dry. absent: Mucous Membranes Moist - Respiratory Exam Respiratory Exam: NORMAL BREATHING PATTERN. absent: Accessory Muscle Use - GI/Abdominal Exam GI & Abdominal Exam: Distended (mildly), Soft. absent: Firm, Guarding, Rigid, Tenderness Assessment and Plan - Assessment and Plan (Free Text) Assessment: 68 year old female with PMH of Multiple Sclerosis presenting with abdominal pain, nausea, and vomiting. Active treatment of partial bowel obstruction at junction of cecum and ascending colon confirmed on CT A/P PO contrast. No prior EGD or colonoscopy. Plan: -After review of images and discussion with General Surgery, safest course would be to proceed with surgical resection (likely R hemicolectomy) rather than colonoscopy - Diet per surgery - Surgery planned for 07/24/18 - CEA lvl in AM prior to surgery - Consider triple phase liver CT at later time Pt seen and examined with Dr. Pacheco; please see attestation for further recs/changes. <Lon Pacheco V - Last Filed: 07/23/18 19:25> Objective - Vital Signs/Intake and Output Vital Signs (last 24 hours): Temp Pulse Resp BP Pulse Ox 98 F 94 H 16 144/89 97 07/23/18 14:00 07/23/18 18:50 07/23/18 14:00 07/23/18 18:50 07/23/18 14:00 Intake and Output: 07/23/18 07/24/18 18:59 06:59 Output Total 1100 Balance -1100 - Medications Medications: Current Medications Acetaminophen (Tylenol 325mg Tab) 650 mg PO Q6H PRN PRN Reason: Fever >100.4 F Acetaminophen (Tylenol 325 Mg Supp) 650 mg RC Q6H PRN PRN Reason: Fever >100.4 F Last Admin: 07/18/18 17:38 Dose: 650 mg Benzocaine/Menthol (Cepacol Sore Throat) 1 lester MT Q2H PRN PRN Reason: Sore Throat Last Admin: 07/22/18 20:09 Dose: 1 lester Enoxaparin Sodium (Lovenox) 30 mg SC DAILY [facility]; Protocol Last Admin: 07/23/18 10:41 Dose: 30 mg Erythromycin (Erythromycin) 1,000 mg PO ONCE ONE; Protocol Stop: 07/23/18 23:01 Sodium Chloride (Sodium Chloride 0.9%) 1,000 mls @ 75 mls/hr IV .[id number] [facility] Last Admin: 07/23/18 11:20 Dose: 75 mls/hr Metoprolol Tartrate (Lopressor) 25 mg PO BID [facility] Last Admin: 07/23/18 18:50 Dose: 25 mg Neomycin Sulfate (Neomycin Tab) 1,000 mg PO ONCE ONE Stop: 07/23/18 23:01 Dalfampridine [ Ampyra] 10 Mg ( Home Med) 10 mg PO BID [facility] Last Admin: 07/23/18 18:39 Dose: 10 mg Ondansetron HCl (Zofran Inj) 4 mg IVP Q8H PRN PRN Reason: Nausea/Vomiting Last Admin: 07/21/18 18:54 Dose: 4 mg Oxybutynin Chloride (Ditropan Tab) 10 mg PO QID [facility] Last Admin: 07/23/18 18:46 Dose: 10 mg Pantoprazole Sodium (Protonix Inj) 40 mg IVP DAILY [facility] Last Admin: 07/23/18 10:42 Dose: 40 mg Polyethylene Glycol (Miralax) 17 gm PO BID [facility] Last Admin: 07/23/18 18:40 Dose: Not Given - Labs Labs: 07/23/18 06:45 07/23/18 06:45 PT 15.7 SECONDS (9.4-12.5) H 07/22/18 06:30 INR 1.39 07/22/18 06:30 APTT 27.8 Seconds (26.9-38.3) 07/17/18 13:51 Attending/Attestation - Attestation I have personally seen and examined this patient.: Yes I have fully participated in the care of the patient.: Yes I have reviewed all pertinent clinical information, including history, physical exam and plan: Yes Notes (Text): This patient was seen and evaluated along with the GI fellow. This is an addendum to the progress report dictated by the fellow. Discussed with the patient's brother at the request of the patient. Discussed with the surgical team. Plan for the OR tomorrow. Patient is now passing flatus and also small amount of bowel movements. CT scan was reviewed initial CT done with contrast suggest only hepatic cyst. Further work-up to rule out metastatic disease can be considered later post op 07/23/18 19:23
--- NOTE | 2018-07-23 18:45 | CARD ---
APPROVED REPORT Date of service: 07/23/2018 EKG Measurement Heart [id number] <Conclusion> Sinus tachycardia Otherwise normal ECG
[2018-07-23] MEDS ORDERED: ERYthromycin Base 250 MG DR Cap PO STA (18:50)
[2018-07-23] MEDS: Benzocaine/Menthol (Cepacol) Lozenge MT PRN (21:59)
[2018-07-24 07:01] LABS: BASO # 0.01 K/mm3 (0.0-2.0); BASO % 0.2 % (0.0-3.0); EOS # 0.2 (0.0-0.7); EOS % 2.3 % (1.5-5.0); HEMOGLOBIN 10.6 g/dL (12.0-16.0); LYMPH # 2.1 (1.2-3.4); LYMPH % 32.9 % (22.0-35.0); MEAN CELL VOLUME 88.8 fl (80.0-105.0); MEAN CORPUSCULAR HEMOGLOBIN 28.2 pg (25.0-35.0); MEAN CORPUSCULAR HGB CONC 31.7 g/dl (31.0-37.0); MEAN PLATELET VOLUME 8.6 fl (7.0-11.0); MONO # 0.8 (0.1-0.6); RBC 3.76 10^6/uL (3.5-6.1); RED CELL DISTRIBUTION WIDTH 15.3 % (11.5-14.5); WHITE BLOOD COUNT 6.5 10^3/uL (4.5-11.0)
[2018-07-24 08:01] LABS: ALB/GLOB RATIO 1.3 (1.1-1.8); ALBUMIN 3.2 g/dL (3.0-4.8); ALT/SGPT 48 U/L (7-56); AST/SGOT 40 U/L (14-36); BLOOD UREA NITROGEN 5 mg/dL (7-21); GFR NON-AFRICAN AMERICAN > 60
--- NOTE | 2018-07-24 08:08 | CP.PCM.PN ---
Subjective - Date & Time of Evaluation Date of Evaluation: 07/24/18 (n) Time of Evaluation: 08:05 - Subjective Subjective: I contacted Dr Grimes as patient is going for hemicolectomy this am. Dr Grimes replied Patient is cleared cardiac chinchilla. Objective - Vital Signs/Intake and Output Vital Signs (last 24 hours): Temp Pulse Resp BP Pulse Ox 97.8 F 107 H 18 139/80 96 07/24/18 06:00 07/24/18 06:00 07/24/18 06:00 07/24/18 06:00 07/24/18 06:00 - Medications Medications: Current Medications Acetaminophen (Tylenol 325mg Tab) 650 mg PO Q6H PRN PRN Reason: Fever >100.4 F Acetaminophen (Tylenol 325 Mg Supp) 650 mg RC Q6H PRN PRN Reason: Fever >100.4 F Last Admin: 07/18/18 17:38 Dose: 650 mg Benzocaine/Menthol (Cepacol Sore Throat) 1 lester MT Q2H PRN PRN Reason: Sore Throat Last Admin: 07/23/18 21:59 Dose: 1 lester Enoxaparin Sodium (Lovenox) 30 mg SC DAILY [facility]; Protocol Last Admin: 07/23/18 10:41 Dose: 30 mg Sodium Chloride (Sodium Chloride 0.9%) 1,000 mls @ 75 mls/hr IV .[id number] [facility] Last Admin: 07/23/18 11:20 Dose: 75 mls/hr Metoprolol Tartrate (Lopressor) 25 mg PO BID [facility] Last Admin: 07/23/18 18:50 Dose: 25 mg Dalfampridine [ Ampyra] 10 Mg ( Home Med) 10 mg PO BID [facility] Last Admin: 07/23/18 18:39 Dose: 10 mg Ondansetron HCl (Zofran Inj) 4 mg IVP Q8H PRN PRN Reason: Nausea/Vomiting Last Admin: 07/24/18 02:43 Dose: 4 mg Oxybutynin Chloride (Ditropan Tab) 10 mg PO QID [facility] Last Admin: 07/23/18 21:59 Dose: 10 mg Pantoprazole Sodium (Protonix Inj) 40 mg IVP DAILY [facility] Last Admin: 07/23/18 10:42 Dose: 40 mg Polyethylene Glycol (Miralax) 17 gm PO BID [facility] Last Admin: 07/23/18 18:40 Dose: Not Given - Labs Labs: 07/24/18 06:40 07/24/18 06:40 PT 15.7 SECONDS (9.4-12.5) H 07/22/18 06:30 INR 1.39 07/22/18 06:30 APTT 27.8 Seconds (26.9-38.3) 07/17/18 13:51
--- NOTE | 2018-07-24 08:54 | CON ---
DATE: 07/23/2018 CARDIOLOGY CONSULT REASON FOR CONSULTATION: Preoperative evaluation. HISTORY OF PRESENT ILLNESS: The patient is a 68-year-old female who has a history of multiple sclerosis since 1982, which left her with limping and using a walker to walk around as well as legal blindness, as well as numbness. The patient initially presented on the 07/17 because of nausea and vomiting. Abdomen and pelvic CT scan performed two days ago revealed an annular lesion in the junction of the cecum and ascending colon, which is producing partial obstruction. Below that level, the cecum is dilated and filled with fluid, colon is essentially collapsed and continues contrast and fecal material, and the patient is being considered for a right hemicolectomy tomorrow. The patient denies any history of chest pain and is unaware of any prior cardiac history. SOCIAL HISTORY: Nonsmoker. She lives by herself with a home help person and she receives meals on wheels. MEDICATIONS: Current medications are Cepacol lozenges, Ditropan 10 mg twice a day, erythromycin 1 g p.o. once a day, Lovenox 30 mg subcutaneous once a day, neomycin 1 g p.o. daily, MiraLAX 17 g p.o. twice a day, Protonix 40 mg intravenously once a day, and Zofran 4 mg intravenously every 8 hours. PAST MEDICAL HISTORY: Multiple sclerosis with residual lower extremity weakness requiring a walker and also legal blindness. PHYSICAL EXAMINATION: GENERAL: The patient is an elderly female who does not appear to be in no acute distress. VITAL SIGNS: Blood pressure 148/84, heart rate 100, temperature 98.2, and respirations 16. HEENT: The patient has divergent squint and very poor visual acuity. NECK: No JVD. CHEST: Clear. HEART: S1 and S2 regular. ABDOMEN: Soft. EXTREMITIES: No edema. . LABORATORY DATA: Hemoglobin and hematocrit 10.1 and 32.0, white count and platelet count are within normal limits. Today's SMA-7; sodium 140, potassium 3.9, chloride 109, CO2 of 26, glucose 96, BUN 2, creatinine 0.5. EKG on 07/18 reveals sinus tachycardia at the rate of 115. Echocardiographic study performed today revealed normal left ventricular wall thickness with borderline ejection fraction and grade I abnormal relaxation pattern. Trace to mild aortic insufficiency. ASSESSMENT: 1. Cecal mass. The patient is being considered for a right hemicolectomy tomorrow. 2. Diastolic left ventricular dysfunction. 3. Multiple sclerosis. RECOMMENDATIONS: Obtain an followup EKG today. The patient's heart rate is 100, which is borderline tachycardic. Start low dose Lopressor therapy at 12.5 mg twice a day. The patient can undergo right hemicolectomy from the cardiac point of view with except those cardiac risk. Postoperative telemetry monitoring. Brian Gonzales MD
--- NOTE | 2018-07-24 08:59 | CP.PCM.PN ---
<Alejandro Yo - Last Filed: 07/24/18 18:17> Subjective - Date & Time of Evaluation Date of Evaluation: 07/24/18 Time of Evaluation: 08:10 - Subjective Subjective: PGY-4 GI Fellow Prog Note Pt lying in bed when seen this AM. States she is doing well with mild nausea in anticipation of surgery today. Denied abd pain. 5 point ROS negative other than stated above Objective - Vital Signs/Intake and Output Vital Signs (last 24 hours): Temp Pulse Resp BP Pulse Ox 98.4 F 94 H 18 127/71 100 07/24/18 08:52 07/24/18 08:52 07/24/18 08:52 07/24/18 08:52 07/24/18 08:52 - Medications Medications: Current Medications Acetaminophen (Tylenol 325mg Tab) 650 mg PO Q6H PRN PRN Reason: Fever >100.4 F Acetaminophen (Tylenol 325 Mg Supp) 650 mg RC Q6H PRN PRN Reason: Fever >100.4 F Last Admin: 07/18/18 17:38 Dose: 650 mg Benzocaine/Menthol (Cepacol Sore Throat) 1 lester MT Q2H PRN PRN Reason: Sore Throat Last Admin: 07/23/18 21:59 Dose: 1 lester Enoxaparin Sodium (Lovenox) 30 mg SC DAILY [facility]; Protocol Last Admin: 07/23/18 10:41 Dose: 30 mg Sodium Chloride (Sodium Chloride 0.9%) 1,000 mls @ 75 mls/hr IV .[id number] [facility] Last Admin: 07/23/18 11:20 Dose: 75 mls/hr Potassium Chloride (Potassium Chloride 10 Meq/100 Ml) 10 meq in 100 mls @ 100 mls/hr IVPB Q2H [facility] Stop: 07/24/18 15:44 Metoprolol Tartrate (Lopressor) 25 mg PO BID [facility] Last Admin: 07/24/18 08:32 Dose: 25 mg Dalfampridine [ Ampyra] 10 Mg ( Home Med) 10 mg PO BID [facility] Last Admin: 07/23/18 18:39 Dose: 10 mg Ondansetron HCl (Zofran Inj) 4 mg IVP Q8H PRN PRN Reason: Nausea/Vomiting Last Admin: 05/24/19 02:43 Dose: 4 mg Oxybutynin Chloride (Ditropan Tab) 10 mg PO QID [facility] Last Admin: 07/23/18 21:59 Dose: 10 mg Pantoprazole Sodium (Protonix Inj) 40 mg IVP DAILY [facility] Last Admin: 07/23/18 10:42 Dose: 40 mg Polyethylene Glycol (Miralax) 17 gm PO BID [facility] Last Admin: 07/23/18 18:40 Dose: Not Given - Labs Labs: 07/24/18 06:40 07/24/18 06:40 PT 15.7 SECONDS (9.4-12.5) H 07/22/18 06:30 INR 1.39 07/22/18 06:30 APTT 27.8 Seconds (26.9-38.3) 07/17/18 13:51 - Constitutional Appears: No Acute Distress, Chronically Ill - Head Exam Head Exam: ATRAUMATIC, NORMAL INSPECTION - ENT Exam ENT Exam: Mucous Membranes Dry. absent: Mucous Membranes Moist - Respiratory Exam Respiratory Exam: NORMAL BREATHING PATTERN. absent: Accessory Muscle Use - GI/Abdominal Exam GI & Abdominal Exam: Distended (midlly), Soft. absent: Firm, Guarding, Rigid, Tenderness Assessment and Plan - Assessment and Plan (Free Text) Assessment: 68 year old female with PMH of Multiple Sclerosis presenting with abdominal pain, nausea, and vomiting. Active treatment of partial bowel obstruction at junction of cecum and ascending colon confirmed on CT A/P PO contrast. No prior EGD or colonoscopy. Plan: - Plan for R hemicolectomy with Gen Surg today; await surgical and path reports - Diet per surgery - CEA lvl this AM - Consider triple phase liver CT at later time Pt seen and examined with Dr. Pacheco; please see attestation for further recs/changes. <Lon Pacehco V - Last Filed: 07/24/18 18:42> Objective - Vital Signs/Intake and Output Vital Signs (last 24 hours): Temp Pulse Resp BP Pulse Ox 98.4 F 100 H 15 142/87 99 07/24/18 15:30 07/24/18 18:01 07/24/18 15:30 07/24/18 18:01 07/24/18 15:30 Intake and Output: 07/24/18 07/24/18 06:59 18:59 Intake Total 375 Output Total 350 Balance 25 - Medications Medications: Current Medications Acetaminophen (Tylenol 325mg Tab) 650 mg PO Q6H PRN PRN Reason: Fever >100.4 F Acetaminophen (Tylenol 325 Mg Supp) 650 mg RC Q6H PRN PRN Reason: Fever >100.4 F Last Admin: 07/18/18 17:38 Dose: 650 mg Benzocaine/Menthol (Cepacol Sore Throat) 1 lester MT Q2H PRN PRN Reason: Sore Throat Last Admin: 07/24/18 18:19 Dose: 1 lester Enoxaparin Sodium (Lovenox) 30 mg SC DAILY [facility]; Protocol Last Admin: 07/23/18 10:41 Dose: 30 mg Hydromorphone HCl (Dilaudid) 0.5 mg IVP Q4H PRN PRN Reason: Pain, severe (8-10) Last Admin: 07/24/18 18:19 Dose: 0.5 mg Hydromorphone HCl (Dilaudid) 0.5 mg IVP Q15M PRN PRN Reason: Pain, Moderate/Severe (4-10) Sodium Chloride (Sodium Chloride 0.9%) 1,000 mls @ 75 mls/hr IV .[id number] [facility] Last Admin: 07/23/18 11:20 Dose: 75 mls/hr Metoprolol Tartrate (Lopressor) 25 mg PO BID [facility] Last Admin: 07/24/18 18:01 Dose: 25 mg Dalfampridine [ Ampyra] 10 Mg ( Home Med) 10 mg PO BID [facility] Last Admin: 07/24/18 18:00 Dose: 10 mg Ondansetron HCl (Zofran Inj) 4 mg IVP Q8H PRN PRN Reason: Nausea/Vomiting Last Admin: 07/24/18 02:43 Dose: 4 mg Oxybutynin Chloride (Ditropan Tab) 10 mg PO QID [facility] Last Admin: 07/24/18 18:00 Dose: 10 mg Pantoprazole Sodium (Protonix Inj) 40 mg IVP DAILY [facility] Last Admin: 07/24/18 18:05 Dose: 40 mg Polyethylene Glycol (Miralax) 17 gm PO BID [facility] Last Admin: 07/24/18 18:04 Dose: Not Given - Labs Labs: 07/24/18 06:40 07/24/18 06:40 PT 15.7 SECONDS (9.4-12.5) H 07/22/18 06:30 INR 1.39 07/22/18 06:30 APTT 27.8 Seconds (26.9-38.3) 07/17/18 13:51 Attending/Attestation - Attestation I have personally seen and examined this patient.: Yes I have fully participated in the care of the patient.: Yes I have reviewed all pertinent clinical information, including history, physical exam and plan: Yes Notes (Text): This is an addendum to the GI progress note dictated by the fellow. The patient was seen and evaluated along with the resident fellow earlier today. Patient's family was at bedside. Status post right hemicolectomy. Follow-up the path. Postop as per surgery. Patient would need colonoscopy after a month the patient completely recovers from the surgery. 07/24/18 18:41
[2018-07-24] MEDS ORDERED: Bupivacaine 0.5% 50 ML IJ ONE (09:53)
--- NOTE | 2018-07-24 09:53 | PN ---
DATE: 07/24/2018 SUBJECTIVE: The patient is in bed in no acute distress, was seen earlier this morning and she is having dry heaves. She states she had no vomiting today and she feels somewhat nauseated. She has no fevers. PHYSICAL EXAMINATION: VITAL SIGNS: Temperature is 97, blood pressure is 135/70, respiratory of 18. HEENT: Unremarkable. NECK: Supple. LUNGS: Have decreased breath sounds. HEART: Normal S1, S2. ABDOMEN: Soft, nontender. LABORATORY EXAMINATION: Reveals a white count of 5.8, hemoglobin of 10. Chemistries reveals a BUN of 2, creatinine of 0.5. Urinalysis is noted and urine culture is positive for ESBL E. coli. The blood cultures are negative. Review of orders reveals the patient to be off of antibiotics and Dr. Lon Pacheco, gastroenterology's note is reviewed. ASSESSMENT AND PLAN: This is a 68-year-old white female seen earlier today in 567, bed 1, awake and alert and with dry heaves with a history of multiple sclerosis, admitted to the ileus, found to have a cecal mass, on CT scan of the abdomen. 1. Scheduled for surgery today for possible right hemicolectomy. 2. The patient has asymptomatic bacteriuria with an extended-spectrum beta-lactamases Escherichia coli, no symptoms, does not require treatment, currently off of antibiotics. The patient is scheduled for right hemicolectomy this morning. We will follow with you. Kenn Goodrich MD
[2018-07-24] MEDS ORDERED: Propofol 10 mg/ml Inj (20 ML) ONE (10:41)
[2018-07-24] MEDS ORDERED: Midazolam 2 MG/2 ML VIAL ONE (10:42)
[2018-07-24] MEDS ORDERED: Succinylcholine 200 mg/10 ml Inj IV ONE (10:44)
[2018-07-24] MEDS ORDERED: Rocuronium 10 mg/ml (5 ml) ONE (10:45)
[2018-07-24] MEDS ORDERED: CeFAZolin 1 gm in NS 100ml IVPB ONE (11:00)
[2018-07-24] MEDS ORDERED: Phenylephrine 10 mg/ml Inj ONE (11:03)
[2018-07-24] MEDS ORDERED: MetroNIDAZOLE 500 mg/100 ml IVPB ONE (11:05)
[2018-07-24] MEDS ORDERED: metroNIDAZOLE IV 500 mg/100 ml 500 MG/100 ML BAG ONE (11:08)
--- NOTE | 2018-07-24 12:13 | CP.PCM.PN ---
<Darwin Robles - Last Filed: 07/24/18 12:10> Subjective - Date & Time of Evaluation Date of Evaluation: 07/24/18 Time of Evaluation: 06:00 - Subjective Subjective: Darwin Robles DO PGY1 Hospitalist Progress Note for Dr Sears Patient seen and examined at bedside. She reports nausea. Denies abdominal pain, vomiting. No acute events overnight. Going for R hemicolectomy surgery today Objective - Vital Signs/Intake and Output Vital Signs (last 24 hours): Temp Pulse Resp BP Pulse Ox 98.4 F 94 H 18 127/71 100 07/24/18 08:52 07/24/18 08:52 07/24/18 08:52 07/24/18 08:52 07/24/18 08:52 - Medications Medications: Current Medications Acetaminophen (Tylenol 325mg Tab) 650 mg PO Q6H PRN PRN Reason: Fever >100.4 F Acetaminophen (Tylenol 325 Mg Supp) 650 mg RC Q6H PRN PRN Reason: Fever >100.4 F Last Admin: 07/18/18 17:38 Dose: 650 mg Benzocaine/Menthol (Cepacol Sore Throat) 1 lester MT Q2H PRN PRN Reason: Sore Throat Last Admin: 07/23/18 21:59 Dose: 1 lester Enoxaparin Sodium (Lovenox) 30 mg SC DAILY [facility]; Protocol Last Admin: 07/23/18 10:41 Dose: 30 mg Sodium Chloride (Sodium Chloride 0.9%) 1,000 mls @ 75 mls/hr IV .[id number] [facility] Last Admin: 07/23/18 11:20 Dose: 75 mls/hr Potassium Chloride (Potassium Chloride 10 Meq/100 Ml) 10 meq in 100 mls @ 100 mls/hr IVPB Q2H [facility] Stop: 07/24/18 15:44 Metoprolol Tartrate (Lopressor) 25 mg PO BID [facility] Last Admin: 07/24/18 08:32 Dose: 25 mg Dalfampridine [ Ampyra] 10 Mg ( Home Med) 10 mg PO BID [facility] Last Admin: 07/23/18 18:39 Dose: 10 mg Ondansetron HCl (Zofran Inj) 4 mg IVP Q8H PRN PRN Reason: Nausea/Vomiting Last Admin: 07/24/18 02:43 Dose: 4 mg Oxybutynin Chloride (Ditropan Tab) 10 mg PO QID [facility] Last Admin: 07/23/18 21:59 Dose: 10 mg Pantoprazole Sodium (Protonix Inj) 40 mg IVP DAILY [facility] Last Admin: 07/23/18 10:42 Dose: 40 mg Polyethylene Glycol (Miralax) 17 gm PO BID [facility] Last Admin: 07/23/18 18:40 Dose: Not Given - Labs Labs: 07/24/18 06:40 07/24/18 06:40 PT 15.7 SECONDS (9.4-12.5) H 07/22/18 06:30 INR 1.39 07/22/18 06:30 APTT 27.8 Seconds (26.9-38.3) 07/17/18 13:51 - Additional Findings Additional findings: - Constitutional Appears: Well, Non-toxic - Head Exam Head Exam: ATRAUMATIC, NORMOCEPHALIC - Eye Exam Eye Exam: EOMI, Normal appearance, PERRL Pupil Exam: NORMAL ACCOMODATION, PERRL - ENT Exam ENT Exam: Mucous Membranes Moist - Neck Exam Neck Exam: Normal Inspection - Respiratory Exam Respiratory Exam: Clear to Ausculation Bilateral, NORMAL BREATHING PATTERN. absent: Rhonchi, Wheezes - Cardiovascular Exam Cardiovascular Exam: REGULAR RHYTHM, +S1, +S2. absent: JVD, RRR, Murmur - GI/Abdominal Exam GI & Abdominal Exam: Soft, Normal Bowel Sounds. absent: Tenderness - Extremities Exam Extremities Exam: Full ROM, Normal Capillary Refill, Normal Inspection. absent: Joint Swelling, Pedal Edema - Back Exam Back Exam: NORMAL INSPECTION - Neurological Exam Neurological Exam: Alert, Awake, CN II-XII Intact, Oriented x3 - Psychiatric Exam Psychiatric exam: Depressed, anxious - Skin Skin Exam: Dry, Normal Color, Warm Assessment and Plan - Assessment and Plan (Free Text) Assessment: 68 y/o female with PMH of MS presents with abdominal pain, nausea, NB vomiting. Found to have SBO with obstructive cecal mass. Schedule for surgery this am Plan: SBO with cecal mass: -scheduled for right hemicolectomy this am -hypokalemia notes. K repleted -NPO after midnight -admit to tele after surgery -serial abdominal xray did not show any improvement -CT A/P: dilated small bowel. liquid stool noted throughout small intestine and mix of hard stool and liquid noted in colon -patient evaluated by cardiology for cardiac risk stratification -Echo: LVEF 51.6%, LV function is borderline, normal LV wall thickness -RCRI-Reviced Cardiac Risk Stratification is 1% -continueIVF:NS@ 75 cc/hr -continue zofran, protonix -GI following Dr Pacheco -surgery on board, Dr Sanabria h/o multiple sclerosis: -continue home med ampyra -patient uses wheelchair/walker at home Asymptomatic ESBL: -Ucx: + ESBL, no abx needed PPX: DVT: SCD GI: protonix PT: recommended TCU upon d/c Case reviewed and plan discussed with attending Dr Orion Robles, DO <Shelly Sears R - Last Filed: 07/25/18 12:14> Objective - Vital Signs/Intake and Output Vital Signs (last 24 hours): Temp Pulse Resp BP Pulse Ox 98.2 F 110 H 18 147/81 95 07/25/18 06:00 07/25/18 09:11 07/25/18 06:00 07/25/18 09:11 07/25/18 06:00 Intake and Output: 07/25/18 07/25/18 06:59 18:59 Intake Total 0 Output Total 1150 Balance -1150 - Medications Medications: Current Medications Acetaminophen (Tylenol 325mg Tab) 650 mg PO Q6H PRN PRN Reason: Fever >100.4 F Acetaminophen (Tylenol 325 Mg Supp) 650 mg RC Q6H PRN PRN Reason: Fever >100.4 F Last Admin: 07/18/18 17:38 Dose: 650 mg Benzocaine/Menthol (Cepacol Sore Throat) 1 lester MT Q2H PRN PRN Reason: Sore Throat Last Admin: 07/24/18 18:19 Dose: 1 lester Enoxaparin Sodium (Lovenox) 30 mg SC DAILY [facility]; Protocol Last Admin: 07/25/18 09:10 Dose: 30 mg Hydromorphone HCl (Dilaudid) 0.5 mg IVP Q4H PRN PRN Reason: Pain, severe (8-10) Last Admin: 07/25/18 02:54 Dose: 0.5 mg Hydromorphone HCl (Dilaudid) 0.5 mg IVP Q15M PRN PRN Reason: Pain, Moderate/Severe (4-10) Sodium Chloride (Sodium Chloride 0.9%) 1,000 mls @ 75 mls/hr IV .[id number] [facility] Last Admin: 07/25/18 06:04 Dose: 75 mls/hr Metronidazole (Flagyl) 500 mg in 100 mls @ 100 mls/hr IVPB Q8 [facility]; Protocol Last Admin: 07/25/18 10:07 Dose: 100 mls/hr Cefepime HCl (Maxipime 1gm) 1 gm in 100 mls @ 100 mls/hr IVPB Q8 [facility]; Protocol Stop: 08/02/18 10:16 Metoprolol Tartrate (Lopressor) 25 mg PO BID [facility] Last Admin: 07/25/18 09:11 Dose: 25 mg Dalfampridine [ Ampyra] 10 Mg ( Home Med) 10 mg PO BID [facility] Last Admin: 07/25/18 09:10 Dose: 10 mg Ondansetron HCl (Zofran Inj) 4 mg IVP Q4 PRN PRN Reason: Nausea/Vomiting Last Admin: 07/25/18 08:48 Dose: 4 mg Oxybutynin Chloride (Ditropan Tab) 10 mg PO QID [facility] Last Admin: 07/25/18 09:10 Dose: 10 mg Pantoprazole Sodium (Protonix Inj) 40 mg IVP DAILY [facility] Last Admin: 07/25/18 09:10 Dose: 40 mg - Labs Labs: 07/25/18 06:00 07/25/18 06:00 PT 15.7 SECONDS (9.4-12.5) H 07/22/18 06:30 INR 1.39 07/22/18 06:30 APTT 27.8 Seconds (26.9-38.3) 07/17/18 13:51 Attending/Attestation - Attestation I have personally seen and examined this patient.: Yes I have fully participated in the care of the patient.: Yes I have reviewed all pertinent clinical information, including history, physical exam and plan: Yes Notes (Text): Patient seen and examined by me with resident at approximately 4PM on 07/24/18. Case including HPI, physical exam, and assessment and plan discussed with rafat barlow. Agree with above with following additions/corrections. Patient states is post op. States she is having a hard time catching her breath. Also is having abdominal pain more around incision. Denies current nausea or vomiting. No dysuria or burning with urination. No headaches or dizziness. No fevers or chills. No chest pain or palpitations. Physical exam: General: Awake and alert lying in bed in no acute distress HEENT: Normocephalic, atraumatic. Extraocular muscles intact. Pupils equal and reactive, no scleral icterus. Oropharynx is pink. Positive dry mucous membranes. Neck is supple. Cardiovascular: Normal rhythm. Normal S1 and S2. No murmurs, rubs, or gallops appreciated Pulmonary: Normal respiratory effort. No rhonchi, rales, or wheezing appreciated. Gastrointestinal: Soft, mild distention. Generalized tenderness. Dressing clean, dry, and intact. Positive hypoactive bowel sounds all 4 quadrants. No guarding. Musculoskeletal: Moves all extremities. No calf tenderness. No edema appreciated. Central nervous system: AAO X 3. Dermatologic: Skin warm and dry. Assessment and plan: Patient is a 68 year old female with history of multiple sclerosis that presented to the emergency room with nausea, vomiting, and abdominal pain. 1. Annular cecal lesion, partial obstruction. S/P exploratory laparotomy and right hemicolectomy for right colon mass and dilated small and large bowel today. Continue with pain management. Encourage incentive spirometer. Monitor for return of bowel function. Pending path results. Care as per surgical team. CT abd/pelvis 07/21/18 per radiologist showed no significant change in the pattern of diffusely dilated small bowel loops, there is an annular lesion at the junction of the cecum and ascending colon which is producing partial obstruction; below this level, the cecum is dilated and filled with fluid; above this level, the colon is essentially collapsed and contains more dense contrast and fecal material. 2. Nausea and vomiting. Continue Zofran as needed. 3. Fecal retention. Resolved for now. Continue to monitor. 4. ESBL UTI. ID recommendations appreciated. Patient asymptomatic. No antibiotic treatment indicated per ID. Continue contact isolation. 5. Multiple Scelerosis. Continue Ampyra. 6. Overactive bladder. Continue oxybutynin 7. Patient is a full code. Case was discussed in detail with the patient regarding current diagnosis, study results, and treatment plan. All questions answered.
[2018-07-24] MEDS ORDERED: Acetaminophen IV IVPB ONE (12:40)
[2018-07-24] MEDS ORDERED: Neostigmine Methylsulfate 3mg/3ml Syringe IV ONE (12:44)
[2018-07-24] MEDS ORDERED: Glycopyrrolate 0.2 mg/ml (2ml vial) ONE (12:45)
--- NOTE | 2018-07-24 12:56 | PCM.SURG1 ---
Surgeon's Initial Post Op Note - Surgeon's Notes Surgeon: MD El[employer] Teacher: Cheryl PGY3. PGY4. Simran Avina, MS3 Pre-Operative Diagnosis: Right colon mass Operative Findings: right colon mass, dilated small and large bowel Post-Operative Diagnosis: Right colon mass Operation Performed: Exploratory Laparotomy, right hemicolectomy Specimen/Specimens Removed: right colon Estimated Blood Loss: EBL {In ML}: 50 Date of Surgery/Procedure: 07/24/18 Time of Surgery/Procedure: 11:00
[2018-07-24] MEDS ORDERED: HYDROmorphone 0.5 mg/0.5 ml ISec IVP PRN (13:02)
[2018-07-24] MEDS ORDERED: Lactated Ringer's 1,000 ML IV SCH (13:15)
[2018-07-24] MEDS ORDERED: HYDROmorphone 0.5 mg/0.5 ml ISec ONE (14:30)
[2018-07-24] MEDS: DALFAMPRIDINE 10 MG PO SCH ×2 (17:59→18:00)
[2018-07-24] MEDS: POLYETHYLENE GLYCOL 3350 17 GM/Dose PACKET PO SCH ×2 (18:03→18:04)
[2018-07-24] MEDS: HYDROmorphone 0.5 mg/0.5 ml ISec IVP PRN ×2 (18:19→22:34)
[2018-07-24] MEDS: Benzocaine/Menthol (Cepacol) Lozenge MT PRN (18:19)
[2018-07-25] MEDS: HYDROmorphone 0.5 mg/0.5 ml ISec IVP PRN ×2 (02:54→14:49)
--- NOTE | 2018-07-25 03:01 | CP.PCM.PN ---
Subjective - Date & Time of Evaluation Date of Evaluation: 07/25/18 Time of Evaluation: 02:57 - Subjective Subjective: SURGERY NOTE FOR DR. MELENDREZ 68F seen and examine at bedside. Patient testing comfortably, denies abdominal pain, currently denies nausea, fevers. Get anxious at times. UO 33cc/hr average in last 9 hours. Objective - Vital Signs/Intake and Output Vital Signs (last 24 hours): Temp Pulse Resp BP Pulse Ox 98.4 F 100 H 15 142/87 99 07/24/18 15:30 07/24/18 18:01 07/24/18 15:30 07/24/18 18:01 07/24/18 15:30 Intake and Output: 07/24/18 07/25/18 18:59 06:59 Intake Total 375 0 Output Total 350 600 Balance 25 -600 - Medications Medications: Current Medications Acetaminophen (Tylenol 325mg Tab) 650 mg PO Q6H PRN PRN Reason: Fever >100.4 F Acetaminophen (Tylenol 325 Mg Supp) 650 mg RC Q6H PRN PRN Reason: Fever >100.4 F Last Admin: 07/18/18 17:38 Dose: 650 mg Benzocaine/Menthol (Cepacol Sore Throat) 1 lester MT Q2H PRN PRN Reason: Sore Throat Last Admin: 07/24/18 18:19 Dose: 1 lester Enoxaparin Sodium (Lovenox) 30 mg SC DAILY [facility]; Protocol Last Admin: 07/23/18 10:41 Dose: 30 mg Hydromorphone HCl (Dilaudid) 0.5 mg IVP Q4H PRN PRN Reason: Pain, severe (8-10) Last Admin: 07/25/18 02:54 Dose: 0.5 mg Hydromorphone HCl (Dilaudid) 0.5 mg IVP Q15M PRN PRN Reason: Pain, Moderate/Severe (4-10) Sodium Chloride (Sodium Chloride 0.9%) 1,000 mls @ 75 mls/hr IV .[id number] [facility] Last Admin: 07/23/18 11:20 Dose: 75 mls/hr Metoprolol Tartrate (Lopressor) 25 mg PO BID [facility] Last Admin: 07/24/18 18:01 Dose: 25 mg Dalfampridine [ Ampyra] 10 Mg ( Home Med) 10 mg PO BID [facility] Last Admin: 07/24/18 18:00 Dose: 10 mg Ondansetron HCl (Zofran Inj) 4 mg IVP Q8H PRN PRN Reason: Nausea/Vomiting Last Admin: 07/24/18 02:43 Dose: 4 mg Oxybutynin Chloride (Ditropan Tab) 10 mg PO QID [facility] Last Admin: 07/24/18 22:34 Dose: 10 mg Pantoprazole Sodium (Protonix Inj) 40 mg IVP DAILY [facility] Last Admin: 07/24/18 18:05 Dose: 40 mg Polyethylene Glycol (Miralax) 17 gm PO BID [facility] Last Admin: 07/24/18 18:04 Dose: Not Given - Labs Labs: 07/24/18 06:40 07/24/18 06:40 PT 15.7 SECONDS (9.4-12.5) H 07/22/18 06:30 INR 1.39 07/22/18 06:30 APTT 27.8 Seconds (26.9-38.3) 07/17/18 13:51 - Constitutional Appears: Non-toxic, No Acute Distress - Respiratory Exam Respiratory Exam: Clear to Ausculation Bilateral, NORMAL BREATHING PATTERN - Cardiovascular Exam Cardiovascular Exam: REGULAR RHYTHM, +S1, +S2 - GI/Abdominal Exam GI & Abdominal Exam: Soft. absent: Distended, Firm, Guarding, Rigid, Tenderness, Rebound Additional comments: dressing clean dry intact - Extremities Exam Extremities Exam: absent: Pedal Edema, Tenderness - Neurological Exam Neurological Exam: Alert, Awake - Skin Skin Exam: Dry, Intact, Normal Color, Warm Assessment and Plan - Assessment and Plan (Free Text) Assessment: 68F with cecal mass is s/p right hemicolectomy POD#1 Plan: - Liquid diet - IVF - Monitor urine UO goal 35cc>/hr - AM labs - DC lugo in AM - Out of bed/Ambulating - Physical therapy - Incentive spirometer Further recs per Dr. Elly Luna, PGY3
--- NOTE | 2018-07-25 04:10 | CP.PCM.PCO ---
Addendum Addendum: 07/25/18 04:02 Patient awoken from sleep during physical, exam expresses concern of sensation of difficultly breathing, admitted to back pain same as prior night before surgery likely from uncomfortable bed, states nausea was improving. Patient had a similar episode last night. She denies chest pain. She sat up in bed for few minutes, states she felt somewhat better. Admits to feeling anxious which is baseline most times. Patient voice hoarse since OR. No desaturation episodes, Sats in high 90s. - Lungs clear, Heart - RRR, Abd - soft, NT, ND, dressing CDI Plan - decrease interval of Zofran, dose of reglan and xanax, monitor vitals, monitor hoarseness for improvement
[2018-07-25] MEDS: Sodium Chloride 0.9% 1,000 ML IV SCH (06:04)
[2018-07-25 07:38] LABS: ALT/SGPT 44 U/L (7-56)
[2018-07-25 07:52] LABS: BASO # 0.05 K/mm3 (0.0-2.0); BASO % 0.3 % (0.0-3.0); EOS # 0.1 (0.0-0.7); EOS % 0.4 % (1.5-5.0); HEMOGLOBIN 11.5 g/dL (12.0-16.0); LYMPH # 2.4 (1.2-3.4); LYMPH % 13.5 % (22.0-35.0); MEAN CELL VOLUME 90.3 fl (80.0-105.0); MEAN CORPUSCULAR HEMOGLOBIN 28.8 pg (25.0-35.0); MEAN CORPUSCULAR HGB CONC 31.9 g/dl (31.0-37.0); MONO # 1.2 (0.1-0.6); MONO % 6.4 % (1.0-6.0); RED CELL DISTRIBUTION WIDTH 15.5 % (11.5-14.5); WHITE BLOOD COUNT 17.8 10^3/uL (4.5-11.0)
[2018-07-25 07:59] LABS: ALB/GLOB RATIO 1.2 (1.1-1.8); ALBUMIN 2.9 g/dL (3.0-4.8); AST/SGOT 39 U/L (14-36); BLOOD UREA NITROGEN 5 mg/dL (7-21); CALCIUM 8.4 mg/dL (8.4-10.5); GFR NON-AFRICAN AMERICAN > 60
[2018-07-25] MEDS: Enoxaparin 30 mg Syringe SC SCH (09:10)
[2018-07-25] MEDS: DALFAMPRIDINE 10 MG PO SCH ×2 (09:10→17:53)
[2018-07-25] MEDS ORDERED: levoFLOXacin 500 mg in D5W 500 MG/100 ML BAG IVPB SCH (10:00)
[2018-07-25] MEDS: metroNIDAZOLE IV 500 mg/100 ml 500 MG/100 ML BAG IVPB SCH ×3 (10:07→22:57)
--- NOTE | 2018-07-25 11:15 | RAD ---
Date of service: 07/25/2018 HISTORY: wbc of 20k COMPARISON: Chest radiograph dated 07/19/2018. TECHNIQUE: 1 view obtained. FINDINGS: LUNGS: Bibasilar atelectasis, improved. PLEURA: Questionable small left pleural effusion. No appreciable pneumothorax. CARDIOVASCULAR: Aortic atherosclerotic calcifications. Cardiomediastinal silhouette within normal limits. OSSEOUS STRUCTURES: Unchanged. VISUALIZED UPPER ABDOMEN: Partially imaged midline abdominal surgical clips. OTHER FINDINGS: Removal of enteric tube. IMPRESSION: Improved bibasilar atelectasis. Removal of enteric tube. Questionable small left pleural effusion.
--- NOTE | 2018-07-25 12:02 | PN ---
DATE: 07/25/2018 SUBJECTIVE: The patient is in bed in no acute distress, nontoxic. PHYSICAL EXAMINATION: VITAL SIGNS: On exam, temperature is 98, blood pressure is 140/80, respiratory rate of 18, heart rate of 110. HEENT: Unremarkable. NECK: Supple. HEART: Normal S1, S2. LUNGS: Have decreased breath sounds. ABDOMEN: Soft. LABORATORY DATA: Reveals a white count is up to 17,800, hemoglobin of 11, BUN of 5, creatinine of 0.6. Urinalysis is noted. Blood cultures are negative. Urine cultures has ESBL. Review of orders reveals the patient to be on Dilaudid. The patient to be on Flagyl IV. The patient's events are noted. Dr. Dangelo's progress note is reviewed. Cecal mass status post right hemicolectomy on postop day #1. Operative note from yesterday is reviewed.. Exploratory laparotomy and right hemicolectomy. ASSESSMENT AND PLAN: This is a 68-year-old female with history of multiple sclerosis who was found to have admitted with ileus, found to have a cecal mass on CAT scan, now status post right hemicolectomy on postop day #1 with leukocytosis and tachycardia, systemic inflammatory response syndrome and a patient who has extended-spectrum beta-lactamase Escherichia coli, asymptomatic bacteriuria. We will repeat pancultures, blood cultures, urine cultures and sputum culture, and we will order a procalcitonin. We will add Maxipime and Flagyl. We will make further recommendations. Pending pancultures and with a new systemic inflammatory response syndrome on postop day #1. White count of 17,800 on postop day #1 and tachycardia. We will discontinue the Levaquin with higher resistance of Escherichia coli to quinolones. Kenn Goodrich MD
[2018-07-25 13:17] LABS: URINE BILIRUBIN SMALL (NEGATIVE); URINE BLOOD NEGATIVE (NEGATIVE); URINE GLUCOSE (UA) NEGATIVE (NEGATIVE); URINE LEUKOCYTE ESTERASE NEGATIVE Leu/uL (NEGATIVE); URINE PROTEIN NEGATIVE mg/dL (<30 mg/dL); URINE UROBILINOGEN 0.2 E.U./dL (<1 E.U./dL)
[2018-07-25 13:19] LABS: URINE APPEARANCE CLEAR (CLEAR); URINE COLOR YELLOW (YELLOW)
[2018-07-25] MEDS: Cefepime 1gm in NS 100ml 1 GM/100 ML BAG IVPB SCH ×3 (13:59→21:02)
--- NOTE | 2018-07-25 14:12 | PN ---
DATE: 07/25/2018 REASON FOR DICTATION: Covering Dr. Gonzales. REASON FOR CONSULTATION: Preop evaluation and postop followup, status post right hemicolectomy; cardiac close followup. SUBJECTIVE: The patient denies any chest pain, shortness of breath, or any palpitation, but feels very nauseous and has very nauseous. PHYSICAL EXAMINATION: As follows; VITAL SIGNS: Temperature afebrile, heart rate 110, and blood pressure 147/81. HEENT: PERRLA. Extraocular muscles intact. NECK: Supple. No carotid bruits or thyromegaly. CHEST: Clear to auscultation. HEART: S1 and S2 regular. ABDOMEN: Soft. EXTREMITIES: Clubbing and cyanosis negative. LABORATORY DATA: Blood workup as follows; WBC 17.8, hemoglobin 9.5, hematocrit 36.1, and platelet count 418. Chemistry shows sodium 136, potassium 4.7, chloride 105, carbon dioxide 24, anion gap of 13, BUN and creatinine 0.6. IMPRESSION: A 68-year-old female, with no significant past medical history except history of multiple sclerosis since 1982, admitted with acute abdominal discomfort status post right hemicolectomy postoperative, legally blind, who had right hemicolectomy done, now feels nauseous. Recently echocardiogram done on 07/23/2018 that shows borderline left ventricular function and normal segmental wall motion. There is a trace to mild aortic regurgitation. Postoperative patient feels nauseous. RECOMMENDATIONS: We will give Zofran. Continue perioperative beta matti. Continue DVT prophylaxis. CVA status is stable. We will follow with you and transfer care on Friday to Dr. Gonzales. Micki Cordero MD
--- NOTE | 2018-07-25 15:54 | CP.PCM.PN ---
<Rusty Sears - Last Filed: 07/25/18 16:27> Subjective - Date & Time of Evaluation Date of Evaluation: 07/25/18 Time of Evaluation: 09:00 - Subjective Subjective: Rusty Sears DO PGY1 - Medicine Progress Note Patient was seen and examined this morning at bedside; POD#1 s/p R hemicolectomy Overnight patient c/o nausea + sob; evaluated by surgical team Patient had BM this AM ; Denies any fevers/ chills overnight No complaints of sob/ cp on exam today ; does report some abdominal tenderness and nausea on examination. Objective - Vital Signs/Intake and Output Vital Signs (last 24 hours): Temp Pulse Resp BP Pulse Ox 98.4 F 111 H 18 140/84 96 07/25/18 14:00 07/25/18 14:00 07/25/18 14:00 07/25/18 14:00 07/25/18 14:00 Intake and Output: 07/25/18 07/25/18 06:59 18:59 Intake Total 0 Output Total 1150 Balance -1150 - Medications Medications: Current Medications Acetaminophen (Tylenol 325mg Tab) 650 mg PO Q6H PRN PRN Reason: Fever >100.4 F Acetaminophen (Tylenol 325 Mg Supp) 650 mg RC Q6H PRN PRN Reason: Fever >100.4 F Last Admin: 07/18/18 17:38 Dose: 650 mg Benzocaine/Menthol (Cepacol Sore Throat) 1 lester MT Q2H PRN PRN Reason: Sore Throat Last Admin: 07/24/18 18:19 Dose: 1 lester Enoxaparin Sodium (Lovenox) 30 mg SC DAILY [facility]; Protocol Last Admin: 07/25/18 09:10 Dose: 30 mg Hydromorphone HCl (Dilaudid) 0.5 mg IVP Q4H PRN PRN Reason: Pain, severe (8-10) Last Admin: 07/25/18 14:49 Dose: 0.5 mg Hydromorphone HCl (Dilaudid) 0.5 mg IVP Q15M PRN PRN Reason: Pain, Moderate/Severe (4-10) Sodium Chloride (Sodium Chloride 0.9%) 1,000 mls @ 75 mls/hr IV .[id number] [facility] Last Admin: 07/25/18 06:04 Dose: 75 mls/hr Metronidazole (Flagyl) 500 mg in 100 mls @ 100 mls/hr IVPB Q8 [facility]; Protocol Last Admin: 07/25/18 14:00 Dose: 100 mls/hr Cefepime HCl (Maxipime 1gm) 1 gm in 100 mls @ 100 mls/hr IVPB Q8 [facility]; Protocol Stop: 08/02/18 10:16 Last Admin: 07/25/18 13:59 Dose: 100 mls/hr Metoprolol Tartrate (Lopressor) 25 mg PO BID [facility] Last Admin: 07/25/18 09:11 Dose: 25 mg Dalfampridine [ Ampyra] 10 Mg ( Home Med) 10 mg PO BID [facility] Last Admin: 07/25/18 09:10 Dose: 10 mg Ondansetron HCl (Zofran Inj) 4 mg IVP Q4 PRN PRN Reason: Nausea/Vomiting Last Admin: 07/25/18 08:48 Dose: 4 mg Oxybutynin Chloride (Ditropan Tab) 10 mg PO QID [facility] Last Admin: 07/25/18 13:59 Dose: 10 mg Pantoprazole Sodium (Protonix Inj) 40 mg IVP DAILY [facility] Last Admin: 07/25/18 09:10 Dose: 40 mg - Labs Labs: 07/25/18 06:00 07/25/18 06:00 PT 15.7 SECONDS (9.4-12.5) H 07/22/18 06:30 INR 1.39 07/22/18 06:30 APTT 27.8 Seconds (26.9-38.3) 07/17/18 13:51 - Constitutional Appears: Well, Non-toxic, No Acute Distress - Head Exam Head Exam: ATRAUMATIC, NORMOCEPHALIC - Eye Exam Eye Exam: EOMI, PERRL - ENT Exam ENT Exam: Mucous Membranes Moist, Normal Exam - Respiratory Exam Respiratory Exam: Clear to Ausculation Bilateral, NORMAL BREATHING PATTERN - Cardiovascular Exam Cardiovascular Exam: RRR. absent: Murmur - GI/Abdominal Exam GI & Abdominal Exam: Soft Additional comments: mild post operative tenderness distended midline dressing; CDI - Extremities Exam Extremities Exam: Normal Capillary Refill. absent: Pedal Edema - Neurological Exam Neurological Exam: Alert, Awake, Oriented x3 - Psychiatric Exam Psychiatric exam: Normal Affect, Normal Mood - Skin Skin Exam: Dry, Intact, Warm Assessment and Plan - Assessment and Plan (Free Text) Assessment: 68F w/ a PMH of MS presented to [facility] on 07/18 w/ c/o N/V Abd pain admitted for initially for ileus 2/2 enteritis as per CTAP; Noted to have partial bowel obstruction on repeat imaging; patient is s/p R hemicolectomy 07/25 Plan: Partial Bowel Obstx: 07/21 CTAP Partial Bowel Obstruction of cecum + Ascending colon S/P R hemicolectomy on 07/25 - Noted to have significant mass Post op care as per surgery: Analgesia; Antiemtics; Wound Care Out of bed to chair incentive spirometer use having BM; ADAT PT Eval declined ; will re-eval tommorrow GI Following; Junior Surgery Following; [place] Leukocytosis - Reactive / Postoperative vs SIRS Cefepime/ Flagyl as per ID Septic workup pending ID Following, Appreciate Reccs Colon Mass Follow up OR path Heme/Onc - Dr. Tariq Rowe consulted, appreciate reccs Multiple Hepatic Cyst Triple phase CT once stable GI Following appreciate reccs Hx multiple sclerosis: C/w Ampyra Straight cath TID Asymptomatic ESBL: Ucx: + ESBL, no abx needed PPX: DVT: SCD GI: protonix Disposition: Continued Postoperative management on med/surg; POD#1 s/p R sided hemicolectomy; Will need to establish care w/ heme/onc regarding colon mass found in OR Patient seen, examined, discussed w/ attending Dr. Shelly Sears DO PGy1 - Internal Medicine Candy Dipper <Shelly Sears R - Last Filed: 07/25/18 17:28> Objective - Vital Signs/Intake and Output Vital Signs (last 24 hours): Temp Pulse Resp BP Pulse Ox 98.4 F 111 H 18 140/84 96 07/25/18 14:00 07/25/18 14:00 07/25/18 14:00 07/25/18 14:00 07/25/18 14:00 Intake and Output: 07/25/18 07/25/18 06:59 18:59 Intake Total 0 Output Total 1150 Balance -1150 - Medications Medications: Current Medications Acetaminophen (Tylenol 325mg Tab) 650 mg PO Q6H PRN PRN Reason: Fever >100.4 F Acetaminophen (Tylenol 325 Mg Supp) 650 mg RC Q6H PRN PRN Reason: Fever >100.4 F Last Admin: 07/18/18 17:38 Dose: 650 mg Benzocaine/Menthol (Cepacol Sore Throat) 1 lester MT Q2H PRN PRN Reason: Sore Throat Last Admin: 07/24/18 18:19 Dose: 1 lester Enoxaparin Sodium (Lovenox) 30 mg SC DAILY [facility]; Protocol Last Admin: 07/25/18 09:10 Dose: 30 mg Hydromorphone HCl (Dilaudid) 0.5 mg IVP Q4H PRN PRN Reason: Pain, severe (8-10) Last Admin: 07/25/18 14:49 Dose: 0.5 mg Hydromorphone HCl (Dilaudid) 0.5 mg IVP Q15M PRN PRN Reason: Pain, Moderate/Severe (4-10) Metronidazole (Flagyl) 500 mg in 100 mls @ 100 mls/hr IVPB Q8 [facility]; Protocol Last Admin: 07/25/18 14:00 Dose: 100 mls/hr Cefepime HCl (Maxipime 1gm) 1 gm in 100 mls @ 100 mls/hr IVPB Q8 [facility]; Protocol Stop: 08/02/18 10:16 Last Admin: 07/25/18 16:34 Dose: 100 mls/hr Metoprolol Tartrate (Lopressor) 25 mg PO BID [facility] Last Admin: 07/25/18 09:11 Dose: 25 mg Dalfampridine [ Ampyra] 10 Mg ( Home Med) 10 mg PO BID [facility] Last Admin: 07/25/18 09:10 Dose: 10 mg Ondansetron HCl (Zofran Inj) 4 mg IVP Q4 PRN PRN Reason: Nausea/Vomiting Last Admin: 07/25/18 08:48 Dose: 4 mg Oxybutynin Chloride (Ditropan Tab) 10 mg PO QID [facility] Last Admin: 07/25/18 13:59 Dose: 10 mg Pantoprazole Sodium (Protonix Inj) 40 mg IVP DAILY [facility] Last Admin: 07/25/18 09:10 Dose: 40 mg - Labs Labs: 07/25/18 06:00 07/25/18 06:00 PT 15.7 SECONDS (9.4-12.5) H 07/22/18 06:30 INR 1.39 07/22/18 06:30 APTT 27.8 Seconds (26.9-38.3) 07/17/18 13:51 Attending/Attestation - Attestation I have personally seen and examined this patient.: Yes I have fully participated in the care of the patient.: Yes I have reviewed all pertinent clinical information, including history, physical exam and plan: Yes Notes (Text): Patient seen and examined by me with resident at approximately 9:55AM on 07/25/18. Case including HPI, physical exam, and assessment and plan discussed with resident. Agree with above with following additions/corrections. Patient states "I have had better days." Patient states she feels nauseous. Patient attempting to eat. Patient also with "liquid" bowel movement this morning. Abdominal pain has improved. Patient denies chest pain or palpitations. Still with episodes of "feeling like I can't cant my breath." No dysuria or burning with urination. No headaches or dizziness. No fevers or chills. Physical exam: General: Awake and alert lying in bed in no acute distress HEENT: Normocephalic, atraumatic. Extraocular muscles intact. Pupils equal and reactive, no scleral icterus. Oropharynx is pink. Positive dry mucous membranes. Neck is supple. Cardiovascular: Normal rhythm. Normal S1 and S2. No murmurs, rubs, or gallops appreciated Pulmonary: Normal respiratory effort. No rhonchi, rales, or wheezing appreciated. Gastrointestinal: Soft, mild distention. Generalized tenderness. Dressing clean, dry, and intact. Positive bowel sounds all 4 quadrants. No guarding. Musculoskeletal: Moves all extremities. No calf tenderness. No edema appreciated. Central nervous system: AAO X 3. Dermatologic: Skin warm and dry. Assessment and plan: Patient is a 68 year old female with history of multiple sclerosis that presented to the emergency room with nausea, vomiting, and abdominal pain. 1. Annular cecal lesion, partial obstruction. S/P exploratory laparotomy and right hemicolectomy for right colon mass and dilated small and large bowel 07/24/18. Continue with pain management. Encourage incentive spirometer. Patient with bowel movement today. Pending path results. Care as per surgical team. Hem/onc consulted, pending recommendations. CT abd/pelvis 07/21/18 per radiologist showed no significant change in the pattern of diffusely dilated small bowel loops, there is an annular lesion at the junction of the cecum and ascending colon which is producing partial obstruction; below this level, the cecum is dilated and filled with fluid; above this level, the colon is essentially collapsed and contains more dense contrast and fecal material. 2. Nausea and vomiting. Continue Zofran as needed. 3. SIRS. Leukocytosis. Tachycardia. May be secondary to surgery yesterday. Urine culture was positive for ESBL but patient asymptomatic. ID recommendations appreciated. Repeat cultures ordered. Follow up procalictonin. Started on Cefepime and Flagyl. 4. Hepatic cysts. Triple phase liver CT at later time per GI. GI recommendations appreciated. 5. Multiple Scelerosis. Continue Ampyra. 6. Overactive bladder. Continue oxybutynin 7. Fecal retention. Resolved. Continue to monitor. 8. Patient is a full code. Case was discussed in detail with the patient regarding current diagnosis, study results, and treatment plan. All questions answered.
--- NOTE | 2018-07-25 16:41 | CP.PCM.PN ---
<Alejandro Yo - Last Filed: 07/25/18 16:42> Subjective - Date & Time of Evaluation Date of Evaluation: 07/25/18 Time of Evaluation: 15:20 - Subjective Subjective: PGY-4 GI Fellow Prog Note Pt lying in bed when seen this PM. States feeling tired without other complaints. Had BM earlier in day. 5 point ROS negative other than stated above Objective - Vital Signs/Intake and Output Vital Signs (last 24 hours): Temp Pulse Resp BP Pulse Ox 98.4 F 111 H 18 140/84 96 07/25/18 14:00 07/25/18 14:00 07/25/18 14:00 07/25/18 14:00 07/25/18 14:00 Intake and Output: 07/25/18 07/25/18 06:59 18:59 Intake Total 0 Output Total 1150 Balance -1150 - Medications Medications: Current Medications Acetaminophen (Tylenol 325mg Tab) 650 mg PO Q6H PRN PRN Reason: Fever >100.4 F Acetaminophen (Tylenol 325 Mg Supp) 650 mg RC Q6H PRN PRN Reason: Fever >100.4 F Last Admin: 07/18/18 17:38 Dose: 650 mg Benzocaine/Menthol (Cepacol Sore Throat) 1 lester MT Q2H PRN PRN Reason: Sore Throat Last Admin: 07/24/18 18:19 Dose: 1 lester Enoxaparin Sodium (Lovenox) 30 mg SC DAILY [facility]; Protocol Last Admin: 07/25/18 09:10 Dose: 30 mg Hydromorphone HCl (Dilaudid) 0.5 mg IVP Q4H PRN PRN Reason: Pain, severe (8-10) Last Admin: 07/25/18 14:49 Dose: 0.5 mg Hydromorphone HCl (Dilaudid) 0.5 mg IVP Q15M PRN PRN Reason: Pain, Moderate/Severe (4-10) Sodium Chloride (Sodium Chloride 0.9%) 1,000 mls @ 75 mls/hr IV .[id number] [facility] Last Admin: 07/25/18 06:04 Dose: 75 mls/hr Metronidazole (Flagyl) 500 mg in 100 mls @ 100 mls/hr IVPB Q8 [facility]; Protocol Last Admin: 07/25/18 14:00 Dose: 100 mls/hr Cefepime HCl (Maxipime 1gm) 1 gm in 100 mls @ 100 mls/hr IVPB Q8 [facility]; Protocol Stop: 08/02/18 10:16 Last Admin: 07/25/18 16:34 Dose: 100 mls/hr Metoprolol Tartrate (Lopressor) 25 mg PO BID [facility] Last Admin: 07/25/18 09:11 Dose: 25 mg Dalfampridine [ Ampyra] 10 Mg ( Home Med) 10 mg PO BID [facility] Last Admin: 07/25/18 09:10 Dose: 10 mg Ondansetron HCl (Zofran Inj) 4 mg IVP Q4 PRN PRN Reason: Nausea/Vomiting Last Admin: 07/25/18 08:48 Dose: 4 mg Oxybutynin Chloride (Ditropan Tab) 10 mg PO QID [facility] Last Admin: 07/25/18 13:59 Dose: 10 mg Pantoprazole Sodium (Protonix Inj) 40 mg IVP DAILY [facility] Last Admin: 07/25/18 09:10 Dose: 40 mg - Labs Labs: 07/25/18 06:00 07/25/18 06:00 PT 15.7 SECONDS (9.4-12.5) H 07/22/18 06:30 INR 1.39 07/22/18 06:30 APTT 27.8 Seconds (26.9-38.3) 07/17/18 13:51 - Constitutional Appears: Well, No Acute Distress - Head Exam Head Exam: ATRAUMATIC, NORMAL INSPECTION - Eye Exam Eye Exam: EOMI. absent: Scleral icterus - ENT Exam ENT Exam: Mucous Membranes Dry. absent: Mucous Membranes Moist - Respiratory Exam Respiratory Exam: NORMAL BREATHING PATTERN. absent: Accessory Muscle Use - GI/Abdominal Exam GI & Abdominal Exam: Distended (mildly), Soft. absent: Firm, Guarding, Rigid, Tenderness Additional comments: midline dressing in place w/o surrounding erythema Assessment and Plan - Assessment and Plan (Free Text) Assessment: 68 year old female with PMH of Multiple Sclerosis presenting with abdominal pain, nausea, and vomiting. Active treatment of partial bowel obstruction at junction of cecum and ascending colon confirmed on CT A/P PO contrast. No prior EGD or colonoscopy. Plan: - POD#1 R hemicolectomy with cecal mass removed, path pending - Diet per surgery - CEA 1.2 pre-op - Consider triple phase liver CT at later time Pt seen and examined with Dr. Pacheco; please see attestation for further recs/changes. <Lon Pacheco V - Last Filed: 07/25/18 18:51> Objective - Vital Signs/Intake and Output Vital Signs (last 24 hours): Temp Pulse Resp BP Pulse Ox 98.4 F 111 H 18 140/84 96 07/25/18 14:00 07/25/18 17:54 07/25/18 14:00 07/25/18 17:54 07/25/18 14:00 Intake and Output: 07/25/18 07/25/18 06:59 18:59 Intake Total 0 Output Total 1150 Balance -1150 - Medications Medications: Current Medications Acetaminophen (Tylenol 325mg Tab) 650 mg PO Q6H PRN PRN Reason: Fever >100.4 F Acetaminophen (Tylenol 325 Mg Supp) 650 mg RC Q6H PRN PRN Reason: Fever >100.4 F Last Admin: 07/18/18 17:38 Dose: 650 mg Benzocaine/Menthol (Cepacol Sore Throat) 1 lester MT Q2H PRN PRN Reason: Sore Throat Last Admin: 07/24/18 18:19 Dose: 1 lester Enoxaparin Sodium (Lovenox) 30 mg SC DAILY [facility]; Protocol Last Admin: 07/25/18 09:10 Dose: 30 mg Hydromorphone HCl (Dilaudid) 0.5 mg IVP Q4H PRN PRN Reason: Pain, severe (8-10) Last Admin: 07/25/18 14:49 Dose: 0.5 mg Hydromorphone HCl (Dilaudid) 0.5 mg IVP Q15M PRN PRN Reason: Pain, Moderate/Severe (4-10) Metronidazole (Flagyl) 500 mg in 100 mls @ 100 mls/hr IVPB Q8 [facility]; Protocol Last Admin: 07/25/18 14:00 Dose: 100 mls/hr Cefepime HCl (Maxipime 1gm) 1 gm in 100 mls @ 100 mls/hr IVPB Q8 [facility]; Protocol Stop: 08/02/18 10:16 Last Admin: 07/25/18 16:34 Dose: 100 mls/hr Metoprolol Tartrate (Lopressor) 25 mg PO BID [facility] Last Admin: 07/25/18 17:54 Dose: 25 mg Dalfampridine [ Ampyra] 10 Mg ( Home Med) 10 mg PO BID [facility] Last Admin: 07/25/18 17:53 Dose: 10 mg Ondansetron HCl (Zofran Inj) 4 mg IVP Q4 PRN PRN Reason: Nausea/Vomiting Last Admin: 07/25/18 08:48 Dose: 4 mg Oxybutynin Chloride (Ditropan Tab) 10 mg PO QID [facility] Last Admin: 07/25/18 17:53 Dose: 10 mg Pantoprazole Sodium (Protonix Inj) 40 mg IVP DAILY [facility] Last Admin: 07/25/18 09:10 Dose: 40 mg - Labs Labs: 07/25/18 06:00 07/25/18 06:00 PT 15.7 SECONDS (9.4-12.5) H 07/22/18 06:30 INR 1.39 07/22/18 06:30 APTT 27.8 Seconds (26.9-38.3) 07/17/18 13:51 Attending/Attestation - Attestation I have personally seen and examined this patient.: Yes I have fully participated in the care of the patient.: Yes I have reviewed all pertinent clinical information, including history, physical exam and plan: Yes Notes (Text): This is an addendum to the GI progress report dictated by the fellow. Patient w as seen and evaluated earlier. Passing flatus. Diet as per surgery. Follow-up with the pathology. 07/25/18 18:50
[2018-07-26] MEDS: metroNIDAZOLE IV 500 mg/100 ml 500 MG/100 ML BAG IVPB SCH ×3 (05:06→21:14)
[2018-07-26] MEDS: HYDROmorphone 0.5 mg/0.5 ml ISec IVP PRN ×3 (05:18→23:47)
[2018-07-26] MEDS: Cefepime 1gm in NS 100ml 1 GM/100 ML BAG IVPB SCH ×3 (06:20→21:13)
--- NOTE | 2018-07-26 07:34 | CP.PCM.PN ---
Subjective - Date & Time of Evaluation Date of Evaluation: 07/26/18 Time of Evaluation: 06:45 - Subjective Subjective: General Surgery Pt seen and examined. No acute events overnight. Pain controlled with meds, rated 2/10. Tolerated minimal CLD. Voiding. BM yesterday. Refused PT yesterday. Objective - Vital Signs/Intake and Output Vital Signs (last 24 hours): Temp Pulse Resp BP Pulse Ox 98.3 F 111 H 20 164/110 H 96 07/25/18 22:03 07/25/18 22:03 07/25/18 22:03 07/25/18 22:03 07/25/18 22:03 Intake and Output: 07/26/18 07/26/18 06:59 18:59 Intake Total 240 Output Total 100 Balance 140 - Medications Medications: Current Medications Acetaminophen (Tylenol 325mg Tab) 650 mg PO Q6H PRN PRN Reason: Fever >100.4 F Acetaminophen (Tylenol 325 Mg Supp) 650 mg RC Q6H PRN PRN Reason: Fever >100.4 F Last Admin: 07/18/18 17:38 Dose: 650 mg Benzocaine/Menthol (Cepacol Sore Throat) 1 lester MT Q2H PRN PRN Reason: Sore Throat Last Admin: 07/24/18 18:19 Dose: 1 lester Enoxaparin Sodium (Lovenox) 30 mg SC DAILY [facility]; Protocol Last Admin: 07/25/18 09:10 Dose: 30 mg Hydromorphone HCl (Dilaudid) 0.5 mg IVP Q4H PRN PRN Reason: Pain, severe (8-10) Last Admin: 07/26/18 05:18 Dose: 0.5 mg Hydromorphone HCl (Dilaudid) 0.5 mg IVP Q15M PRN PRN Reason: Pain, Moderate/Severe (4-10) Metronidazole (Flagyl) 500 mg in 100 mls @ 100 mls/hr IVPB Q8 [facility]; Protocol Last Admin: 07/26/18 05:06 Dose: 100 mls/hr Cefepime HCl (Maxipime 1gm) 1 gm in 100 mls @ 100 mls/hr IVPB Q8 [facility]; Protocol Stop: 08/02/18 10:16 Last Admin: 07/26/18 06:20 Dose: 100 mls/hr Metoprolol Tartrate (Lopressor) 25 mg PO BID [facility] Last Admin: 07/25/18 17:54 Dose: 25 mg Dalfampridine [ Ampyra] 10 Mg ( Home Med) 10 mg PO BID [facility] Last Admin: 07/25/18 17:53 Dose: 10 mg Ondansetron HCl (Zofran Inj) 4 mg IVP Q4 PRN PRN Reason: Nausea/Vomiting Last Admin: 07/25/18 08:48 Dose: 4 mg Oxybutynin Chloride (Ditropan Tab) 10 mg PO QID [facility] Last Admin: 07/25/18 21:07 Dose: 10 mg Pantoprazole Sodium (Protonix Inj) 40 mg IVP DAILY [facility] Last Admin: 07/25/18 09:10 Dose: 40 mg - Labs Labs: 07/25/18 06:00 07/25/18 06:00 PT 15.7 SECONDS (9.4-12.5) H 07/22/18 06:30 INR 1.39 07/22/18 06:30 APTT 27.8 Seconds (26.9-38.3) 07/17/18 13:51 - Constitutional Appears: Non-toxic, No Acute Distress - Head Exam Head Exam: ATRAUMATIC, NORMOCEPHALIC - Eye Exam Eye Exam: EOMI. absent: Scleral icterus - Respiratory Exam Respiratory Exam: NORMAL BREATHING PATTERN. absent: Respiratory Distress - GI/Abdominal Exam GI & Abdominal Exam: Soft. absent: Distended, Firm, Guarding, Rigid, Tenderness, Rebound Additional comments: dressing C/D/I - Extremities Exam Extremities Exam: absent: Calf Tenderness, Pedal Edema - Back Exam Back Exam: absent: CVA tenderness (L), CVA tenderness (R) - Neurological Exam Neurological Exam: Alert, Awake - Skin Skin Exam: Dry, Warm Assessment and Plan - Assessment and Plan (Free Text) Assessment: 68F with cecal mass is s/p right hemicolectomy POD#2 Plan: - Abx per ID - Clear Liquid diet - IVF - F/U AM labs - Out of bed/Ambulating, Abdominal binder when out of bed. - Physical therapy - Incentive spirometer D/W Dr. Elly Luciano PGY4
[2018-07-26 08:01] LABS: BASO # 0.02 K/mm3 (0.0-2.0); BASO % 0.1 % (0.0-3.0); EOS # 0.1 (0.0-0.7); EOS % 0.5 % (1.5-5.0); HEMOGLOBIN 10.3 g/dL (12.0-16.0); LYMPH # 1.9 (1.2-3.4); MEAN CELL VOLUME 89.1 fl (80.0-105.0); MEAN CORPUSCULAR HEMOGLOBIN 28.1 pg (25.0-35.0); MEAN CORPUSCULAR HGB CONC 31.5 g/dl (31.0-37.0); MEAN PLATELET VOLUME 8.8 fl (7.0-11.0); MONO # 1.2 (0.1-0.6); MONO % 8.8 % (1.0-6.0); RBC 3.67 10^6/uL (3.5-6.1); RED CELL DISTRIBUTION WIDTH 15.6 % (11.5-14.5); WHITE BLOOD COUNT 13.8 10^3/uL (4.5-11.0)
[2018-07-26 08:16] LABS: ALBUMIN 2.5 g/dL (3.0-4.8); ALT/SGPT 33 U/L (7-56); AST/SGOT 27 U/L (14-36); BLOOD UREA NITROGEN 5 mg/dL (7-21); CALCIUM 8.2 mg/dL (8.4-10.5); GFR NON-AFRICAN AMERICAN > 60
[2018-07-26] MEDS: Enoxaparin 30 mg Syringe SC SCH (09:09)
--- NOTE | 2018-07-26 10:51 | CP.PCM.PN ---
<Pardeep Crenshaw - Last Filed: 07/26/18 10:47> Subjective - Date & Time of Evaluation Date of Evaluation: 07/26/18 Time of Evaluation: 08:15 - Subjective Subjective: Pardeep Crenshaw PGY1 Medicine Progress Note Patient seen and examined at bedside this morning. No acute events reported overnight. Patient is POD#2 for right hemicolectomy. Patient tolerating CLD without complaints. She admits to BM yesterday. She states pain is controlled with current medications. Patient encouraged to get OOB and drink plenty of fluids. She admits to minimal abdominal pain and denies any other complaints at this time. Objective - Vital Signs/Intake and Output Vital Signs (last 24 hours): Temp Pulse Resp BP Pulse Ox 98.9 F 110 H 16 137/80 99 07/26/18 06:00 07/26/18 09:10 07/26/18 06:00 07/26/18 09:10 07/26/18 06:00 Intake and Output: 07/26/18 07/26/18 06:59 18:59 Intake Total 240 Output Total 100 Balance 140 - Medications Medications: Current Medications Acetaminophen (Tylenol 325mg Tab) 650 mg PO Q6H PRN PRN Reason: Fever >100.4 F Acetaminophen (Tylenol 325 Mg Supp) 650 mg RC Q6H PRN PRN Reason: Fever >100.4 F Last Admin: 07/18/18 17:38 Dose: 650 mg Benzocaine/Menthol (Cepacol Sore Throat) 1 lester MT Q2H PRN PRN Reason: Sore Throat Last Admin: 07/24/18 18:19 Dose: 1 lester Enoxaparin Sodium (Lovenox) 30 mg SC DAILY [facility]; Protocol Last Admin: 07/26/18 09:09 Dose: 30 mg Hydromorphone HCl (Dilaudid) 0.5 mg IVP Q4H PRN PRN Reason: Pain, severe (8-10) Last Admin: 07/26/18 05:18 Dose: 0.5 mg Hydromorphone HCl (Dilaudid) 0.5 mg IVP Q15M PRN PRN Reason: Pain, Moderate/Severe (4-10) Metronidazole (Flagyl) 500 mg in 100 mls @ 100 mls/hr IVPB Q8 [facility]; Protocol Last Admin: 07/26/18 05:06 Dose: 100 mls/hr Cefepime HCl (Maxipime 1gm) 1 gm in 100 mls @ 100 mls/hr IVPB Q8 [facility]; Protocol Stop: 08/02/18 10:16 Last Admin: 07/26/18 06:20 Dose: 100 mls/hr Sodium Chloride (Sodium Chloride 0.9%) 1,000 mls @ 100 mls/hr IV .Q10H [facility] Potassium Chloride (Potassium Chloride 20 Meq/100 Ml) 20 meq in 100 mls @ 50 mls/hr IVPB ONCE ONE Stop: 07/26/18 12:06 Metoprolol Tartrate (Lopressor) 50 mg PO BID [facility] Dalfampridine [ Ampyra] 10 Mg ( Home Med) 10 mg PO BID [facility] Last Admin: 07/25/18 17:53 Dose: 10 mg Ondansetron HCl (Zofran Inj) 4 mg IVP Q4 PRN PRN Reason: Nausea/Vomiting Last Admin: 07/25/18 08:48 Dose: 4 mg Oxybutynin Chloride (Ditropan Tab) 10 mg PO QID [facility] Last Admin: 07/26/18 09:09 Dose: 10 mg Pantoprazole Sodium (Protonix Inj) 40 mg IVP DAILY [facility] Last Admin: 07/26/18 09:10 Dose: 40 mg - Labs Labs: 07/26/18 07:00 07/26/18 07:00 PT 15.7 SECONDS (9.4-12.5) H 07/22/18 06:30 INR 1.39 07/22/18 06:30 APTT 27.8 Seconds (26.9-38.3) 07/17/18 13:51 - Constitutional Appears: Well, Non-toxic, No Acute Distress - Head Exam Head Exam: ATRAUMATIC, NORMOCEPHALIC - Eye Exam Eye Exam: EOMI, PERRL - ENT Exam ENT Exam: Mucous Membranes Moist, Normal Exam - Respiratory Exam Respiratory Exam: Clear to Ausculation Bilateral, NORMAL BREATHING PATTERN - Cardiovascular Exam Cardiovascular Exam: RRR. absent: Murmur - GI/Abdominal Exam GI & Abdominal Exam: Soft, bowel sounds noted in all 4 quadrants. absent: ten derness, rebound, rigidity Additional comments: midline dressing noted, no pus/drainage/bleeding noted. Dressing is clean and intact - Extremities Exam Extremities Exam: DP +2 B/L absent: Pedal Edema, calf tenderness - Neurological Exam Neurological Exam: Alert, Awake, Oriented x3 - Skin Skin Exam: Dry, Intact, Warm Assessment and Plan - Assessment and Plan (Free Text) Assessment: 68F w/ a PMH of MS presented to [facility] on 07[place] w/ c/o N/V Abd pain admitted for initially for ileus 2/2 enteritis as per CTAP; Noted to have partial bowel obstruction on repeat imaging; patient is s/p R hemicolectomy 07/25, POD#2. Continue CLD, pain management and physical therapy. Will need heme/onc ou tpatient followup for cecal mass. Plan: Annular Cecal lesion with partial obstruction -07/21 CTAP reveals annular lesion at the junction of the cecym and ascending colon which is producing partial obstruction. -S/P R hemicolectomy on 07/25 - Noted to have significant mass. Now POD# 2 -continue tylenol prn, dilaudid prn, zofran prn -continue out of bed to chair -continue incentive spirometer use -PT Eval declined yesterday. Patient advised of importance of physical therapy -follow up mass pathology -Heme/Onc, Dr. Tariq Rowe -GI Following, Junior -Surgery Following, [place] Leukocytosis - downtrending -consider 2/2 infectious vs postoperative reactive etiology -continue Cefepime/ Flagyl as per ID -ID Following Hypokalemia -resolved, monitor Hx multiple sclerosis: -continue Ampyra -Straight cath TID Multiple Hepatic Cyst -Triple phase CT once stable as per GI recommendations -GI on consult Asymptomatic ESBL: -Urine culture positive for ESBL -no antibiotic needed at this time PPX: -DVT: SCD -GI: protonix Patient seen and case discussed with attending, Dr. Morataya <Tracy Morataya - Last Filed: 07/27/18 13:52> Objective - Vital Signs/Intake and Output Vital Signs (last 24 hours): Temp Pulse Resp BP Pulse Ox 97.8 F 68 18 145/83 98 07/27/18 06:00 07/27/18 09:51 07/27/18 06:00 07/27/18 09:51 07/27/18 06:00 Intake and Output: 07/27/18 07/27/18 06:59 18:59 Intake Total 0 420 Output Total 850 600 Balance -850 -180 - Medications Medications: Current Medications Acetaminophen (Tylenol 325mg Tab) 650 mg PO Q6H PRN PRN Reason: Fever >100.4 F Acetaminophen (Tylenol 325 Mg Supp) 650 mg RC Q6H PRN PRN Reason: Fever >100.4 F Last Admin: 07/18/18 17:38 Dose: 650 mg Benzocaine/Menthol (Cepacol Sore Throat) 1 lester MT Q2H PRN PRN Reason: Sore Throat Last Admin: 07/26/18 22:23 Dose: 1 lester Enoxaparin Sodium (Lovenox) 30 mg SC DAILY [facility]; Protocol Last Admin: 07/27/18 09:51 Dose: 30 mg Hydromorphone HCl (Dilaudid) 0.5 mg IVP Q4H PRN PRN Reason: Pain, severe (8-10) Last Admin: 07/26/18 23:47 Dose: 0.5 mg Hydromorphone HCl (Dilaudid) 0.5 mg IVP Q15M PRN PRN Reason: Pain, Moderate/Severe (4-10) Sodium Chloride (Sodium Chloride 0.9%) 1,000 mls @ 100 mls/hr IV .Q10H [facility] Metoprolol Tartrate (Lopressor) 50 mg PO BID [facility] Last Admin: 07/27/18 09:51 Dose: 50 mg Dalfampridine [ Ampyra] 10 Mg ( Home Med) 10 mg PO BID [facility] Last Admin: 07/27/18 09:50 Dose: 10 mg Ondansetron HCl (Zofran Inj) 4 mg IVP Q4 PRN PRN Reason: Nausea/Vomiting Last Admin: 07/25/18 08:48 Dose: 4 mg Oxybutynin Chloride (Ditropan Tab) 10 mg PO QID [facility] Last Admin: 07/27/18 09:50 Dose: 10 mg Pantoprazole Sodium (Protonix Inj) 40 mg IVP DAILY [facility] Last Admin: 07/27/18 09:51 Dose: 40 mg - Labs Labs: 07/27/18 06:00 07/27/18 06:00 PT 15.7 SECONDS (9.4-12.5) H 07/22/18 06:30 INR 1.39 07/22/18 06:30 APTT 27.8 Seconds (26.9-38.3) 07/17/18 13:51 Attending/Attestation - Attestation I have personally seen and examined this patient.: Yes I have fully participated in the care of the patient.: Yes I have reviewed all pertinent clinical information, including history, physical exam and plan: Yes Notes (Text): 07/27/18 13:47 Attending note; Patient seen and examined with resident. Patient is alert and awake. Denies any abdominal pain, nausea. Tolerating liquid diet. Patient is a 68 year old female with history of multiple sclerosis that presented to the emergency room with nausea, vomiting, and abdominal pain. 1. Annular cecal lesion with partial obstruction. S/P exploratory laparotomy and right hemicolectomy for right colon mass and dilated small and large bowel 07/24/18. Patient is tolerating diet. Abdominal pain is improving. Pending path results. Follow-up with surgery closely. 2. Nausea and vomiting. Continue Zofran as needed. 3. SIRS. Leukocytosis. Improving. Initial urine culture was positive for ESBL but patient asymptomatic. ID recommendations appreciated. Repeat cultures Is negative. Procalcitonin is negative. on IV Cefepime and Flagyl. 4. Hepatic cysts. Triple phase liver CT at later time per GI. GI recommendations appreciated. 5. Multiple Scelerosis. Continue Ampyra. 6. Overactive bladder. Continue oxybutynin 7. Fecal retention. Resolved. Continue to monitor. PT evaluation requested. Out of bed to chair as recommended. Patient normally uses wheelchair at home and ambulates with walker at times patient. Patient lives alone. Upon discharge the patient will follow up with PMD Dr. Muniz.
[2018-07-26] MEDS: DALFAMPRIDINE 10 MG PO SCH ×2 (12:20→18:20)
--- NOTE | 2018-07-26 13:24 | PN ---
DATE: 07/26/2018 REASON FOR CONSULTATION AND FOLLOWUP: Covering for Dr. Gonzales; preop evaluation, postop followup, status post right hemicolectomy; and cardiac followup. SUBJECTIVE: The patient denies any chest pain, shortness of breath, or any new palpitation. Now he has got better. Did not eat the breakfast, but going to eat. No more nauseous. PHYSICAL EXAMINATION: As follows; VITAL SIGNS: Temperature afebrile, heart rate 110, and blood pressure 137/80. HEENT: PERRLA. Extraocular muscle intact. NECK: Supple. No carotid bruits or thyromegaly. CHEST: Clear to auscultation. HEART: S1 and S2 regular. ABDOMEN: Soft. EXTREMITIES: Clubbing and cyanosis negative. LABORATORY DATA: Blood workup as follows; WBC 13.8, hemoglobin 10.3, hematocrit 32.7, and platelet count 324. Chemistry shows sodium 136, potassium 3.8, chloride 104, carbon dioxide 28, anion gap of 10, BUN 5, and creatinine 0.6. IMPRESSION: A 68-year-old female, with no significant past medical history except history of multiple sclerosis since 1982, admitted with acute abdomen and abdominal pain. Underwent surgical evaluation and then subsequently underwent right hemicolectomy. Postoperative, now feels nauseous. Recently echocardiogram done on 07/26/2018 shows borderline left ventricular function, normal segmental wall motion, and trace to mild aortic regurgitation. Postoperative patient feels nauseous. RECOMMENDATIONS: Continue Zofran; continue perioperative beta matti; continue DVT prophylaxis. CVA status is stable, and we will transfer care on Friday to Dr. Gonzales. Continue DVT prophylaxis. Currently, off of antibiotics. Continue metoprolol 25 p.o. twice a day. We will follow with you. If the blood pressure and heart rate remain persistently, we can increase metoprolol to 50 twice a day. We will also supplement potassium. Since the patient is nauseous, we will give Kytril. We will transfer care tomorrow to Dr. Gonzales. Micki Cordero MD [facility] # [phone]
--- NOTE | 2018-07-26 15:41 | PN ---
DATE: 07/26/2018 SUBJECTIVE: The patient is in bed in no acute distress. PHYSICAL EXAMINATION VITAL SIGNS: Temperature is 98, blood pressure is 130/80, respiratory of 18. HEENT: Unremarkable. NECK: Supple. LUNGS: Have decreased breath sounds. HEART: Normal S1, S2. ABDOMEN: Soft, nontender. LABORATORY EXAMINATION: Reveals the patient's white count of 13,800, hemoglobin of 10, BUN of 5, creatinine of 0.6. Procalcitonin is 0.10. Urinalysis is noted and microbiology reveals the blood cultures are negative. ASSESSMENT AND PLAN: This is a 68-year-old female with history of multiple sclerosis who was admitted with ileus, was found to have a cecal mass status post right hemicolectomy postoperative day #2 now with new systemic inflammatory response syndrome with leukocytosis and tachycardia with systemic inflammatory response syndrome post day #2, the patient with the extended-spectrum beta-lactamases Escherichia coli, asymptomatic bacteriuria and currently now on Flagyl and cefepime with white count is down to 13,800. We will check on the repeat pancultures, thus far urine and blood are negative. Chest x-ray is bibasilar atelectasis, questionable left pleural effusion. We will follow with you and we will make further recommendations. Case discussed with the surgical chief resident. Kenn Goodrich MD
[2018-07-26] MEDS: Benzocaine/Menthol (Cepacol) Lozenge MT PRN (22:23)
[2018-07-27] MEDS: Cefepime 1gm in NS 100ml 1 GM/100 ML BAG IVPB SCH (05:32)
[2018-07-27] MEDS: metroNIDAZOLE IV 500 mg/100 ml 500 MG/100 ML BAG IVPB SCH (05:34)
[2018-07-27 07:09] LABS: BASO # 0.03 K/mm3 (0.0-2.0); BASO % 0.3 % (0.0-3.0); EOS # 0.2 (0.0-0.7); HEMOGLOBIN 9.7 g/dL (12.0-16.0); LYMPH % 21.5 % (22.0-35.0); MEAN CELL VOLUME 89.3 fl (80.0-105.0); MEAN CORPUSCULAR HGB CONC 31.3 g/dl (31.0-37.0); MONO # 0.7 (0.1-0.6); RBC 3.47 10^6/uL (3.5-6.1); RED CELL DISTRIBUTION WIDTH 15.7 % (11.5-14.5); WHITE BLOOD COUNT 9.3 10^3/uL (4.5-11.0)
[2018-07-27 07:49] LABS: ALBUMIN 2.3 g/dL (3.0-4.8); ALT/SGPT 34 U/L (7-56); AST/SGOT 24 U/L (14-36); BLOOD UREA NITROGEN 6 mg/dL (7-21); CALCIUM 8.1 mg/dL (8.4-10.5); GFR NON-AFRICAN AMERICAN > 60
--- NOTE | 2018-07-27 07:58 | CP.PCM.PN ---
Subjective - Date & Time of Evaluation Date of Evaluation: 07/27/18 Time of Evaluation: 07:15 - Subjective Subjective: General Surgery Pt seen and examined. Afebrile. No acute events overnight. Pain controlled with meds. Tolerated CLD. Voiding. Having BMs. Up at bedside to dangle feet. Still feeling anxious at times. Denies palpitations, SOB, chest pain. Objective - Vital Signs/Intake and Output Vital Signs (last 24 hours): Temp Pulse Resp BP Pulse Ox 97.9 F 100 H 20 128/84 97 07/26/18 22:00 07/26/18 22:00 07/26/18 22:00 07/26/18 22:00 07/26/18 22:00 Intake and Output: 07/27/18 07/27/18 06:59 18:59 Intake Total 0 Output Total 850 Balance -850 - Medications Medications: Current Medications Acetaminophen (Tylenol 325mg Tab) 650 mg PO Q6H PRN PRN Reason: Fever >100.4 F Acetaminophen (Tylenol 325 Mg Supp) 650 mg RC Q6H PRN PRN Reason: Fever >100.4 F Last Admin: 07/18/18 17:38 Dose: 650 mg Benzocaine/Menthol (Cepacol Sore Throat) 1 lester MT Q2H PRN PRN Reason: Sore Throat Last Admin: 07/26/18 22:23 Dose: 1 lester Enoxaparin Sodium (Lovenox) 30 mg SC DAILY [facility]; Protocol Last Admin: 07/26/18 09:09 Dose: 30 mg Hydromorphone HCl (Dilaudid) 0.5 mg IVP Q4H PRN PRN Reason: Pain, severe (8-10) Last Admin: 07/26/18 23:47 Dose: 0.5 mg Hydromorphone HCl (Dilaudid) 0.5 mg IVP Q15M PRN PRN Reason: Pain, Moderate/Severe (4-10) Metronidazole (Flagyl) 500 mg in 100 mls @ 100 mls/hr IVPB Q8 [facility]; Protocol Last Admin: 07/27/18 05:34 Dose: 100 mls/hr Cefepime HCl (Maxipime 1gm) 1 gm in 100 mls @ 100 mls/hr IVPB Q8 [facility]; Protocol Stop: 08/02/18 10:16 Last Admin: 07/27/18 05:32 Dose: 100 mls/hr Sodium Chloride (Sodium Chloride 0.9%) 1,000 mls @ 100 mls/hr IV .Q10H [facility] Metoprolol Tartrate (Lopressor) 50 mg PO BID [facility] Last Admin: 07/26/18 18:09 Dose: 50 mg Dalfampridine [ Ampyra] 10 Mg ( Home Med) 10 mg PO BID [facility] Last Admin: 07/26/18 18:20 Dose: 10 mg Ondansetron HCl (Zofran Inj) 4 mg IVP Q4 PRN PRN Reason: Nausea/Vomiting Last Admin: 07/25/18 08:48 Dose: 4 mg Oxybutynin Chloride (Ditropan Tab) 10 mg PO QID [facility] Last Admin: 07/26/18 21:17 Dose: 10 mg Pantoprazole Sodium (Protonix Inj) 40 mg IVP DAILY [facility] Last Admin: 07/26/18 09:10 Dose: 40 mg - Labs Labs: 07/27/18 06:00 07/27/18 06:00 PT 15.7 SECONDS (9.4-12.5) H 07/22/18 06:30 INR 1.39 07/22/18 06:30 APTT 27.8 Seconds (26.9-38.3) 07/17/18 13:51 - Constitutional Appears: Non-toxic, No Acute Distress - Head Exam Head Exam: ATRAUMATIC, NORMOCEPHALIC - Eye Exam Eye Exam: EOMI. absent: Scleral icterus - Respiratory Exam Respiratory Exam: NORMAL BREATHING PATTERN. absent: Respiratory Distress - Cardiovascular Exam Cardiovascular Exam: Tachycardia - GI/Abdominal Exam GI & Abdominal Exam: Soft, Tenderness (appropriately mild at incision). absent: Distended, Firm, Guarding, Rigid, Rebound Additional comments: Incision C/D/I, no drainage, minimal erythema - Extremities Exam Extremities Exam: absent: Calf Tenderness, Pedal Edema - Back Exam Back Exam: absent: CVA tenderness (L), CVA tenderness (R) - Neurological Exam Neurological Exam: Alert, Awake - Skin Skin Exam: Dry, Warm Assessment and Plan - Assessment and Plan (Free Text) Assessment: 68F with cecal mass is s/p right hemicolectomy POD#3 Plan: - Abx per ID - Clear Liquid diet - IVF - Encouraged out of bed/Ambulating, Abdominal binder when out of bed. Physical therapy - Incentive spirometer - Monitor incision D/W Dr. Elly Luciano PGY4
[2018-07-27] MEDS: DALFAMPRIDINE 10 MG PO SCH ×2 (09:50→17:19)
[2018-07-27] MEDS: Enoxaparin 30 mg Syringe SC SCH (09:51)
--- NOTE | 2018-07-27 10:11 | CP.PCM.PN ---
<Darwin Robles - Last Filed: 07/27/18 11:59> Subjective - Date & Time of Evaluation Date of Evaluation: 07/27/18 Time of Evaluation: 07:30 - Subjective Subjective: Darwin Robles DO PGY1 Hospitalist Progress Note for Dr Sears Patient seen and examined at bedside. She is tolerating her solid diet, having BM. Denies abdominal pain, nausea, vomiting. She ambulates with PT. No overnight events. Objective - Vital Signs/Intake and Output Vital Signs (last 24 hours): Temp Pulse Resp BP Pulse Ox 97.8 F 68 18 145/83 98 07/27/18 06:00 07/27/18 09:51 07/27/18 06:00 07/27/18 09:51 07/27/18 06:00 Intake and Output: 07/27/18 07/27/18 06:59 18:59 Intake Total 0 Output Total 850 Balance -850 - Medications Medications: Current Medications Acetaminophen (Tylenol 325mg Tab) 650 mg PO Q6H PRN PRN Reason: Fever >100.4 F Acetaminophen (Tylenol 325 Mg Supp) 650 mg RC Q6H PRN PRN Reason: Fever >100.4 F Last Admin: 07/18/18 17:38 Dose: 650 mg Benzocaine/Menthol (Cepacol Sore Throat) 1 lester MT Q2H PRN PRN Reason: Sore Throat Last Admin: 07/26/18 22:23 Dose: 1 lester Enoxaparin Sodium (Lovenox) 30 mg SC DAILY [facility]; Protocol Last Admin: 07/27/18 09:51 Dose: 30 mg Hydromorphone HCl (Dilaudid) 0.5 mg IVP Q4H PRN PRN Reason: Pain, severe (8-10) Last Admin: 07/26/18 23:47 Dose: 0.5 mg Hydromorphone HCl (Dilaudid) 0.5 mg IVP Q15M PRN PRN Reason: Pain, Moderate/Severe (4-10) Sodium Chloride (Sodium Chloride 0.9%) 1,000 mls @ 100 mls/hr IV .Q10H [facility] Metoprolol Tartrate (Lopressor) 50 mg PO BID [facility] Last Admin: 07/27/18 09:51 Dose: 50 mg Dalfampridine [ Ampyra] 10 Mg ( Home Med) 10 mg PO BID [facility] Last Admin: 07/27/18 09:50 Dose: 10 mg Ondansetron HCl (Zofran Inj) 4 mg IVP Q4 PRN PRN Reason: Nausea/Vomiting Last Admin: 07/25/18 08:48 Dose: 4 mg Oxybutynin Chloride (Ditropan Tab) 10 mg PO QID [facility] Last Admin: 07/27/18 09:50 Dose: 10 mg Pantoprazole Sodium (Protonix Inj) 40 mg IVP DAILY [facility] Last Admin: 07/27/18 09:51 Dose: 40 mg - Labs Labs: 07/27/18 06:00 07/27/18 06:00 PT 15.7 SECONDS (9.4-12.5) H 07/22/18 06:30 INR 1.39 07/22/18 06:30 APTT 27.8 Seconds (26.9-38.3) 07/17/18 13:51 - Constitutional Appears: Well, Non-toxic - Head Exam Head Exam: ATRAUMATIC, NORMAL INSPECTION, NORMOCEPHALIC - Eye Exam Eye Exam: EOMI, Normal appearance, PERRL Pupil Exam: NORMAL ACCOMODATION, PERRL - ENT Exam ENT Exam: Mucous Membranes Moist, Normal Exam - Neck Exam Neck Exam: Full ROM, Normal Inspection. absent: Lymphadenopathy - Respiratory Exam Respiratory Exam: Clear to Ausculation Bilateral, NORMAL BREATHING PATTERN - Cardiovascular Exam Cardiovascular Exam: REGULAR RHYTHM, +S1, +S2. absent: Murmur - GI/Abdominal Exam GI & Abdominal Exam: Soft, Normal Bowel Sounds. absent: Tenderness Additional comments: midline abd incision, clean, no erythema, no pus/discharge, dressing applied - Extremities Exam Extremities Exam: Full ROM, Normal Capillary Refill, Normal Inspection. absent: Joint Swelling, Pedal Edema - Back Exam Back Exam: NORMAL INSPECTION - Neurological Exam Neurological Exam: Alert, Awake, CN II-XII Intact, Oriented x3 - Psychiatric Exam Psychiatric exam: Normal Mood - Skin Skin Exam: Dry, Intact, Normal Color, Warm Assessment and Plan - Assessment and Plan (Free Text) Assessment: 68 y/o female with PMH of MS presents with abdominal pain, nausea, NB vomiting. Found to have SBO with partially obstructive cecal mass. Now s/p ex-lap on 07/25 with mass resection- POD2 Plan: s/p ex-lap in the setting of SBO with cecal mass: -patient doing well, tolerating diet, having BM, ambulating OOB with PT -continue PT therapy -continue IV -pain control, tylenol, dilaudid prn -f/u pathology -blood/urine cx negative to date -continue zofran prn, protonix -CT A/P 07/19: dilated small bowel. liquid stool noted throughout small intestine and mix of hard stool and liquid noted in colon -preoperative Echo: EF 51.6% borderline LV function. -continue metoprolol 50mg bid as per cardio -surgery following, Dr Sanabria -Hem/onc following Dr Rowe h/o multiple sclerosis: -continue home med ampyra -patient uses wheelchair/walker at home Hepatic cysts: - per GI, consider triple phase liver CT Asymptomatic ESBL: -Ucx: + ESBL, no abx needed PPX: DVT: SCD, lovenox GI: protonix PT: recommended RY upon discharge Case reviewed and plan discussed with attending Dr Junior Robles, DO <Tracy Morataya - Last Filed: 07/27/18 13:56> Objective - Vital Signs/Intake and Output Vital Signs (last 24 hours): Temp Pulse Resp BP Pulse Ox 97.8 F 68 18 145/83 98 07/27/18 06:00 07/27/18 09:51 07/27/18 06:00 07/27/18 09:51 07/27/18 06:00 Intake and Output: 07/27/18 07/27/18 06:59 18:59 Intake Total 0 420 Output Total 850 600 Balance -850 -180 - Medications Medications: Current Medications Acetaminophen (Tylenol 325mg Tab) 650 mg PO Q6H PRN PRN Reason: Fever >100.4 F Acetaminophen (Tylenol 325 Mg Supp) 650 mg RC Q6H PRN PRN Reason: Fever >100.4 F Last Admin: 07/18/18 17:38 Dose: 650 mg Benzocaine/Menthol (Cepacol Sore Throat) 1 lester MT Q2H PRN PRN Reason: Sore Throat Last Admin: 07/26/18 22:23 Dose: 1 lester Enoxaparin Sodium (Lovenox) 30 mg SC DAILY [facility]; Protocol Last Admin: 07/27/18 09:51 Dose: 30 mg Hydromorphone HCl (Dilaudid) 0.5 mg IVP Q4H PRN PRN Reason: Pain, severe (8-10) Last Admin: 07/26/18 23:47 Dose: 0.5 mg Hydromorphone HCl (Dilaudid) 0.5 mg IVP Q15M PRN PRN Reason: Pain, Moderate/Severe (4-10) Sodium Chloride (Sodium Chloride 0.9%) 1,000 mls @ 100 mls/hr IV .Q10H [facility] Metoprolol Tartrate (Lopressor) 50 mg PO BID [facility] Last Admin: 07/27/18 09:51 Dose: 50 mg Dalfampridine [ Ampyra] 10 Mg ( Home Med) 10 mg PO BID [facility] Last Admin: 07/27/18 09:50 Dose: 10 mg Ondansetron HCl (Zofran Inj) 4 mg IVP Q4 PRN PRN Reason: Nausea/Vomiting Last Admin: 07/25/18 08:48 Dose: 4 mg Oxybutynin Chloride (Ditropan Tab) 10 mg PO QID [facility] Last Admin: 07/27/18 09:50 Dose: 10 mg Pantoprazole Sodium (Protonix Inj) 40 mg IVP DAILY [facility] Last Admin: 07/27/18 09:51 Dose: 40 mg - Labs Labs: 07/27/18 06:00 07/27/18 06:00 PT 15.7 SECONDS (9.4-12.5) H 07/22/18 06:30 INR 1.39 07/22/18 06:30 APTT 27.8 Seconds (26.9-38.3) 07/17/18 13:51 Attending/Attestation - Attestation I have personally seen and examined this patient.: Yes I have fully participated in the care of the patient.: Yes I have reviewed all pertinent clinical information, including history, physical exam and plan: Yes Notes (Text): 07/27/18 13:53 Attending note; Patient seen and examined with resident. Patient is alert and awake. Denies any abdominal pain, nausea. Tolerating liquid diet. Currently working with physical therapy. Patient is a 68 year old female with history of multiple sclerosis that presented to the emergency room with nausea, vomiting, and abdominal pain. 1. Annular cecal lesion with partial obstruction. S/P exploratory laparotomy and right hemicolectomy for right colon mass and dilated small and large bowel Postop day #3. Patient is tolerating diet. Pending path results. Surgery follow-up appreciated. 2. Nausea and vomiting. resolved. Continue Zofran as needed. 3. SIRS. Leukocytosis. Resolved. Initial urine culture was positive for ESBL but patient asymptomatic. ID recommendations appreciated. Repeat cultures Is negative. Procalcitonin is negative. Antibiotics stopped. 4. Hepatic cysts. Triple phase liver CT at later time per GI. GI recomme ndations appreciated. 5. Multiple Scelerosis. Continue Ampyra. 6. Overactive bladder. Continue oxybutynin 7. Fecal retention. Resolved. Continue to monitor. PT evaluation appreciated. Subacute rehab recommended. Upon discharge the patient will follow up with PMD Dr. Muniz.
--- NOTE | 2018-07-27 10:41 | PN ---
DATE: 07/27/2018 SUBJECTIVE: The patient is seen earlier today. She is doing better. She has had moved her bowels. No fevers. PHYSICAL EXAMINATION: VITAL SIGNS: On exam, temperature is 97, blood pressure 128/80, respiratory rate 20, heart rate of 100. HEENT: Unremarkable. NECK: Supple. HEART: Normal S1, S2. LUNGS: Have decreased breath sounds. ABDOMEN: Soft. LABORATORY DATA: Reveals the patient's white count is down to 9.3, hemoglobin of 9, platelets of 294. Chemistries are noted and procalcitonin is 0.1. Urinalysis is negative and stool for occult is negative and microbiology reveals the blood cultures are negative. Urine cultures are negative. The repeat blood cultures are negative. Earlier, ESBL in the urine and atelectasis improved. ASSESSMENT AND PLAN: This is a 68-year-old female with multiple sclerosis who was admitted with an ileus. She was found to have a cecal mass, status post right hemicolectomy day #3 postop with new serous systemic inflammatory response syndrome with leukocytosis, tachycardia. She did have extended-spectrum beta-lactamases Escherichia coli, asymptomatic bacteriuria. Now the white count is resolved and the cultures are negative. We will discontinue the antibiotics. The patient is at risk for developing nosocomial infections. No antibiotics at this time. Awaiting for pathology. Kenn Goodrich MD
[2018-07-27] MEDS: Sodium Chloride 0.9% 1,000 ML IV SCH ×3 (17:21→20:30)
--- NOTE | 2018-07-27 17:31 | PN ---
DATE: 07/27/2018 SUBJECTIVE: The patient underwent right hemicolectomy on 07/24/2018. She denies any chest pain or shortness of breath at this time. PHYSICAL EXAMINATION: VITAL SIGNS: Blood pressure , heart rate 68, temperature 97.8, and respirations 18. HEENT: Pale conjunctivae. CHEST: Clear. HEART: S1 and S2 regular. EXTREMITIES: No edema. LABORATORY DATA: Today's hemoglobin and hematocrit are 9.7 and 31, white count and platelet count are within normal limits. Today's SMA-7: Sodium 138, potassium 4, chloride 104, CO2 of 28, glucose 84, BUN 6, and creatinine 0.5. Today's EKG which is ECG postoperative revealed sinus tachycardia at the rate 103. ASSESSMENT: 1. Status post right hemicolectomy for a cecal mass. Biopsy report is still pending. 2. Diastolic left ventricular dysfunction. 3. Mild sinus tachycardia. 4. Multiple sclerosis. 5. Anemia. RECOMMENDATIONS: Continue current Lopressor 50 mg twice a day, subcutaneous Lovenox at 30 mg once a day, Protonix 40 mg intravenously daily. I will follow up pathology report of the cecal mass. Brian Gonzales MD
[2018-07-27] MEDS: Benzocaine/Menthol (Cepacol) Lozenge MT PRN (23:56)
[2018-07-28] MEDS: Sodium Chloride 0.9% 1,000 ML IV SCH (06:12)
[2018-07-28 07:55] LABS: BASO # 0.04 K/mm3 (0.0-2.0); BASO % 0.4 % (0.0-3.0); EOS # 0.3 (0.0-0.7); EOS % 2.8 % (1.5-5.0); HEMOGLOBIN 9.8 g/dL (12.0-16.0); LYMPH # 1.9 (1.2-3.4); LYMPH % 21.3 % (22.0-35.0); MEAN CORPUSCULAR HEMOGLOBIN 28.3 pg (25.0-35.0); MEAN CORPUSCULAR HGB CONC 31.8 g/dl (31.0-37.0); MEAN PLATELET VOLUME 8.8 fl (7.0-11.0); MONO # 0.6 (0.1-0.6); MONO % 6.8 % (1.0-6.0); RBC 3.46 10^6/uL (3.5-6.1); RED CELL DISTRIBUTION WIDTH 15.8 % (11.5-14.5); WHITE BLOOD COUNT 9.1 10^3/uL (4.5-11.0)
[2018-07-28 08:06] LABS: ALBUMIN 2.4 g/dL (3.0-4.8); ALT/SGPT 26 U/L (7-56); AST/SGOT 17 U/L (14-36); BLOOD UREA NITROGEN 6 mg/dL (7-21); CALCIUM 8.1 mg/dL (8.4-10.5); GFR NON-AFRICAN AMERICAN > 60
--- NOTE | 2018-07-28 08:11 | CP.PCM.PN ---
Subjective - Date & Time of Evaluation Date of Evaluation: 07/28/18 Time of Evaluation: 06:55 - Subjective Subjective: General Surgery Pt seen and examined. No acute events overnight. Afebrile. Pain controlled with meds. Tolerated CLD, says she is hungry today. + BMs. OOB to chair yesterday. Reports L hip and flank pain yesterday after sitting in chair. Objective - Vital Signs/Intake and Output Vital Signs (last 24 hours): Temp Pulse Resp BP Pulse Ox 98 F 90 18 123/79 95 07/28/18 06:00 07/28/18 06:00 07/28/18 06:00 07/28/18 06:00 07/28/18 06:00 Intake and Output: 07/28/18 07/28/18 06:59 18:59 Intake Total 1340 Output Total 600 Balance 740 - Medications Medications: Current Medications Acetaminophen (Tylenol 325mg Tab) 650 mg PO Q6H PRN PRN Reason: Fever >100.4 F Last Admin: 07/27/18 17:27 Dose: 650 mg Acetaminophen (Tylenol 325 Mg Supp) 650 mg RC Q6H PRN PRN Reason: Fever >100.4 F Last Admin: 07/18/18 17:38 Dose: 650 mg Benzocaine/Menthol (Cepacol Sore Throat) 1 lester MT Q2H PRN PRN Reason: Sore Throat Last Admin: 07/27/18 23:56 Dose: 1 lester Enoxaparin Sodium (Lovenox) 30 mg SC DAILY [facility]; Protocol Last Admin: 07/27/18 09:51 Dose: 30 mg Hydromorphone HCl (Dilaudid) 0.5 mg IVP Q4H PRN PRN Reason: Pain, severe (8-10) Last Admin: 07/26/18 23:47 Dose: 0.5 mg Hydromorphone HCl (Dilaudid) 0.5 mg IVP Q15M PRN PRN Reason: Pain, Moderate/Severe (4-10) Sodium Chloride (Sodium Chloride 0.9%) 1,000 mls @ 100 mls/hr IV .Q10H [facility] Last Admin: 07/28/18 06:12 Dose: 100 mls/hr Metoprolol Tartrate (Lopressor) 50 mg PO BID [facility] Last Admin: 07/27/18 17:20 Dose: 50 mg Dalfampridine [ Ampyra] 10 Mg ( Home Med) 10 mg PO BID [facility] Last Admin: 07/27/18 17:19 Dose: 10 mg Ondansetron HCl (Zofran Inj) 4 mg IVP Q4 PRN PRN Reason: Nausea/Vomiting Last Admin: 07/27/18 21:00 Dose: 4 mg Oxybutynin Chloride (Ditropan Tab) 10 mg PO QID [facility] Last Admin: 07/27/18 21:00 Dose: 10 mg Pantoprazole Sodium (Protonix Inj) 40 mg IVP DAILY [facility] Last Admin: 07/27/18 09:51 Dose: 40 mg - Labs Labs: 07/27/18 06:00 07/27/18 06:00 PT 15.7 SECONDS (9.4-12.5) H 07/22/18 06:30 INR 1.39 07/22/18 06:30 APTT 27.8 Seconds (26.9-38.3) 07/17/18 13:51 - Constitutional Appears: Non-toxic, No Acute Distress - Head Exam Head Exam: ATRAUMATIC, NORMOCEPHALIC - Eye Exam Eye Exam: EOMI. absent: Scleral icterus - Respiratory Exam Respiratory Exam: NORMAL BREATHING PATTERN. absent: Respiratory Distress - GI/Abdominal Exam GI & Abdominal Exam: Soft, Tenderness (minimal at incision). absent: Distended, Firm, Guarding, Rigid, Rebound Additional comments: incision C/D/I - Extremities Exam Extremities Exam: absent: Calf Tenderness, Pedal Edema - Back Exam Back Exam: absent: CVA tenderness (L), CVA tenderness (R) - Neurological Exam Neurological Exam: Alert, Awake, Oriented x3 - Skin Skin Exam: Dry, Warm Assessment and Plan - Assessment and Plan (Free Text) Assessment: 68F with cecal mass is s/p right hemicolectomy POD#4 Plan: - Abx per ID - Advance diet today - Encouraged out of bed/Ambulating, Abdominal binder when out of bed. Physical therapy - Incentive spirometer - Monitor incision D/W Dr. Elly Luciano PGY4
[2018-07-28] MEDS: DALFAMPRIDINE 10 MG PO SCH (10:58)
[2018-07-28] MEDS: Enoxaparin 30 mg Syringe SC SCH (11:00)
--- NOTE | 2018-07-28 11:03 | CARD ---
APPROVED REPORT Date of service: 07/27/2018 EKG Measurement Heart [id number] <Conclusion> Sinus tachycardia Otherwise normal ECG
--- NOTE | 2018-07-28 12:41 | CP.PCM.PCO ---
Physician Communication Note - Physician Communication Note Physician Communication Note: per I.D.no further antibx, reg.diet today.per pMd cleared for RY.
--- NOTE | 2018-07-28 15:56 | CP.PCM.PN ---
<Darwin Robles - Last Filed: 07/28/18 16:01> Subjective - Date & Time of Evaluation Date of Evaluation: 07/28/18 Time of Evaluation: 06:10 - Subjective Subjective: Darwin Robles DO PGY1 Hospitalist Progress Note for Dr Morataya Patient seen and examined at bedside. She is tolerating her regular diet, having BM/flatus. Denies abdominal pain, N/V. She ambulates with PT. No overnight events. Objective - Vital Signs/Intake and Output Vital Signs (last 24 hours): Temp Pulse Resp BP Pulse Ox 0 F L 0 L 0 L 106/71 0 L 07/28/18 14:00 07/28/18 14:00 07/28/18 14:00 07/28/18 14:00 07/28/18 14:00 Intake and Output: 07/28/18 07/28/18 06:59 18:59 Intake Total 1340 480 Output Total 600 Balance 740 480 - Medications Medications: Current Medications Acetaminophen (Tylenol 325mg Tab) 650 mg PO Q6H PRN PRN Reason: Fever >100.4 F Last Admin: 07/28/18 11:02 Dose: 650 mg Acetaminophen (Tylenol 325 Mg Supp) 650 mg RC Q6H PRN PRN Reason: Fever >100.4 F Last Admin: 07/18/18 17:38 Dose: 650 mg Benzocaine/Menthol (Cepacol Sore Throat) 1 lseter MT Q2H PRN PRN Reason: Sore Throat Last Admin: 07/27/18 23:56 Dose: 1 lester Enoxaparin Sodium (Lovenox) 30 mg SC DAILY [facility]; Protocol Last Admin: 07/28/18 11:00 Dose: 30 mg Metoprolol Tartrate (Lopressor) 50 mg PO BID [facility] Last Admin: 07/28/18 10:00 Dose: 50 mg Dalfampridine [ Ampyra] 10 Mg ( Home Med) 10 mg PO BID [facility] Last Admin: 07/28/18 10:58 Dose: 10 mg Ondansetron HCl (Zofran Inj) 4 mg IVP Q4 PRN PRN Reason: Nausea/Vomiting Last Admin: 07/28/18 12:42 Dose: 4 mg Oxybutynin Chloride (Ditropan Tab) 10 mg PO QID [facility] Last Admin: 07/28/18 14:31 Dose: 10 mg Pantoprazole Sodium (Protonix Ec Tab) 40 mg PO ACB [facility] - Labs Labs: 07/28/18 07:30 07/28/18 07:30 PT 15.7 SECONDS (9.4-12.5) H 07/22/18 06:30 INR 1.39 07/22/18 06:30 APTT 27.8 Seconds (26.9-38.3) 07/17/18 13:51 - Additional Findings Additional findings: - Constitutional Appears: Well, Non-toxic - Head Exam Head Exam: ATRAUMATIC, NORMAL INSPECTION, NORMOCEPHALIC - Eye Exam Eye Exam: EOMI, Normal appearance, PERRL Pupil Exam: NORMAL ACCOMODATION, PERRL - ENT Exam ENT Exam: Mucous Membranes Moist, Normal Exam - Neck Exam Neck Exam: Full ROM, Normal Inspection. absent: Lymphadenopathy - Respiratory Exam Respiratory Exam: Clear to Ausculation Bilateral, NORMAL BREATHING PATTERN - Cardiovascular Exam Cardiovascular Exam: REGULAR RHYTHM, +S1, +S2. absent: Murmur - GI/Abdominal Exam GI & Abdominal Exam: Soft, Normal Bowel Sounds. absent: Tenderness Additional comments: midline abd incision, clean, no erythema, no pus/discharge, sugar intact - Extremities Exam Extremities Exam: Full ROM, Normal Capillary Refill, Normal Inspection. absent: Joint Swelling, Pedal Edema - Back Exam Back Exam: NORMAL INSPECTION - Neurological Exam Neurological Exam: Alert, Awake, CN II-XII Intact, Oriented x3 - Psychiatric Exam Psychiatric exam: Normal Mood - Skin Skin Exam: Dry, Intact, Normal Color, Warm Assessment and Plan - Assessment and Plan (Free Text) Assessment: 68 y/o female with PMH of MS admitted for SBO with partially obstructive cecal mass. Now s/p ex-lap on 07/25 with mass resection- POD3 Plan: s/p ex-lap with right hemicolectomy in the setting of SBO with cecal mass: -patient afebrile, had BM, tolerating regular diet ambulating OOB with PT -continue PT therapy -continue zofran prn, protonix, tylenol prn for pain -f/u pathology report -blood/urine cx negative to date -off abx -CT A/P 07/19: dilated small bowel. liquid stool noted throughout small intestine and mix of hard stool and liquid noted in colon -preoperative Echo: EF 51.6% borderline LV function. -continue metoprolol 50mg bid as per cardio -surgery following, Dr Sanabria -Hem/onc following Dr Rowe h/o multiple sclerosis: -continue home med ampyra -patient uses wheelchair/walker at home -continue oxybutynin for overactive bladder Hepatic cysts: - per GI, consider triple phase liver CT at a later date Asymptomatic ESBL: -Ucx: + ESBL, no abx needed PPX: DVT: SCD, lovenox GI: protonix PT: recommended [facility] upon discharge Dispo: Patient will be discharged tomorrow to [facility] Case reviewed and plan discussed with attending Dr Hood Robles, <Tracy Morataya - Last Filed: 07/29/18 13:33> Objective - Vital Signs/Intake and Output Vital Signs (last 24 hours): Temp Pulse Resp BP Pulse Ox 98.7 F 97 H 18 105/63 97 07/29/18 06:00 07/29/18 06:00 07/29/18 06:00 07/29/18 06:00 07/29/18 06:00 Intake and Output: 07/29/18 07/29/18 06:59 18:59 Intake Total 360 120 Output Total 200 Balance 360 -80 - Medications Medications: Current Medications Acetaminophen (Tylenol 325mg Tab) 650 mg PO Q6H PRN PRN Reason: Fever >100.4 F Last Admin: 07/28/18 22:34 Dose: 650 mg Acetaminophen (Tylenol 325 Mg Supp) 650 mg RC Q6H PRN PRN Reason: Fever >100.4 F Last Admin: 07/18/18 17:38 Dose: 650 mg Benzocaine/Menthol (Cepacol Sore Throat) 1 lester MT Q2H PRN PRN Reason: Sore Throat Last Admin: 07/28/18 23:34 Dose: 1 lester Enoxaparin Sodium (Lovenox) 30 mg SC DAILY [facility]; Protocol Last Admin: 07/29/18 10:05 Dose: 30 mg Metoprolol Tartrate (Lopressor) 50 mg PO BID [facility] Last Admin: 07/29/18 10:05 Dose: 50 mg Dalfampridine [ Ampyra] 10 Mg ( Home Med) 10 mg PO BID [facility] Last Admin: 07/29/18 10:06 Dose: 10 mg Ondansetron HCl (Zofran Inj) 4 mg IVP Q4 PRN PRN Reason: Nausea/Vomiting Last Admin: 07/28/18 12:42 Dose: 4 mg Oxybutynin Chloride (Ditropan Tab) 10 mg PO QID [facility] Last Admin: 07/29/18 10:05 Dose: 10 mg Pantoprazole Sodium (Protonix Ec Tab) 40 mg PO ACB [facility] Last Admin: 07/29/18 10:05 Dose: 40 mg - Labs Labs: 07/28/18 07:30 07/28/18 07:30 PT 15.7 SECONDS (9.4-12.5) H 07/22/18 06:30 INR 1.39 07/22/18 06:30 APTT 27.8 Seconds (26.9-38.3) 07/17/18 13:51 Attending/Attestation - Attestation I have personally seen and examined this patient.: Yes I have fully participated in the care of the patient.: Yes I have reviewed all pertinent clinical information, including history, physical exam and plan: Yes Notes (Text): 07/29/18 13:31 Attending note; Patient seen and examined with resident. Patient is alert and awake. Denies any abdominal pain, nausea. Tolerating liquid diet. Patient is a 68 year old female with history of multiple sclerosis that presen irina to the emergency room with nausea, vomiting, and abdominal pain. 1. Annular cecal lesion with partial obstruction. S/P exploratory laparotomy and right hemicolectomy for right colon mass and dilated small and large bowel Postop day #4. Patient is tolerating diet. Pending path results. Surgery follow-up appreciated. 2. Nausea and vomiting. resolved. Continue Zofran as needed. 3. SIRS. Leukocytosis. Resolved. Initial urine culture was positive for ESBL but patient asymptomatic. ID recomm endations appreciated. Repeat cultures Is negative. Procalcitonin is negative. Antibiotics stopped. 4. Hepatic cysts. GI recommendations appreciated. 5. Multiple Sclerosis. Continue Ampyra. 6. Overactive bladder. Continue oxybutynin 7. Fecal retention. Resolved. Continue to monitor. PT evaluation appreciated. Subacute rehab recommended. Case discussed with machine adjuster leader case trim in detail. Plan for discharge to rehab tomorrow. Follow-up with surgery in 2 weeks for sugar removal. Upon discharge the patient will follow up with PMD Dr. Muniz.
--- NOTE | 2018-07-28 21:27 | PN ---
DATE: 07/28/2018 SUBJECTIVE: The patient is in bed, in no acute distress, nontoxic. PHYSICAL EXAMINATION: VITAL SIGNS: Temperature is 97, blood pressure is 106/70, respiratory rate of 18. HEENT: Unremarkable. NECK: Supple. LUNGS: Decreased breath sounds. HEART: Normal S1, S2. ABDOMEN: Soft, nontender. LABORATORY DATA: Reveals a white count is 9.1, hemoglobin 9. BUN of 6, creatinine of 0.5. Urinalysis is noted. Microbiology is noted. ASSESSMENT AND PLAN: A 68-year-old female with multiple sclerosis, was admitted early, found to have a cecal mass, status post right hemicolectomy, post procedure day #4, with systemic inflammatory response syndrome, and she did have extended-spectrum beta-lactamases, Escherichia coli, asymptomatic bacteriuria. Currently, the patient's white count is resolved and currently he is off of antibiotics. Pathology is still pending. Kenn Goodrich MD
[2018-07-28] MEDS: Benzocaine/Menthol (Cepacol) Lozenge MT PRN (23:34)
--- NOTE | 2018-07-29 01:14 | CP.PCM.CON ---
History of Present Illness - History of Present Illness History of Present Illness: 68 year old female with a history of MS, presenting with abdominal pain, N/V, found to have a cecal mass s/p hemicolectomy. The patient notes to progressive abdominal discomfort with associated N/V for about 1 weeks time. She was found to have a cecal mass and is s/p hemicolectomy. Past medical history: MS Past surgical history: Right hemicolectomy Family history: Mother had breast cancer in her 30s, father with prostate ca ncer Social history: [place] tobacco, alcohol, and illicit drug use. Allergies: NKA Review of systems: All remaining review of systems including HEENT, cardiovascular, respiratory, gastrointestinal, genitourinary, musculoskeletal, dermatologic, neurologic, and psychiatric are negative unless mentioned in the HPI. Past Patient History - Infectious Disease Hx of Infectious Diseases: None - Tetanus Immunizations Tetanus Immunization: Unknown - Past Social History Smoking Status: Never Smoked - CARDIAC Hx Cardiac Disorders: No - PULMONARY Hx Respiratory Disorders: No - NEUROLOGICAL Hx Neurological Disorder: Yes Hx Multiple Sclerosis: Yes - HEENT Hx HEENT Problems: Yes Hx Blind: Yes - RENAL Hx Chronic Kidney Disease: No - ENDOCRINE/METABOLIC Hx Endocrine Disorders: No - HEMATOLOGICAL/ONCOLOGICAL Hx Blood Transfusions: No Hx Blood Transfusion Reaction: No - INTEGUMENTARY Hx Dermatological Problems: No - MUSCULOSKELETAL/RHEUMATOLOGICAL Hx Musculoskeletal Disorders: Yes Hx Falls: Yes Hx Unsteady Gait: Yes - GASTROINTESTINAL Hx Gastrointestinal Disorders: No - GENITOURINARY/GYNECOLOGICAL Hx Genitourinary Disorders: Yes Hx Urinary Tract Infection: Yes - PSYCHIATRIC Hx Psychophysiologic Disorder: No Hx Substance Use: No - SURGICAL HISTORY Hx Surgeries: No - ANESTHESIA Hx Anesthesia Reactions: No Hx Malignant Hyperthermia: No Meds Home Medications: Home Medication List Medication Instructions Recorded Confirmed Type Metoprolol Tartrate [Lopressor] 50 mg PO BID #0 tab 07/28/18 Rx oxyCODONE/Acetaminophen [Percocet 1 tab PO Q12 #4 tab 07/28/18 Rx 5/325 mg Tab] Allergies/Adverse Reactions: Allergies Allergy/AdvReac Type Severity Reaction Status Date / Time No Known Allergies Allergy Verified 07/17/18 12:26 - Medications Medications: Current Medications Acetaminophen (Tylenol 325mg Tab) 650 mg PO Q6H PRN PRN Reason: Fever >100.4 F Last Admin: 05/28/19 22:34 Dose: 650 mg Acetaminophen (Tylenol 325 Mg Supp) 650 mg RC Q6H PRN PRN Reason: Fever >100.4 F Last Admin: 07/18/18 17:38 Dose: 650 mg Benzocaine/Menthol (Cepacol Sore Throat) 1 lester MT Q2H PRN PRN Reason: Sore Throat Last Admin: 07/28/18 23:34 Dose: 1 lester Enoxaparin Sodium (Lovenox) 30 mg SC DAILY [facility]; Protocol Last Admin: 07/28/18 11:00 Dose: 30 mg Metoprolol Tartrate (Lopressor) 50 mg PO BID [facility] Last Admin: 07/28/18 17:53 Dose: 50 mg Dalfampridine [ Ampyra] 10 Mg ( Home Med) 10 mg PO BID [facility] Last Admin: 07/28/18 10:58 Dose: 10 mg Ondansetron HCl (Zofran Inj) 4 mg IVP Q4 PRN PRN Reason: Nausea/Vomiting Last Admin: 07/28/18 12:42 Dose: 4 mg Oxybutynin Chloride (Ditropan Tab) 10 mg PO QID [facility] Last Admin: 07/28/18 21:27 Dose: 10 mg Pantoprazole Sodium (Protonix Ec Tab) 40 mg PO ACB [facility] Physical Exam - Head Exam Head Exam: ATRAUMATIC - Eye Exam Eye Exam: Normal appearance - ENT Exam ENT Exam: Mucous Membranes Dry - Respiratory Exam Respiratory Exam: NORMAL BREATHING PATTERN - Cardiovascular Exam Cardiovascular Exam: +S1, +S2 - GI/Abdominal Exam GI & Abdominal Exam: Normal Bowel Sounds - Extremities Exam Extremities exam: Positive for: normal inspection - Neurological Exam Neurological exam: Oriented x3 - Psychiatric Exam Psychiatric exam: Normal Affect, Normal Mood - Skin Skin Exam: Warm Results - Vital Signs Recent Vital Signs: Last Vital Signs Temp 98.2 F 07/28/18 23:11 Pulse 90 07/28/18 23:11 Resp 20 07/28/18 23:11 BP 105/65 07/28/18 23:11 Pulse Ox 91 L 07/28/18 23:11 - Labs Result Diagrams: 07/28/18 07:30 07/28/18 07:30 Labs: Laboratory Results - last 24 hr 07/28/18 07/28/18 07:30 07:30 WBC 9.1 RBC 3.46 L Hgb 9.8 L Hct 30.8 L MCV 89.0 MCH 28.3 MCHC 31.8 RDW 15.8 H Plt Count 325 MPV 8.8 Neut % (Auto) 68.7 H Lymph % (Auto) 21.3 L [place] % (Auto) 6.8 H Eos % (Auto) 2.8 Baso % (Auto) 0.4 Lymph # (Auto) 1.9 [place] # (Auto) 0.6 Eos # (Auto) 0.3 Baso # (Auto) 0.04 Absolute Neuts (auto) 6.24 Sodium 139 Potassium 4.1 Chloride 107 Carbon Dioxide 29 Anion Gap 7 L BUN 6 L Creatinine 0.5 L Est GFR ( Amer) > 60 Est GFR (Non-Af Amer) > 60 Random Glucose 102 Calcium 8.1 L Phosphorus 3.2 Magnesium 1.9 Total Bilirubin 0.2 AST 17 ALT 26 Alkaline Phosphatase 47 Total Protein 4.7 L Albumin 2.4 L Globulin 2.4 Albumin/Globulin Ratio 1.0 L Assessment & Plan (1) Anemia Assessment and Plan: retic count, b12, folate, ferritin to further characterize. Status: Acute (2) Mass of cecum Assessment and Plan: s/p hemicolectomy - f/u pathology CT chest with IV contrast to complete staging [facility] Thank you for this interesting consult. Status: Acute
[2018-07-29] MEDS ORDERED: Iohexol 300 100 ML IJ ONE (07:22)
[2018-07-29] MEDS ORDERED: Pantoprazole 40 mg EC Tab PO SCH (07:30)
[2018-07-29 08:18] VITALS: BP 105/63; PULSE 97; RESP 18; TEMP 98.7; O2SAT 97
--- NOTE | 2018-07-29 08:34 | PN ---
DATE: 07/29/2018 SUBJECTIVE: The patient is in bed in no acute distress, nontoxic. No fevers. PHYSICAL EXAMINATION: VITAL SIGNS: On exam, temperature is 90, blood pressure is 105/60, respiratory rate of 18. HEENT: Unremarkable. NECK: Supple. HEART: Normal S1, S2. LUNGS: Have decreased breath sounds. ABDOMEN: Soft, nontender. LABORATORY DATA: Laboratory examination reveals a white count of 9.1. Hemoglobin of 9. Chemistries are noted. Review of orders reveals the patient to be off antibiotics. ASSESSMENT AND PLAN: This is a 68-year-old female with multiple sclerosis and admitted with cecal mass, status post right hemicolectomy, postprocedure day #5 with systemic inflammatory response syndrome and had Escherichia coli extended-spectrum beta-lactamases, asymptomatic bacteriuria not requiring therapy. Currently off antibiotics. Pathology is not available from the cecal mass. From infectious [id number] off antibiotics. No further antibiotics needed. Kenn Goodrich MD
[2018-07-29] MEDS: Enoxaparin 30 mg Syringe SC SCH (10:05)
[2018-07-29] MEDS: DALFAMPRIDINE 10 MG PO SCH (10:06)
--- NOTE | 2018-07-29 13:09 | CT ---
Date of service: 07/29/2018 PROCEDURE: CT Chest with contrast HISTORY: malignancy staging COMPARISON: 07/21/2018. CT abdomen pelvis documenting cecal lesion. TECHNIQUE: Contiguous axial images were obtained through the chest with intravenous contrast enhancement. Sagittal and coronal reconstructions were performed. IV contrast: 100 cc Omnipaque 300. Radiation dose: Total exam DLP = 204.02 mGy-cm. This CT exam was performed using one or more of the following dose reduction techniques: Automated exposure control, adjustment of the mA and/or kV according to patient size, and/or use of iterative reconstruction technique. FINDINGS: LUNGS: Progressive infiltrates with air bronchograms both lower lobes left greater than right. No suspicious pulmonary nodules or masses. MEDIASTINUM: Unremarkable thoracic aorta. No aneurysm or dissection. Normal sized heart. Main pulmonary artery unremarkable. No vascular congestion. No lymphadenopathy. No aortic atherosclerotic calcification or mural plaque present. PLEURA: No pleural fluid. No pneumothorax. BONES: No fracture. No destructive lesion. UPPER ABDOMEN: Grossly unremarkable. Multiple hepatic cysts. OTHER FINDINGS: None. IMPRESSION: Bilateral lower lobe infiltrates less greater than right likely infectious/inflammatory. Adjacent small pleural effusions. No evidence of neoplasm/tumor above the diaphragms.
--- NOTE | 2018-07-29 13:28 | CP.PCM.DIS ---
<Darwin Robles - Last Filed: 07/29/18 13:24> Provider - Provider Date of Admission: 07/17/18 16:22 Attending physician: Tracy Morataya MD Primary care physician: Jamel Muniz MD Consults: 07/18/18 00:16 Nursing Referral for Palliative Care Routine Comment: Physician Instructions: Reason For Exam: * 07/18/18 08:11 Physician Consult Routine Comment: Consulting Provider: Lon Pacheco V Consulting Physician: Lon Pacheco V Reason for Consult: Nausea; vomiting; poor po intake 07/18/18 14:56 Physician Consult Routine Comment: Consulting Provider: Joshua Sanabria Consulting Physician: Joshua Sanabria Reason for Consult: SBO 07/19/18 08:47 Infectious Disease Consult Routine Comment: Consulting Provider: Kenn Goodrich Consulting Physician: Kenn Goodrich Reason for Consult: ESBL UTI 07/22/18 15:47 Cardiology Consult Routine Comment: Consulting Provider: Brian Gonzales Consulting Physician: Brian Gonzales Reason for Consult: Cardiac Risk Stratification for R Hemicolectomy 07/25/18 15:05 Hematology Oncology Consult Routine Comment: Consulting Provider: Tariq Rowe Consulting Physician: Tariq Rowe Reason for Consult: GI Mass Time Spent in preparation of Discharge (in minutes): 45 Hospital Course - Lab Results Lab Results: Micro Results 07/25/18 11:00 Blood Blood Culture - Preliminary NO GROWTH AFTER 4 DAYS 07/25/18 11:30 Blood Blood Culture - Preliminary NO GROWTH AFTER 4 DAYS 07/25/18 13:00 Urine Random Urine Culture - Final No Growth (<1,000 CFU/ML) 07/18/18 01:40 Blood Blood Culture - Final NO GROWTH AFTER 5 DAYS 07/18/18 01:40 Blood Gram Stain - Final TEST NOT PERFORMED 07/18/18 01:00 Blood Blood Culture - Final NO GROWTH AFTER 5 DAYS 07/18/18 01:00 Blood Gram Stain - Final TEST NOT PERFORMED 07/17/18 14:10 Urine,Clean Catch Urine Culture - Final Escherichia Coli Most Recent Lab Values WBC 9.1 10^3/uL (4.5-11.0) 07/28/18 07:30 RBC 3.46 10^6/uL (3.5-6.1) L 07/28/18 07:30 Hgb 9.8 g/dL (12.0-16.0) L 07/28/18 07:30 Hct 30.8 % (36.0-48.0) L 07/28/18 07:30 MCV 89.0 fl (80.0-105.0) 07/28/18 07:30 MCH 28.3 pg (25.0-35.0) 07/28/18 07:30 MCHC 31.8 g/dl (31.0-37.0) 07/28/18 07:30 RDW 15.8 % (11.5-14.5) H 07/28/18 07:30 Plt Count 325 10^3/uL (120.0-450.0) 07/28/18 07:30 MPV 8.8 fl (7.0-11.0) 07/28/18 07:30 Neut % (Auto) 68.7 % (50.0-68.0) H 07/28/18 07:30 Lymph % (Auto) 21.3 % (22.0-35.0) L 07/28/18 07:30 Newberry % (Auto) 6.8 % (1.0-6.0) H 07/28/18 07:30 Eos % (Auto) 2.8 % (1.5-5.0) 07/28/18 07:30 Baso % (Auto) 0.4 % (0.0-3.0) 07/28/18 07:30 Lymph # (Auto) 1.9 (1.2-3.4) 07/28/18 07:30 Newberry # (Auto) 0.6 (0.1-0.6) 07/28/18 07:30 Eos # (Auto) 0.3 (0.0-0.7) 07/28/18 07:30 Baso # (Auto) 0.04 K/mm3 (0.0-2.0) 07/28/18 07:30 Absolute Neuts (auto) 6.24 (1.4-6.5) 07/28/18 07:30 ESR 35 mm/hr (0.0-20.0) H 07/17/18 23:40 PT 15.7 SECONDS (9.4-12.5) H 07/22/18 06:30 INR 1.39 07/22/18 06:30 APTT 27.8 Seconds (26.9-38.3) 07/17/18 13:51 Sodium 139 mmol/L (132-148) 07/28/18 07:30 Potassium 4.1 mmol/L (3.6-5.0) 07/28/18 07:30 Chloride 107 mmol/L (98-107) 07/28/18 07:30 Carbon Dioxide 29 mmol/L (21-33) 07/28/18 07:30 Anion Gap 7 (10-20) L 07/28/18 07:30 BUN 6 mg/dL (7-21) L 07/28/18 07:30 Creatinine 0.5 mg/dl (0.7-1.2) L 07/28/18 07:30 Est GFR ( Amer) > 60 07/28/18 07:30 Est GFR (Non-Af Amer) > 60 07/28/18 07:30 POC Glucose (mg/dL) 97 mg/dL (65-110) 07/20/18 10:52 Random Glucose 102 mg/dL (70-110) 07/28/18 07:30 Calcium 8.1 mg/dL (8.4-10.5) L 07/28/18 07:30 Phosphorus 3.2 mg/dL (2.5-4.5) 07/28/18 07:30 Magnesium 1.9 mg/dL (1.7-2.2) 07/28/18 07:30 Total Bilirubin 0.2 mg/dL (0.2-1.3) 07/28/18 07:30 AST 17 U/L (14-36) 07/28/18 07:30 ALT 26 U/L (7-56) 07/28/18 07:30 Alkaline Phosphatase 47 U/L (38-126) 07/28/18 07:30 Troponin I < 0.01 ng/mL 07/17/18 13:51 C-React Prot High Sens > 15.00 mg/L (1.00-3.00) H 07/17/18 23:40 Total Protein 4.7 g/dL (5.8-8.3) L 07/28/18 07:30 Albumin 2.4 g/dL (3.0-4.8) L 07/28/18 07:30 Globulin 2.4 gm/dL 07/28/18 07:30 Albumin/Globulin Ratio 1.0 (1.1-1.8) L 07/28/18 07:30 Lipase 93 U/L (23-300) 07/17/18 13:51 Carcinoembryonic Ag 1.2 ng/mL (0.0-3.0) 07/24/18 06:40 Procalcitonin 0.10 NG/ML (0.19-0.49) L 07/25/18 06:00 Urine Color Yellow (YELLOW) 07/25/18 13:00 Urine Appearance Clear (CLEAR) 07/25/18 13:00 Urine pH 6.0 (4.7-8.0) 07/25/18 13:00 Ur Specific Hazel >= 1.030 (1.005-1.035) 07/25/18 13:00 Urine Protein Negative mg/dL (<30 mg/dL) 07/25/18 13:00 Urine Glucose (UA) Negative mg/dL (NEGATIVE) 07/25/18 13:00 Urine Ketones >=80 mg/dL (NEGATIVE) 07/25/18 13:00 Urine Blood Negative (NEGATIVE) 07/25/18 13:00 Urine Nitrate Negative (NEGATIVE) 07/25/18 13:00 Urine Bilirubin Small (NEGATIVE) H 07/25/18 13:00 Urine Urobilinogen 0.2 E.U./dL (<1 E.U./dL) 07/25/18 13:00 Ur Leukocyte Esterase Negative Kendall/uL (NEGATIVE) 07/25/18 13:00 Urine RBC 0 - 2 /hpf (0-2) 07/17/18 14:10 Urine WBC 0 - 2 /hpf (0-6) 07/17/18 14:10 Urine Bacteria Many /hpf (NONE) 07/17/18 14:10 Stool Occult Blood Negative (NEGATIVE) 07/17/18 16:00 Blood Type A NEGATIVE 07/23/18 11:10 Blood Type Confirm A NEGATIVE 07/17/18 23:40 Antibody Screen Negative 07/23/18 11:10 Crossmatch See Detail 07/23/18 11:10 BBK History Checked Patient has bt 07/23/18 11:10 - Hospital Course Hospital Course: 68 F with a history of multiple sclerosis presented to the ED with complains of nausea, vomiting and abdominal pain. CT A/P showed dilated small bowel. liquid stool noted throughout small intestine and mix of hard stool and liquid noted in colon. IV antibiotic, pain meds, IVF given. Serial abdominal xray did not show any improvement. Patient was a high risk for colonscopy ass per GI. Surgery was consulted and patient underwent ex-lap in the setting of SBO with cecal mass. Patient was evaluated by cardiology before surgery with preoperative Echo that showed EF 51.6% borderline LV function. Patient was doing well, tolerating diet, having BM, ambulating OOB with PT after surgery and pain controlled with meds. Blood/urine cultures were negative. Patient has h/o multiple sclerosis, home med ampyra continued. She uses wheelchair/walker at home, PT continued. Hepatic cysts found on abd CT, GI consider triple phase liver CT at a later date. Ucx was positive for ESBL, patient asymptomatic, no abx needed. PT recommended [facility] upon discharge and patient got accepted. Today, she is hemodynamically stable, afebrile, clinically optimized for discharge to [facility]. Patient will be contacted for pathology report results for the cecal mass. Additional instructions as below. Discharge Exam - Head Exam Head Exam: ATRAUMATIC, NORMAL INSPECTION, NORMOCEPHALIC - Eye Exam Eye Exam: EOMI, Normal appearance, PERRL Pupil Exam: NORMAL ACCOMODATION, PERRL - ENT Exam ENT Exam: Normal Exam - Neck Exam Neck exam: Normal Inspection - Respiratory Exam Respiratory Exam: Clear to PA & Lateral, NORMAL BREATHING PATTERN - Cardiovascular Exam Cardiovascular Exam: REGULAR RHYTHM, +S1, +S2. absent: RRR, Rubs - GI/Abdominal Exam GI & Abdominal Exam: Normal Bowel Sounds, Soft - Extremities Exam Extremities exam: normal capillary refill, pedal pulses present - Back Exam Back exam: FULL ROM - Neurological Exam Neurological exam: Alert, CN II-XII Intact, Oriented x3 - Psychiatric Exam Psychiatric exam: Normal Affect, Normal Mood - Skin Skin Exam: Dry, Intact, Normal Color, Warm Discharge Plan - Discharge Medications Prescriptions: oxyCODONE/Acetaminophen [Percocet 5/325 mg Tab] 1 tab PO Q12 #4 tab - Follow Up Plan Condition: GUARDED Disposition: TRANSF TO SNF Instructions: Multiple Sclerosis in Adults, Preventing Falls in the Older Adult, Anemia of Chronic Disease (DC), Opioids for Short-Term Treatment of Pain Additional Instructions: Please follow with surgery Dr Vogt in 10 days for staple removal. Please follow up with Dr. Rowe in his office in 7 days for the pathology report Please follow up with Dr. Pacheco, the stomach doctor in a month. Please follow up with your primary care doctor, Dr. Muniz in 3-5 days Take the metoprolol as prescribed Take the percocet, pain medication as needed for pain. Please return if the symptoms returns or call 911. Referrals: Krunal Rowe MD [Staff Provider] - Jamel Muniz MD [Primary Care Provider] - Lon Pacheco MD [Medical Doctor] - Joshua Sanabria MD [Staff Provider] - <Tracy Morataya - Last Filed: 07/30/18 13:37> Provider - Provider Date of Admission: 07/17/18 16:22 Attending physician: Tracy Morataya MD Primary care physician: Jamel Muniz MD Consults: 07/18/18 00:16 Nursing Referral for Palliative Care Routine Comment: Physician Instructions: Reason For Exam: * 07/18/18 08:11 Physician Consult Routine Comment: Consulting Provider: Lon Pacheco V Consulting Physician: Lon Pacheco V Reason for Consult: Nausea; vomiting; poor po intake 07/18/18 14:56 Physician Consult Routine Comment: Consulting Provider: Joshua Sanabria Consulting Physician: Joshua Sanabria Reason for Consult: SBO 07/19/18 08:47 Infectious Disease Consult Routine Comment: Consulting Provider: Kenn Goodrich Consulting Physician: Kenn Goodrich Reason for Consult: ESBL UTI 07/22/18 15:47 Cardiology Consult Routine Comment: Consulting Provider: Brian Gonzales Consulting Physician: Brian Gonzales Reason for Consult: Cardiac Risk Stratification for R Hemicolectomy 07/25/18 15:05 Hematology Oncology Consult Routine Comment: Consulting Provider: Tariq Rwoe Consulting Physician: Tariq Rowe Reason for Consult: GI Mass Hospital Course - Lab Results Lab Results: Micro Results 07/25/18 11:00 Blood Blood Culture - Final NO GROWTH AFTER 5 DAYS 07/25/18 11:00 Blood Gram Stain - Final TEST NOT PERFORMED 07/25/18 11:30 Blood Blood Culture - Final NO GROWTH AFTER 5 DAYS 07/25/18 11:30 Blood Gram Stain - Final TEST NOT PERFORMED 07/25/18 13:00 Urine Random Urine Culture - Final No Growth (<1,000 CFU/ML) 07/18/18 01:40 Blood Blood Culture - Final NO GROWTH AFTER 5 DAYS 07/18/18 01:40 Blood Gram Stain - Final TEST NOT PERFORMED 07/18/18 01:00 Blood Blood Culture - Final NO GROWTH AFTER 5 DAYS 07/18/18 01:00 Blood Gram Stain - Final TEST NOT PERFORMED 07/17/18 14:10 Urine,Clean Catch Urine Culture - Final Escherichia Coli Most Recent Lab Values WBC 9.1 10^3/uL (4.5-11.0) 07/28/18 07:30 RBC 3.46 10^6/uL (3.5-6.1) L 07/28/18 07:30 Hgb 9.8 g/dL (12.0-16.0) L 07/28/18 07:30 Hct 30.8 % (36.0-48.0) L 07/28/18 07:30 MCV 89.0 fl (80.0-105.0) 07/28/18 07:30 MCH 28.3 pg (25.0-35.0) 07/28/18 07:30 MCHC 31.8 g/dl (31.0-37.0) 07/28/18 07:30 RDW 15.8 % (11.5-14.5) H 07/28/18 07:30 Plt Count 325 10^3/uL (120.0-450.0) 07/28/18 07:30 MPV 8.8 fl (7.0-11.0) 07/28/18 07:30 Neut % (Auto) 68.7 % (50.0-68.0) H 07/28/18 07:30 Lymph % (Auto) 21.3 % (22.0-35.0) L 07/28/18 07:30 Newberry % (Auto) 6.8 % (1.0-6.0) H 07/28/18 07:30 Eos % (Auto) 2.8 % (1.5-5.0) 07/28/18 07:30 Baso % (Auto) 0.4 % (0.0-3.0) 07/28/18 07:30 Lymph # (Auto) 1.9 (1.2-3.4) 07/28/18 07:30 Newberry # (Auto) 0.6 (0.1-0.6) 07/28/18 07:30 Eos # (Auto) 0.3 (0.0-0.7) 07/28/18 07:30 Baso # (Auto) 0.04 K/mm3 (0.0-2.0) 07/28/18 07:30 Absolute Neuts (auto) 6.24 (1.4-6.5) 07/28/18 07:30 ESR 35 mm/hr (0.0-20.0) H 07/17/18 23:40 PT 15.7 SECONDS (9.4-12.5) H 07/22/18 06:30 INR 1.39 07/22/18 06:30 APTT 27.8 Seconds (26.9-38.3) 07/17/18 13:51 Sodium 139 mmol/L (132-148) 07/28/18 07:30 Potassium 4.1 mmol/L (3.6-5.0) 07/28/18 07:30 Chloride 107 mmol/L (98-107) 07/28/18 07:30 Carbon Dioxide 29 mmol/L (21-33) 07/28/18 07:30 Anion Gap 7 (10-20) L 07/28/18 07:30 BUN 6 mg/dL (7-21) L 07/28/18 07:30 Creatinine 0.5 mg/dl (0.7-1.2) L 07/28/18 07:30 Est GFR ( Amer) > 60 07/28/18 07:30 Est GFR (Non-Af Amer) > 60 07/28/18 07:30 POC Glucose (mg/dL) 97 mg/dL (65-110) 07/20/18 10:52 Random Glucose 102 mg/dL (70-110) 07/28/18 07:30 Calcium 8.1 mg/dL (8.4-10.5) L 07/28/18 07:30 Phosphorus 3.2 mg/dL (2.5-4.5) 07/28/18 07:30 Magnesium 1.9 mg/dL (1.7-2.2) 07/28/18 07:30 Total Bilirubin 0.2 mg/dL (0.2-1.3) 07/28/18 07:30 AST 17 U/L (14-36) 07/28/18 07:30 ALT 26 U/L (7-56) 07/28/18 07:30 Alkaline Phosphatase 47 U/L (38-126) 07/28/18 07:30 Troponin I < 0.01 ng/mL 07/17/18 13:51 C-React Prot High Sens > 15.00 mg/L (1.00-3.00) H 07/17/18 23:40 Total Protein 4.7 g/dL (5.8-8.3) L 07/28/18 07:30 Albumin 2.4 g/dL (3.0-4.8) L 07/28/18 07:30 Globulin 2.4 gm/dL 07/28/18 07:30 Albumin/Globulin Ratio 1.0 (1.1-1.8) L 07/28/18 07:30 Lipase 93 U/L (23-300) 07/17/18 13:51 Carcinoembryonic Ag 1.2 ng/mL (0.0-3.0) 07/24/18 06:40 Procalcitonin 0.10 NG/ML (0.19-0.49) L 07/25/18 06:00 Urine Color Yellow (YELLOW) 07/25/18 13:00 Urine Appearance Clear (CLEAR) 07/25/18 13:00 Urine pH 6.0 (4.7-8.0) 07/25/18 13:00 Ur Specific Hazel >= 1.030 (1.005-1.035) 07/25/18 13:00 Urine Protein Negative mg/dL (<30 mg/dL) 07/25/18 13:00 Urine Glucose (UA) Negative mg/dL (NEGATIVE) 07/25/18 13:00 Urine Ketones >=80 mg/dL (NEGATIVE) 07/25/18 13:00 Urine Blood Negative (NEGATIVE) 07/25/18 13:00 Urine Nitrate Negative (NEGATIVE) 07/25/18 13:00 Urine Bilirubin Small (NEGATIVE) H 07/25/18 13:00 Urine Urobilinogen 0.2 E.U./dL (<1 E.U./dL) 07/25/18 13:00 Ur Leukocyte Esterase Negative Kendall/uL (NEGATIVE) 07/25/18 13:00 Urine RBC 0 - 2 /hpf (0-2) 07/17/18 14:10 Urine WBC 0 - 2 /hpf (0-6) 07/17/18 14:10 Urine Bacteria Many /hpf (NONE) 07/17/18 14:10 Stool Occult Blood Negative (NEGATIVE) 07/17/18 16:00 Blood Type A NEGATIVE 07/23/18 11:10 Blood Type Confirm A NEGATIVE 07/17/18 23:40 Antibody Screen Negative 07/23/18 11:10 Crossmatch See Detail 07/23/18 11:10 BBK History Checked Patient has bt 07/23/18 11:10 Attending/Attestation - Attestation I have personally seen and examined this patient.: Yes I have fully participated in the care of the patient.: Yes I have reviewed all pertinent clinical information, including history, physical exam and plan: Yes Notes (Text): 07/30/18 13:36 Attending note; Patient seen and examined with resident. Patient is alert and awake. Denies any abdominal pain, nausea. Tolerating liquid diet. Patient is a 68 year old female with history of multiple sclerosis that presented to the emergency room with nausea, vomiting, and abdominal pain. 1. Annular cecal lesion with partial obstruction. S/P exploratory laparotomy and right hemicolectomy for right colon mass and dilated small and large bowel. Patient is tolerating diet. Pending path results. Surgery follow-up appreciated. 2. Nausea and vomiting. resolved. Continue Zofran as needed. 3. SIRS. Leukocytosis. Resolved. Initial urine culture was positive for ESBL but patient asymptomatic. ID recommendations appreciated. Repeat cultures Is negative. Procalcitonin is negative. Antibiotics stopped. 4. Hepatic cysts. GI recommendations appreciated. 5. Multiple Sclerosis. Continue Ampyra. 6. Overactive bladder. Continue oxybutynin 7. Fecal retention. Resolved. Continue to monitor. PT evaluation appreciated. Subacute rehab recommended. Case discussed with director case management in detail. Discharge to rehab today. Follow-up with surgery in 2 weeks for sugar removal. Upon discharge the patient will follow up with PMD Dr. Muniz. Diagnosis discussed with PMD in detail.
--- NOTE | 2018-07-29 16:15 | PN ---
DATE: 07/29/2018 SUBJECTIVE: The patient denies any chest pain or shortness of breath. Tachycardia has improved. She is reporting diarrhea. PHYSICAL EXAMINATION: VITAL SIGNS: Blood pressure 105/63, heart rate 97, temperature 98.7, respirations 18. HEENT: Pale conjunctivae. HEART: S1 and S2, regular. CHEST: Clear. EXTREMITIES: No edema. LABORATORY DATA: Yesterday's hemoglobin and hematocrit 9.8 and 30.8. White count and platelet count are within normal limits. Yesterday's SMA-7 is within normal limits except for BUN and creatinine of 6 and 0.5 respectively. Urine culture is positive for Escherichia coli. ASSESSMENT: 1. Status post right hemicolectomy for cecal mass. Biopsy report is still pending. 2. Left ventricular diastolic dysfunction. 3. Multiple sclerosis and legal blindness. 4. Anemia. RECOMMENDATIONS: Continue current Lopressor 50 mg twice a day, subcutaneous Lovenox at 30 mg once a day. I will follow chest CT scan that was performed today. Brian Gonzales MD
--- NOTE | 2018-07-30 02:30 | OP ---
PROCEDURE DATE: 07/24/2018 SURGEON: Joshua Sanabria MD ASSISTANTS: Zachary Luciano DO, PGY-4; William Luna DO, PGY-3; and Ashley Avina MS-3 ANESTHESIA: General. PREOPERATIVE DIAGNOSIS: Right colon mass. POSTOPERATIVE DIAGNOSIS: Right colon mass. OPERATION PERFORMED: Exploratory laparotomy with right hemicolectomy. SPECIMEN: Right colon. BLOOD LOSS: 50 mL. DESCRIPTION OF PROCEDURE: The patient was taken to the OR and placed in the supine position, and general anesthesia was administered. She was given preoperative antibiotics per SCIP protocol. The abdomen was prepped and draped in the usual sterile fashion. A midline laparotomy incision was made with a 10-blade, and the subcutaneous tissues were with the electrocautery down to the anterior abdominal fascia. Once divided, the intra-abdominal cavity was accessed, and the bowel was protected. The rest of the abdominal wall was opened in the midline. Next, the small bowel was retracted with digital exploration, and there was evidence of a right colon mass near the cecum with some adherence to the surrounding tissue. With mobilization of the colon along the line of Toldt down the right gutter, the entire ileocecal region up to the transverse colon was mobilized into the field. Next, a window was made approximately 3 inches from the ileocecal valve. A NETTE was fired across the ileum. Second NETTE device was fired across the proximal transverse colon sparing the middle colic artery. Dissection was then carried down along the mesentery down to the root of the mesentery. We made note of several lymph nodes that were taken with the specimen. The mesentery and vessels were taken with the LigaSure device and double fired to ensure hemostasis. Once the specimen was freed and sent to Pathology, the abdominal cavity was inspected. There was no evidence of bleeding seen. Next, a [id number] anastomosis was performed between the transverse colon and the terminal ileum. A NETTE stapler was fired side by side, and then a NETTE was used to close the anastomosis. Patent anastomosis was palpated, the anastomosis was then protected with 2-0 Vicryl sutures. Suture sites were inspected, and there was no evidence of leakage. The intra-abdominal cavity was then thoroughly irrigated with sterile saline, and the anastomosis was returned into the abdomen. Omentum was returned over the intestine which appeared mildly dilated from the near obstruction. The abdominal wall was then reapproximated, and the fascial layer was closed using two running looped 0 PDS sutures. Skin was then closed with sterile sugar. A sterile dressing was applied. The skin was cleaned. The patient was awakened from the anesthesia without difficulty and extubated in the operating room and transferred to the PACU in stable condition. At the end of the case, all instruments and sponge counts were correct per the nursing staff. Zachary Luciano DO Joshua Sanabria MD NICK
--- NOTE | 2018-07-30 14:30 | CP.PCM.PN ---
Subjective - Date & Time of Evaluation Date of Evaluation: 07/30/18 Time of Evaluation: 14:25 - Subjective Subjective: I called Ms Osorio for the pathology lab results of cecal mass. Patient was informed that the report showed cancer of the colon. She asked me to call her brother Mario at [phone] to inform him or his about the result. Patient was asked to follow up with her PCP and oncologist. Call was placed and brother was informed to follow up with Dr Rowe as outpatient for further management. Objective - Vital Signs/Intake and Output Vital Signs (last 24 hours): Temp Pulse Resp BP Pulse Ox 98.7 F 97 H 18 105/63 97 07/29/18 06:00 07/29/18 06:00 07/29/18 06:00 07/29/18 06:00 07/29/18 06:00 - Labs Labs: 07/28/18 07:30 07/28/18 07:30 PT 15.7 SECONDS (9.4-12.5) H 07/22/18 06:30 INR 1.39 07/22/18 06:30 APTT 27.8 Seconds (26.9-38.3) 07/17/18 13:51
== END 2018-07-29 14:33 | DRG 330 ==
LOC: ED 12:14 → ERH 16:22 → 3RNO 18:50 → 5RNO 07-22 14:07
PROVIDERS: ADMIT Internal Medicine; ATTEND Internal Medicine
PROC: 0DTF0ZZ Resection of Right Large Intestine, Open Approach (ICD-10-PCS; principal; 2018-07-24 10:30)
DX: C18.2 Malignant neoplasm of ascending colon (principal); C18.0 Malignant neoplasm of cecum; C77.2 Secondary and unspecified malignant neoplasm of intra-abdominal lymph nodes; K56.600 Partial intestinal obstruction, unspecified as to cause; N39.0 Urinary tract infection, site not specified; J98.11 Atelectasis; K56.0 Paralytic ileus; R65.10 Systemic inflammatory response syndrome (SIRS) of non-infectious origin without acute organ dysfunction; K52.9 Noninfective gastroenteritis and colitis, unspecified; G35 Multiple sclerosis; E87.5 Hyperkalemia; E86.0 Dehydration; R82.71 Bacteriuria; H54.8 Legal blindness, as defined in USA; F41.9 Anxiety disorder, unspecified; Z99.3 Dependence on wheelchair; N32.81 Overactive bladder; Z16.12 Extended spectrum beta lactamase (ESBL) resistance; K59.00 Constipation, unspecified; E16.2 Hypoglycemia, unspecified; D63.8 Anemia in other chronic diseases classified elsewhere; K76.89 Other specified diseases of liver; Z53.20 Procedure and treatment not carried out because of patient's decision for unspecified reasons; Z79.899 Other long term (current) drug therapy; Z80.3 Family history of malignant neoplasm of breast; Z80.42 Family history of malignant neoplasm of prostate; Z87.440 Personal history of urinary (tract) infections